=== PATIENT | male | born 1945 | race Caucasian/White ===

== ENCOUNTER 2025-01-13 10:07 | Outpatient (RCR) | payer MEDICARE, OTHER, SELFPAY ==
[2024-11-30 11:53] LABS: INR 1.5; Prothrombin Time 18.6 Seconds (11.1-14.7)
--- OUTSIDE RECORDS SUMMARY | 2024-11-30 12:18 | XMS_ITS | CONTINUITY OF CARE DOCUMENT ---
Author Name evelia altamirano Address Unknown Organization [facility] Address [address] [place] [address] Phone [phone] Care Team Providers Care Barrel Painter Name Role Phone Israel SARGENT, Chris Balbuena Unavailable [phone] STACI SARGENT, SPIKE Unavailable STACI SARGENT, SPIKE Unavailable [phone] PROBLEMS Condition Status Date Provider Notes Syncope active Irene Rodrigez Chronic atrial fibrillation active Sumeet Nascimento Hypertension active Janette Ricks [facility] Dizziness completed - Chris Wood MD Mitral regurgitation active Chris Wood MD Left atrial enlargement active Chris Wood MD Hyperlipidemia active ? Chris Wood MD Tobacco use quit active Chris Wood MD Obstructive sleep apnea - on CPAP active Chris Wood MD Shortness of breath completed - Chris Wood MD Bradycardia sinus active Janette Ricks [facility] CAD - 11/18 50% LCX active Chris Wood MD Carotid artery stenosis, <50% ICA b/l active Chris Wood MD Current use of Coumadin - INR by Dr. 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 Chris Wood MD ENCOUNTERS Date Type Provider Location Encounter Diag nosis 0 - 0 In-person encounter Office Visit Chris Wood MD [place] [facility] 4 - 6 In-person encounter Office Visit Chris Wood MD [place] [facility] Diastolic CHF 6 - 0 In-person encounter Office Visit Chris Wood MD [place] [facility] 3 - 3 In-person encounter Office Visit Amilcar Mendez MD [facility] Cardiology examination 4 - 0 In-person encounter Office Visit Chris Wood MD [place] [facility] CVADyspnea on exertionOther terminal operator (current) drug therapy 8 - 1 In-person encounter Office Visit Chris Wood MD [place] [facility] 8 - 2 In-person encounter Office Visit Chris Wood MD [place] [facility] Chronic atrial fibrillation 8 - 9 In-person encounter Office Visit Chris Wood MD [place] [facility] Chronic atrial fibrillationDizzinessShortness of breath 7 - 7 In-person encounter Office Visit Chris Wood MD [place] [facility] TIA 1 - 6 In-person encounter Office Visit Chris Wood MD [place] [facility] Chronic atrial fibrillationObstructive sleep apnea - on CPAPCAD - 11/18 50% LCXCurrent use of Coumadin - INR by Dr. Seay origin of LCX from RCA 4 - 1 In-person encounter Office Visit Chris Wood MD [place] [facility] CAD - 11/18 50% LCXCarotid artery stenosis, <50% ICA b/lCurrent use of Coumadin - INR by Dr. Mendez 4 - 6 In-person encounter Office Visit Chris Wood MD [place] [facility] Chronic atrial fibrillationHypertensionMitral regurgitationLeft atrial enlargementHyperlipidemiaTobacco use quitObstructive sleep apnea - on CPAPBradycardia sinus VITAL SIGNS Date Observation Value Provider Body Mass Index (Ratio) 22.44 kg/m2 Trevon Lainez blood pressure, diastolic 90 mm[Hg] Pedrito ylsybil [facility] blood pressure, systolic 152 mm[Hg] Mayda lamb [facility] oxygen saturation, oximetry 95 % Maira [facility] pulse rate 87 /min Maira [facility] weight E&M 152 [lb_av] [facility] [in_i] [facility] Body Mass Index (Ratio) 37.98 kg/m2 Chris Wood MD blood pressure, diastolic 99 mm[Hg] [facility] blood pressure, systolic 159 mm[Hg] Nataly nicho [place] oxygen saturation, oximetry 94 % [facility] pulse rate 65 /min [facility] weight E&M 257.2 [lb_av] [facility] blood pressure, cuff size regular [facility] height E&M 69 [in_i] [facility] Body Mass Index (Ratio) 37.36 kg/m2 Chang Gonzales blood pressure, diastolic 86 mm[Hg] Am kaylee Ventimiglia [facility] blood pressure, systolic 141 mm[Hg] [place] nda Ventimiglia [facility] oxygen saturation, oximetry 96 % Katelin Ventimiglia [employer]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 respiratory rate E&M 22 /min Katelin Ventimiglia [employer]ICE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 pulse rate 85 /min Katelin Ventimig jaswinder [facility] weight E&M 253 [lb_av] Katelin Ventimig jaswinder [facility] Body Mass Index (Ratio) 37.65 kg/m2 Livan Mendez MD blood pressure, diastolic 99 mm[Hg] Nata nkLog blood pressure, systolic 148 mm[Hg] Keke kLog oxygen saturation, oximetry 94 % Masha Bradshaw pulse rate 87 /min Masha Bradshaw blood pressure, cuff size regular Paddy tellez Brad[place] blood pressure, diastolic 99 mm[Hg] Paddy tellez [place] blood pressure, systolic 148 mm[Hg] Tab ithsybil Bradshaw weight E&M 255 [lb_av] Masha Bradshaw respiratory rate E&M 12 /min Masha Bradshaw height E&M 69 [in_i] Masha [place] Body Mass Index (Ratio) 37.21 kg/m2 Oanh Monahan blood pressure, cuff size large Ke rri Aldairuenevish blood pressure, diastolic 96 mm[Hg] Ke rri [place] blood pressure, systolic 162 mm[Hg] Riley ri Elia oxygen saturation, oximetry 95 % Irene Reginenetye respiratory rate E&M 12 /min Irene G arthurenenfelder pulse rate 84 /min Irene Gruenenfe ld weight E&M 252 [lb_av] Irene Aldairuenenfe ld height E&M 69 [in_i] Irene Gruenenfe [facility] Body Mass Index (Ratio) 36.77 kg/m2 Oanh Monahan blood pressure, diastolic 105 mm[Hg] Nata [facility]Log[facility] blood pressure, systolic 163 mm[Hg] Keke [facility]Logic blood pressure, diastolic 105 mm[Hg] Nata nkLogic blood pressure, systolic 163 mm[Hg] Keke kLogic blood pressure, diastolic 105 mm[Hg] Ca therine Rob blood pressure, systolic 163 mm[Hg] Cat herine [place] oxygen saturation, oximetry 98 % Beatriz [place] respiratory rate E&M 16 /min Catheri ne [place] pulse rate 86 /min Beatriz [place] weight E&M 249 [lb_av] Beatriz [place] blood pressure, cuff size large Ca therine Rob height E&M 69 [in_i] Beatriz Rob Body Mass Index (Ratio) 36.77 kg/m2 Grupo davis Pily blood pressure, cuff size large Ke rri Gruenenfelder blood pressure, diastolic 72 mm[Hg] Ke rri Gruenenfelder blood pressure, systolic 110 mm[Hg] Riley ri Kareenelder oxygen saturation, oximetry 98 % Irene [place] respiratory rate E&M 16 /min Irene avendano pulse rate 82 /min Irene Reginenenfe lder weight E&M 249 [lb_av] Irene Gruenenfe lder height E&M 69 [in_i] Irene Gruenenfe lder Body Mass Index (Ratio) 36.03 kg/m2 Grupo Nascimento oxygen saturation, oximetry 96 % Staci Lockhart respiratory rate E&M 16 /min Staci Lockhart pulse rate 86 /min Staci mark blood pressure, cuff size regular Cy ruy Lockhart blood pressure, diastolic 76 mm[Hg] Cy nthia Lockhart blood pressure, systolic 130 mm[Hg] Desire Lockhart weight E&M 244 [lb_av] Staci mark height E&M 69 [in_i] Staci Colon l Body Mass Index (Ratio) 36.38 kg/m2 Grupo Nascimento blood pressure, diastolic 93 mm[Hg] Yessi Salgado blood pressure, systolic 144 mm[Hg] Litzy Salgado oxygen saturation, oximetry 96 % Karan Salgado respiratory rate E&M 18 /min Eladio Salgado pulse rate 85 /min Karan Young sammyangela weight E&M 246.4 [lb_av] Karan goodon height E&M 69 [in_i] Karan Young sammy Body Mass Index (Ratio) 36.03 kg/m2 Grupo Nascimento blood pressure, cuff size regular Ke luis Rodrigez blood pressure, diastolic 80 mm[Hg] Ke rri Elia blood pressure, systolic 120 mm[Hg] Riley Rodrigez weight E&M 244 [lb_av] Irene wilhelmer oxygen saturation, oximetry 98 % Irene Rodrigez respiratory rate E&M 16 /min Irene avendano pulse rate 84 /min Irene wilhelmer height E&M 69 [in_i] Irene wilhelmer Body Mass Index (Ratio) 36.50 kg/m2 Grupo Nascimento blood pressure, resting Yes Chris Wood MD blood pressure, diastolic 86 mm[Hg] Yessi Salgado blood pressure, systolic 142 mm[Hg] Litzy Salgado oxygen saturation, oximetry 96 % Karan Salgado respiratory rate E&M 18 /min Eladio Salgado pulse rate 74 /min Karan pereira weight E&M 247.2 [lb_av] Karan traore height E&M 69 [in_i] Karan pereira Body Mass Index (Ratio) 36.32 kg/m2 Grupo davis [facility] blood pressure, cuff size regular Valerio rebolledoi Elia blood pressure, diastolic 94 mm[Hg] Valerio rebolledoi Elia blood pressure, systolic 142 mm[Hg] Riley maciel Rodrigez oxygen saturation, oximetry 98 % Irene Rodrigez respiratory rate E&M 16 /min Irene avendano pulse rate 79 /min Irene Robinson [place] weight E&M 246 [lb_av] Irene Robinson [place] height E&M 69 [in_i] Irene Robinson vizcarra ALLERGIES No Known Drug Allergies RESULTS Date Observation Value Provider Reference Range Interpretation Location thyroid stimulating hormone, serum 1.610 u[IU]/mL [facility] platelet count 180 10*3/mm3 [facility] platelet count 180 10*3/uL [facility] red blood cell distribution width 13.2 % [facility] mean corpuscular hemoglobin concentration, RBC 33.9 g/dL [facility] mean corpuscular hemoglobin, RBC 32.7 pg [facility] mean corpuscular volume, RBC 96.7 fL [facility] hematocrit, blood 38.4 % [facility] hemoglobin, blood 13.0 g/dL [facility] erythrocyte (RBC) count 3.97 10*6/mm3 [facility] leukocyte count, blood 4.9 10*3/mm3 [facility] triglyceride, serum, fasting 80 mg/dL [facility] HDL cholesterol, serum 42 mg/dL [facility] LDL cholesterol, serum 110 mg/dL [facility] cholesterol, serum 168 mg/dL [facility] carbon dioxide, venous blood 29 mmol/L [facility] protein, total, serum 6.1 g/dL [facility] albumin, serum 3.5 g/dL [facility] bilirubin, serum, total 0.60 mg/dL [facility] alkaline phosphatase, serum 67 1/L [facility] alanine aminotransferase (SGPT), serum 17 1/L [facility] aspartate aminotransferase (SGOT), serum 27 1/L [facility] calcium, serum 8.5 mg/dL [facility] blood glucose, random 92 mg/dL [facility] creatinine, serum 1.10 mg/dL [facility] urea nitrogen, blood 19 mg/dL [facility] carbon dioxide, serum, total 29 mmol/L [facility] chloride, serum 105 mmol/L [facility] potassium, serum 4.5 mmol/L [facility] sodium, serum 140 mmol/L [facility] LDL cholesterol, serum 99 mg/dL [facility] LDL cholesterol, serum 102 mg/dL Chris Wood MD very low density lipoproteins 44.8 mg/dL [facility] 5.0 - 40.0 High LDL/HDL (low-density lipoprotein/high-den sity lipoprotein) ratio 2.3 RATIO [facility] - lipoprotein, beta, serum, point, quantitative, calculated 102.2 (?) [facility] 0.0 - 100.0 High HDL cholesterol, serum 44.0 mg/dL [facility] 35.0 - 55.0 cholesterol, serum 191.0 mg/dL [facility] 0.0 - 200.0 triglyceride, serum, fasting 224.0 mg/dL [facility] 0.0 - 150.0 High anion gap, serum 14.9 [facility] - albumin/globulin ratio, serum 2.0 g/dL [facility] 1.1 - 2.5 globulin, serum 2.1 [facility] 2.3 - 3.8 Low urea nitrogen/creatinine ratio, serum 14.0 [facility] - Estimated Glomerular Filtration Rate (calc) 78.1 (?) [facility] 59.0 - chloride, serum 100.1 mmol/L [facility] 98.0 - 107.0 potassium, serum 5.0 mmol/L [facility] 3.5 - 5.1 sodium, serum 140.0 mmol/L [facility] 136.0 - 145.0 creatinine, serum 1.0 mg/dL [facility] 0.7 - 1.2 carbon dioxide, venous blood 25.0 mmol/L [facility] 23.0 - 31.0 albumin, serum 4.3 g/dL [facility] 3.5 - 5.2 calcium, serum 9.0 mg/dL [facility] 8.6 - 10.2 aspartate aminotransferase (SGOT), serum 28.0 1/L [facility] 0.0 - 40.0 alkaline phosphatase, serum 91.0 1/L [facility] 40.0 - 130.0 alanine aminotransferase (SGPT), serum 25.0 1/L [facility] 0.0 - 41.0 protein, total, serum 6.4 g/dL [facility] 6.6 - 8.7 Low bilirubin, serum, total 0.8 mg/dL [facility] 0.0 - 1.2 urea nitrogen, blood 14.0 mg/dL [facility] 8.0 - 23.0 blood glucose, random 92.0 mg/dL [facility] 74.0 - 99.0 prothrombin time (patient) 37.6 s [facility] 9.0 - 11.5 High international normalized ratio (INR) 3.3 [facility] 0.9 - 1.1 High hemoglobin A1C, blood, as % of total hemoglobin 5.5 % [facility] 4.0 - 5.6 HISTORY OF MEDICATION USE Medication Status Instructions Dates Provider Indications Com ments Jardiance 10 mg tablet active Take 1 tablet by mouth once a day Irene Rodrigez furosemide 20 mg tablet active Take 1 tablet by mouth once a day Irene Rodrigez ASPIRIN ADULT LOW DOSE 81 MG ORAL TABLET DELAYED RELEASE completed One Tab By Mouth Daily - Staci Lockhart metoprolol tartrate 25 mg tablet active 1 tablet twice a day Irene Rodrigez per hospital d/c alprazolam 0.5 mg tablet active Take 1 once a day Irene Rodrigez terazosin 5 mg capsule active Take 1 every night Irene Rodrigez atorvastatin 80 mg tablet active 1 tablet once a day Irene Rodrigez Per hospital d/c records COUMADIN TABLET active Per Dr. Jaramillo Irene Rodrigez omeprazole 20 mg tablet,delayed release (/EC) active Take 1 once a day Irene Rodrigez Celexa 40 mg tablet active Take 1 once a day Irene Rodrigez SOCIAL HISTORY Date Observation Value Provider personal history of marijuana use no Chris Wood MD drug use no Chris Wood MD alcohol use no Chris Wood MD smoking, year quit 1967 Chris uriostegui MD number of years as a smoker 2 a Chris Wood MD smoking history, tot al pack/day 1/2 Chris Wood MD cigarette use yes Chris Wood MD smoking status Former smoker Crhis Wood MD personal history of marijuana use no Chris Wodo MD drug use no Chris Wood MD alcohol use no Chris Wood MD smoking, year quit 1967 Chris uriostegui MD number of years as a smoker 2 a Chris Wood MD smoking history, tot al pack/day 1/2 Chris Wood MD cigarette use yes Chris Wood MD smoking status Former smoker Chris Wood MD personal history of marijuana use no Katelin Ventimiglia 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 drug use no Katelin Ventimig jaswinder 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 Hannah Monahan social history reviewed E&M revi ewed - no changes required Hannah Monahan smoking, year quit 1967 Beatriz [place] number of years as a smoker 2 a Beatriz [place] smoking history, tot al pack/day 1/2 Beatriz Rob cigarette use yes Beatriz [place] smoking status Former smoker Beatriz Ot is social history reviewed E&M revi ewed - no changes required Raheel Nascimento smoking, year quit 1967 Irene medrano number of years as a smoker 2 a Irene Rodrigez smoking history, tot al pack/day 1/2 Irene Rodrigez cigarette use yes Irene Mathur elder smoking status Former smoker Irene Ewing nfelder social history reviewed E&M revi ewed - no changes required Raheel Pily smoking, year quit 1967 Satci doe number of years as a smoker 2 a Staci Richy smoking history, tot al pack/day 1/2 Staci Lockhart cigarette use yes Staci Thom melgoza smoking status Former smoker Staci Bryson yo social history reviewed E&M revi ewed - no changes required Chris Wood MD alcohol use no Karan christiansonon smoking, year quit 1967 Karan Salgado number of years as a smoker 2 a KaranMonik Salgado smoking history, tot al pack/day 1/2 Karan Salgado cigarette use yes Karan Hudson eugenie smoking status Former smoker Karan Blackmon social history reviewed E&M revi ewed - no changes required Chris Wood MD alcohol use no Irene Ewingkarl vizcarra smoking, year quit 1967 Irene hammondstevie number of years as a smoker 2 a Irene Mathurmaximjeramie smoking history, tot al pack/day 1/2 Raheel Pily cigarette use yes Irene Mathur elder smoking status Former smoker Irene Ewing angelelder alcohol use no KaranMonik Hudsone nson smoking, year quit 1967 Karan Salgado number of years as a smoker 2 a Karan Salgado smoking history, tot al pack/day 1/2 ppd Karan Salgado cigarette use yes Karan traore smoking status Former smoker Karan Blackmon social history E&M Smoking Histo ry: Edi joyce is a former smoker. Chris Wood MD social history reviewed E&M revi ewed - no changes required Chris Wood MD alcohol use no Irene Robinson wilhelmer number of years as a smoker 2 a Irene Elia smoking history, tot al pack/day 1/2 ppd Irene Elia smoking, year quit 1967 Irene Matthews marcela cigarette use yes Irene Quinterosgabrielangel leela smoking status Former smoker Irene Quinterosgabriel gamble FUNCTIONAL STATUS Date Observation Value Provider HRA, CV Assess/Plan, Angina (inactive) Management Plan continue current therapy Dorian Lainez HRA, CV Assess/Plan, Angina (inactive) Management Plan continue current therapy Chris Wood MD HRA, CV Assess/Plan, Angina (inactive) Management Plan schedule PCI Katelin Rankin VOICE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 HRA, CV Assess/Plan, Angina (inactive) Management Plan continue current therapy Chris Wood MD HRA, CV Assess/Plan, Angina (inactive) Management Plan continue current therapy Hannah Monahan HRA, CV Assess/Plan, Angina (inactive) Management Plan continue current therapy Raheel Nascimento HRA, CV Assess/Plan, Angina (inactive) Management Plan continue current therapy Chris Wood MD HRA, CV Assess/Plan, Angina (inactive) Management Plan continue current therapy Chris Wood MD HRA, CV Assess/Plan, Angina (inactive) Management Plan continue current therapy Chris Wood MD FAMILY HISTORY Family Member Condition Mother Family History of CV A or Stroke: INSURANCE PROVIDERS Payer name Policy type / Coverage type [place] red libertarian ID AARP MEDICARE ADVANTAGE PAT[employer]OT HMO-POS [employer] insurance company [id number] NATHAN SONG [id number] ADVANCE DIRECTIVES Name Date DISCUSSED - NO DECISION MADE TREATMENT PLAN Date Name Performer [id number],C, He would like ot lose weight and we will screen him for the Redefine study. Hannah Monahan [id number],C, H is updated medication list for this problem includes: Atorvastatin 80 Mg Tablet (Atorvastatin) ..... 1 tablet once a day Hannah Monahan [id number],C, B P today: 162/96 P rior BP: 163/105 (12/10/2021) Labs Reviewed: C reat: 1.10 (10/19/2018) C hol: 168 (10/18/2018) HDL: 42 (10/18/2018) LDL: 99 (10/19/2018) T (10/18/2018) His updated medication list for this problem includes: Terazosin 5 Mg Capsule (Terazosin) ..... Take 1 every night Metoprolol Tartrate 25 Mg Tablet (Metoprolol tartrate) ..... 1 tablet twice a day Hannah Monahan [id number],C, H is updated medication list for this problem includes: Metoprolol Tartrate 25 Mg Tablet (Metoprolol tartrate) ..... 1 tablet twice a day Hannah Monahan [id number],C,P t complains of dyspnea with moderate exertion Pt denies chest pain. Will obtain echo. Will check labwork. Will obtain stress test regadenosen to assess for possible ischemia. H is updated medication list for this problem includes: Metoprolol Tartrate 25 Mg Tablet (Metoprolol tartrate) ..... 1 tablet twice a day Hannah Monahan [id number],C,P t complains of dyspnea with moderate exertion Pt denies chest pain. Will obtain echo. Will check labwork. Will obtain stress test regadenosen to assess for possible ischemia. Hannah Monahan [id number],S, T he patient is using CPAP on a regular basis. The patient has been benefiting from therapy and should continue use. Hannah Monahan [id number],C, H is updated medication list for this problem includes: Atorvastatin Calcium 80 Mg Oral Tablet (Atorvastatin calcium) ..... One tablet daily Hannah Monahan [id number],C, B P today: 163/105 P rior BP: 110/72 (11/19/2020) Labs Reviewed: C reat: 1.10 (10/19/2018) C hol: 168 (10/18/2018) HDL: 42 (10/18/2018) LDL: 99 (10/19/2018) T (10/18/2018) His updated medication list for this problem includes: Metoprolol Tartrate 25 Mg Oral Tablet (Metoprolol tartrate) ..... One tab. twice daily Terazosin Hcl 5 Mg Oral Capsule (Terazosin hcl) ..... Take one pill at bedtime Hannah Monahan [id number],C,. No new Sx of SOB or CP. He is cleared for surgery from cardiology perspective. He can proceed to surgery at this time. His updated medication list for this problem includes: Metoprolol Tartrate 25 Mg Oral Tablet (Metoprolol tartrate) ..... One tab. twice daily Coumadin Tablet (Warfarin sodium tabs) ..... Per dr. staci Monahan [id number],C, No new Sx of SOB or CP. He is cleared for surgery from cardiology perspective. He can proceed to surgery at this time. His updated medication list for this problem includes: Metoprolol Tartrate 25 Mg Oral Tablet (Metoprolol tartrate) ..... One tab. twice daily Coumadin Tablet (Warfarin sodium tabs) ..... Per dr. staci Monahan Take your medication s every day as directed. Failing to take your medication properly can have a negative impact on your treatment. Please monitor your blood pressure and heart rate regularly, at least weekly. Sit quietly for 5 minutes before taking your blood pressure and heart rate. Recommend a healthy diet plan which would include lots of vegetables and fruits, poultry and fish, low fat dairy products. It would include lower quantities of carbohydrates, like breads, potatoes, rice and pasta. Only small amounts of sweets should be included. Recommend a low salt, or no added salt diet. Exercise of at least 3 times a week is recommended. Even small amounts of exercise regularly can be less intimidating but still beneficial. Please contact us if you have new Chest Pain, Shortness of Breath, Palpitations, Dizziness, or Edema. Janette Ricks Cardiology: H is updated medication list for this problem includes: Furosemide 20 Mg Tablet (Furosemide) ..... Take 1 tablet by mouth once a day Terazosin 5 Mg Capsule (Terazosin) ..... Take 1 every night Metoprolol Tartrate 25 Mg Tablet (Metoprolol tartrate) ..... 1 tablet twice a day BP today: 152/90 P rior BP: 159/99 (09/05/2024) Labs Reviewed: C reat: 1.10 (10/19/2018) C hol: 168 (10/18/2018) HDL: 42 (10/18/2018) LDL: 99 (10/19/2018) T (10/18/2018) Dorian Lainez Cardiology Dorian Lainez Cardiology: H is updated medication list for this problem includes: Atorvastatin 80 Mg Tablet (Atorvastatin) ..... 1 tablet once a day Dorian Lainez Cardiology:CT denson ry angio results are pending regarding LCX from RCA CAD stable on cath on most recent cath. no CP Dorian Lainez Cardiology:Continues to be CHF class II. He feels a little better with jardiance/lasix, but still SOB. Continue current meds. Dorian Lainez Cardiology:feels better on jardi ance/lasix. Dorian Lainez Cardiology Chris Wood MD Cardiology: H is updated medication list for this problem includes: Atorvastatin 80 Mg Tablet (Atorvastatin) ..... 1 tablet once a day Chris Wood MD Cardiology: o n coumadin Chris Wood MD Cardiology: B P today: 159/99 P rior BP: 141/86 (07/18/2024) Labs Reviewed: C reat: 1.10 (10/19/2018) C hol: 168 (10/18/2018) HDL: 42 (10/18/2018) LDL: 99 (10/19/2018) T (10/18/2018) His updated medication list for this problem includes: Furosemide 20 Mg Tablet (Furosemide) ..... Take 1 tablet by mouth once a day Terazosin 5 Mg Capsule (Terazosin) ..... Take 1 every night Metoprolol Tartrate 25 Mg Tablet (Metoprolol tartrate) ..... 1 tablet twice a day Chris Wood MD Cardiology: L VEDP 35mmHg. SOB with mimim,al exertion. Add jardiance and lasix. Consider clinical trials. Chris Wood MD Cardiology: O btain coronary CTA to evaluate course. Chris Wood MD Cardiology: Aga escobar CP. CAD stable on cath. Chris Wood MD Cardiology:last cath in 2016 W ill need f/u cath to determine if new or worsening stenosis H is updated medication list for this problem includes: Metoprolol Tartrate 25 Mg Tablet (Metoprolol tartrate) ..... 1 tablet twice a day Katelinkaylee Rankin [facility] Cardiology:Continues to have issues with ESCOBAR has progressed H e has had an abnormal stress test W ill plan for [facility] Cardiology:The patie nt is using CPAP on a regular basis. The patient has been benefiting from therapy and should continue use. [place] [facility] Cardiology:rate cont rolled O n warfarin for AC H is updated medication list for this problem includes: Metoprolol Tartrate 25 Mg Tablet (Metoprolol tartrate) ..... 1 tablet twice a day [place] [facility] Cardiology: H is updated medication list for this problem includes: Atorvastatin 80 Mg Tablet (Atorvastatin) ..... 1 tablet once a day Katelinkaylee Rankin [facility] Cardiology:BP 141/86 C ontinue present medication H is updated medication list for this problem includes: Terazosin 5 Mg Capsule (Terazosin) ..... Take 1 every night Metoprolol Tartrate 25 Mg Tablet (Metoprolol tartrate) ..... 1 tablet twice a day [place] [facility] Cardiology:Patient d irected to see regular paint prepper, Dr. Wood on 07/18 Amilcar Mendez MD Cardiology: He would like ot lose weight and we will screen him for the Redefine study. Hannah Monahan Cardiology: H is updated medication list for this problem includes: Atorvastatin 80 Mg Tablet (Atorvastatin) ..... 1 tablet once a day Hannah Monahan Cardiology: B P today: 162/96 P rior BP: 163/105 (12/10/2021) Labs Reviewed: C reat: 1.10 (10/19/2018) C hol: 168 (10/18/2018) HDL: 42 (10/18/2018) LDL: 99 (10/19/2018) T (10/18/2018) His updated medication list for this problem includes: Terazosin 5 Mg Capsule (Terazosin) ..... Take 1 every night Metoprolol Tartrate 25 Mg Tablet (Metoprolol tartrate) ..... 1 tablet twice a day Hannah Monahan Cardiology: H is updated medication list for this problem includes: Metoprolol Tartrate 25 Mg Tablet (Metoprolol tartrate) ..... 1 tablet twice a day Hannah Monahan Cardiology:Pt compla ins of dyspnea with moderate exertion Pt denies chest pain. Will obtain echo. Will check labwork. Will obtain stress test regadenosen to assess for possible ischemia. H is updated medication list for this problem includes: Metoprolol Tartrate 25 Mg Tablet (Metoprolol tartrate) ..... 1 tablet twice a day Hannah Monahan Cardiology:Pt compla ins of dyspnea with moderate exertion Pt denies chest pain. Will obtain echo. Will check labwork. Will obtain stress test regadenosen to assess for possible ischemia. Hannah Monahan Cardiology: T he patient is using CPAP on a regular basis. The patient has been benefiting from therapy and should continue use. Hannah Monahan Cardiology: H is updated medication list for this problem includes: Atorvastatin Calcium 80 Mg Oral Tablet (Atorvastatin calcium) ..... One tablet daily Hannah Monahan Cardiology: B P today: 163/105 P rior BP: 110/72 (11/19/2020) Labs Reviewed: C reat: 1.10 (10/19/2018) C hol: 168 (10/18/2018) HDL: 42 (10/18/2018) LDL: 99 (10/19/2018) T (10/18/2018) His updated medication list for this problem includes: Metoprolol Tartrate 25 Mg Oral Tablet (Metoprolol tartrate) ..... One tab. twice daily Terazosin Hcl 5 Mg Oral Capsule (Terazosin hcl) ..... Take one pill at bedtime Hannah Monahan Cardiology:. No new Sx of SOB or CP. He is cleared for surgery from cardiology perspective. He can proceed to surgery at this time. His updated medication list for this problem includes: Metoprolol Tartrate 25 Mg Oral Tablet (Metoprolol tartrate) ..... One tab. twice daily Coumadin Tablet (Warfarin sodium tabs) ..... Per dr. staci Monahan Cardiology: No new S x of SOB or CP. He is cleared for surgery from cardiology perspective. He can proceed to surgery at this time. His updated medication list for this problem includes: Metoprolol Tartrate 25 Mg Oral Tablet (Metoprolol tartrate) ..... One tab. twice daily Coumadin Tablet (Warfarin sodium tabs) ..... Per dr. staci Monahan [facility] F[facility] ow up :Mild MR noted on echo last year. Raheel Nascimento [facility] F[facility] ow up :His updated medication list for this problem includes: Atorvastatin Calcium 80 Mg Oral Tablet (Atorvastatin calcium) ..... One tablet daily Raheel [facility] Foll ow up :BP today: 110/72 P rior BP: 130/76 (11/09/2019) His updated medication list for this problem includes: Metoprolol Tartrate 25 Mg Oral Tablet (Metoprolol tartrate) ..... One tab. twice daily Terazosin Hcl 5 Mg Oral Capsule (Terazosin hcl) ..... Take one pill at bedtime Raheel [facility] Foll ow up :The patient is using CPAP on a regular basis. The patient has been benefiting from therapy and should continue use. [facility] Follow up Matt purcell [facility] Foll ow up :Doing well. No chest pain, SOB, palpitations. Will continue current medications. Echo last year was normal. His updated medication list for this problem includes: Metoprolol Tartrate 25 Mg Oral Tablet (Metoprolol tartrate) ..... One tab. twice daily Coumadin Tablet (Warfarin sodium tabs) ..... Per dr. jaramillo Raheel [facility] Foll ow up :Doing well. No chest pain, SOB, palpitations. Notes rare dizziness upon standing up at the chiropractor's office. No dizziness at home. Will continue current medications. Echo last year was normal. His updated medication list for this problem includes: Metoprolol Tartrate 25 Mg Oral Tablet (Metoprolol tartrate) ..... One tab. twice daily [facility] Cardiology follow up :Severe LAE on last echo. Will obtain f/u echo. [facility] Cardiology follow up :The patient is using CPAP on a regular basis. The patient has been benefiting from therapy and should continue use. [facility] Cardiology follow up :CHOL: 168 (10/18/2018) LDL: 99 (10/19/2018) HDL: 42 (10/18/2018) T (10/18/2018) His updated medication list for this problem includes: Atorvastatin Calcium 80 Mg Oral Tablet (Atorvastatin calcium) ..... One tablet daily [facility] Cardiology follow up Raheel Mark [facility] Cardiology follow up :BP today: 130/76 P rior BP: 144/93 (11/08/2018) Labs Reviewed: C reat: 1.10 (10/19/2018) His updated medication list for this problem includes: Metoprolol Tartrate 25 Mg Oral Tablet (Metoprolol tartrate) ..... One tab. twice daily Terazosin Hcl 5 Mg Oral Capsule (Terazosin hcl) ..... Take one pill at bedtime [facility] Cardiology follow up :Denies any symptoms. His updated medication list for this problem includes: Metoprolol Tartrate 25 Mg Oral Tablet (Metoprolol tartrate) ..... One tab. twice daily Coumadin Tablet (Warfarin sodium tabs) ..... Per dr. staci Pickering [facility] Cardiology follow up :No recurre nce. [facility] Cardiology follow up :No symptoms. His updated medication list for this problem includes: Metoprolol Tartrate 25 Mg Oral Tablet (Metoprolol tartrate) ..... One tab. twice daily Coumadin Tablet (Warfarin sodium tabs) ..... Per dr. jaramillo Orders: E KG (CPT-98406) C omplete Echo (CPT-16408) Raheel [facility] Cardiology:His updat ed medication list for this problem includes: Metoprolol Tartrate 25 Mg Oral Tablet (Metoprolol tartrate) ..... One tab. twice daily Coumadin Tablet (Warfarin sodium tabs) ..... Per dr. jaramillo Corrected meds. Raheel Nascimento Cardiology:BP today: 144/93 P rior BP: 120/80 (12/03/2016) His updated medication list for this problem includes: Metoprolol Tartrate 25 Mg Oral Tablet (Metoprolol tartrate) ..... One tab. twice daily Terazosin Hcl 5 Mg Oral Capsule (Terazosin hcl) ..... Take one pill at bedtime Corrected meds. [facility] Cardiology:BP today: 144/93 P rior BP: 120/80 (12/03/2016) His updated medication list for this problem includes: Metoprolol Succinate Er 50 Mg Oral Tablet Extended Release 24 Hour (Metoprolol succinate) ..... 1/2 pill in the am and 1/2 pill in the pm Terazosin Hcl 5 Mg Oral Capsule (Terazosin hcl) ..... Take one pill at bedtime Chris Wood MD Cardiology:His [facility] ed medication list for this problem includes: Metoprolol Succinate Er 50 Mg Oral Tablet Extended Release 24 Hour (Metoprolol succinate) ..... 1/2 pill in the am and 1/2 pill in the pm Coumadin 10 Mg Oral Tablet (Warfarin sodium) ..... Take one pill a day Chris Wood MD Cardiology Chris Wood MD Cardiology:Pt had an admission to [facility] with a TIA. His INR was sub-therapeutic (1.7). KAILYN and carotid duplex were negative. Will continue Coumadin. Chris Wood MD Cardiology Hospital Follow up:Cardiac cath in November showed 1+ MR. [facility] Cardiology Hospital Follow up [facility] Cardiology Hospital Follow up [facility] Cardiology Hospital Follow up 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 No other coronary stenosis was seen. [facility] Cardiology Hospital Follow up:Cardiac cath did not reveal significant CAD. He's going to see ENT. If no relief of dizziness, will consider tilt table test. [facility] Cardiology:Myoview s can showed anteroseptal ischemia and we will schedule a cardiac cath. Chris Wood MD Cardiology:On Coumadin for Afib. Chris Wood MD Cardiology:BP today: 142/86 P rior BP: 142/94 (09/15/2016) His updated medication list for this problem includes: Metoprolol Succinate Er 50 Mg Oral [id number] (Metoprolol succinate) ..... 1/2 pill in the am and 1/2 pill in the pm Terazosin Hcl 5 Mg Oral Caps (Terazosin hcl) ..... Take one pill at bedtime Chris Wood MD Cardiology Chris Wood MD Cardiology:Carotid d uplex showed <50% stenosis of ICA bilaterally. Chris Wood MD Cardiology:Telesentry showed no severe bradycardia. Chris Wood MD Cardiology:His updat ed medication list for this problem includes: Metoprolol Succinate Er 50 Mg Oral [id number]-uty (Metoprolol succinate) ..... 1/2 pill in the am and 1/2 pill in the pm Coumadin 10 Mg Oral Tabs (Warfarin sodium) ..... Take one pill a day Chris Wood MD Cardiology:Telesentr y showed Afib and no severe bradycardia noted. Chris Wood MD Cardiology:PFT's wer e essentially normal. Myoview scan showed anteroseptal ischemia and we will schedule a cardiac cath. Chris Wood MD Cardiology New Patient:TTE on showed mild MR. Chris Wood MD Cardiology New Patie nt:TTE on 09/10 showed severe LAE. Chirs Wood MD Cardiology New Patie nt:His updated medication list for this problem includes: Lipitor 40 Mg Oral Tabs (Atorvastatin calcium) ..... Take one and one half a day Chris Wood MD Cardiology New Patient:Compliant with CPAP. Chris Wood MD Cardiology New Patie nt:BP today: 142/94 His updated medication list for this problem includes: Metoprolol Succinate Er 50 Mg Oral [id number] (Metoprolol succinate) ..... 1/2 pill in the am and 1/2 pill in the pm Terazosin Hcl 5 Mg Oral Caps (Terazosin hcl) ..... Take one pill at bedtime Chris Wood MD Cardiology New Patie nt:Holter showed only nocturnal episodes of bradycardia. Chris Wood MD Cardiology [facility] nt:Orders: S TR - Adenosine (CPT-56007) F VC - 54364 (73514) F RC - 38719 (24293) D LCO - 23619 (25143) Chris Wood MD Cardiology [facility] nt:He had a syncopal episode and also complains of dizziness upon standing up. Holter monitor showed some bradycardia episodes, nocturnal only. Orders: S TR - Adenosine (CPT-41699) C arotid Duplex Bilateral (CPT-51029) M obile Cardiac Tele (CPT-13942) Chris Wood MD Cardiology [facility] nt:He had a syncopal episode. Holter monitor showed some bradycardia episodes, nocturnal only. Orders: S NOMED-CT: [id number] Current Medications Documented ([id number]) E KG (CPT-48572) S TR - Adenosine (CPT-39096) C arotid Duplex Bilateral (CPT-67646) M obile Cardiac Tele (CPT-39729) Chris Wood MD Cardiology [facility] nt:The pt has a hx of chronic Afib for many years. On Metoprolol and Coumadin. Orders: S NOMED-CT: [id number] Current Medications Documented ([id number]) EKG (CPT-38747) S TR - Adenosine (CPT-37669) M obile Cardiac Tele (CPT-81675) Chris Wood MD Date Name CT Angio Coronaries PROTHROMBIN TIME WIT H INR LIPID PANEL CBC (INCLUDES DIFF/P LT) BASIC METABOLIC PANE L W/EGFR RPM (remote patient monitoring) BASIC METABOLIC PANE L W/EGFR Microalb/Creatinine Urine, Random CBC (INCLUDES DIFF/P LT) CRP, high sensitivit y PROBNP, N TERMINAL Lipoprotein (a) LIPID PANEL HEMOGLOBIN A1c Stress Regadenoson Complete Echo Complete Echo PROTHROMBIN TIME WIT H INR COMPREHENSIVE METABO LIC PANEL W/EGFR BASIC METABOLIC PANE L W/EGFR Cardiac Cath - Left - GC HEMOGLOBIN A1c LIPID PANEL DLCO - 50916 FRC - 78465 FVC - 15814 Aortic Abdominal Ult rasound Carotid Duplex Bilat eral STR - Adenosine Mobile Cardiac Tele HISTORY OF PROCEDURES Procedure Date Procedure Name Provider Procedure Notes S tatus Complex e/m visit add on Chris Wood MD completed Complex e/m visit add on Chris Wood MD completed EKG Amilcar Mendez MD completed EKG Chris Wood MD completed EKG Chris Wood MD completed EKG Chris Wood MD completed CCM MD Beth Wood MD completed EKG Chris Wood MD completed Protime Chris Wood MD completed EKG Chris Wood MD completed SNOMED-CT: [id number] 936675 Current Medications Documented Chris Wood MD completed SNOMED-CT: [id number] 161708 Current Medications Documented Chris Wood MD completed BLOOD COUNT HEMOGLOBIN Chris Wood MD completed FVC - 06467 Chris Wood MD completed FRC - 48837 Chris Wood MD completed DLCO - 54886 Chris Wood MD complete d Stress EKG Barb Tang MD complet ed Regadenoson, 4 units Chris Wood MD completed Cardiolite, 2 units Chris Wood MD c ompleted SPECT Images Barb Tang MD compl eted Mobile Cardiac Telem etry - Tech Chris Wood MD completed Mobile Cardiac Telem etry - Prof Chris Wood MD completed EKG Chris Wood MD completed SNOMED-CT: [id number] 551993 Current Medications Documented Chris Wood MD completed Holter, 24 or 48 Mahin De La Rosa MD co mpleted
--- OUTSIDE RECORDS SUMMARY | 2024-11-30 12:18 | XMS_ITS | Continuity of Care Document ---
Author Organization [facility] Address [address] [place] [address] [address] [place] [address] Phone Care Team Providers Care Agricultural Chemicals Inspector Name Role Phone Griffin OD, Balbir Unavailable Unavailable Procedures Procedure Date Eye Exam, New Patient Refraction Advance Directives Directive Yes / No Effective Date File Name No Information Encounters Encounter Description Practice Location Reason(s) For Visit Diagnoses Date Provider Providers Copied on Encounter [facility], [address] [place] [address] [address], [place], [place], [id number], [place] tel:[phone] SEC [facility] No Information Sep-0 8-201 0 Griffin OD Balbir. [address] , [address], [place], [address], [place]. tel:[phone] Family History Family Member Type Diagnosis Age At Onset No Information Payers Payer name Insurance type Covered republican ID Authoriza tion(s) Medicare [facility] [id number] For Life Mdcr Supp CI [id number] Social History Type Description Quantity Date Captured [...]
--- OUTSIDE RECORDS SUMMARY | 2024-11-30 12:18 | XMS_ITS | Clinical Summary ---
Author Organization [facility] Address [address] [place] [address]. [place], [place] [id number] [place] [id number] Care Team Providers Care Cardroom Hand Name Role Phone Zach Jaramillo MD Primary Care Provider [phone] Encounters Date Type Department Care Team Description 10/06/2024 12:21 PM CHISEL WORKER - 10/06/2024 11:59 PM CHISEL WORKER Hospital Encounter [place] [address] Sudheer Winston MD Discharge Disposition: Home or Self Care (Routine Discharge) 10/06/2024 Travel 09/20/2024 8:49 AM CHISEL WORKER - 09/20/2024 11:59 PM CHISEL WORKER Hospital Encounter [facility] [address] Chris Wood MD Discharge Disposition: Home or Self Care (Routine Discharge) 09/20/2024 Travel from Last 3 Months Social History Tobacco Use Types Packs/Day Years Used Date Smoking Tobacco: Never Assessed Sex and Gender Information Value Date Recorded Sex Assigned at Not on file Legal Sex Male 8:31 AM CHISEL WORKER Gender Identity Not on file Sexual Orientation Not on file Plan of Treatment Health Maintenance Due Date Last Done Comments ASCVD LDL 1945 ASCVD Statin 1945 Annual Medicare Wellness Visit 2009 RSV Immunization or 60+ Years (1 - 1-dose 75+ series) 2019 COVID-19 Vaccine ( season) 2024 12/15/2023, 07/28/2022, 06/09/2022, Additional history exists DTaP, Tdap and Td Vaccines (3 - Td or Tdap) 09/13/2034 09/13/2024, 08/04/2017, 09/08/2002 Zoster Vaccines Completed 07/28/2022, 04/25/2022 Influenza Adult Completed 08/31/2024, 09/02, 08/02/2018, Additional history exists Pneumococcal Vaccine: 65+ Years Completed 08/31/2024, 08/29/2022, 08/04/2017, Additional history exists Meningococcal B Vaccine Aged Out No l onger eligible based on patient's age to complete this topic Meningococcal Vaccine Aged Out No twyla lidia eligible based on patient's age to complete this topic RSV Immunizations Under 20 Months Aged Out No longer eligible based on patient's age to complete this topic Procedures Procedure Name Priority Date/Time Associated Diagnosis Comments FFR HEARTFLOW CTA CORONARY POST PROCESSING Routine 10/06/2024 12:21 PM CHISEL WORKER Abnormal findings diagnostic imaging of heart and coronary circulation CTA CORONARY W SCORING Routine 09/20/2024 9:47 AM CHISEL WORKER Dyspnea on exertion from Last 3 Months Results * FFR HEARTFLOW CTA CORONARY POST PROCESSING (10/06/2024 12:21 PM CHISEL WORKER) Anatomical Region Laterality Modality NA Computed Tomogra phy Narrative 10/06/2024 2:10 PM CHISEL WORKER Table formatting from the original result was not included. FFRCT Patient Name: ??Wilfredo Espinoza Kofi : ??1945 Date of FFR: ??09-20-2024 Date of CTA: ??10-06-2024 Interpreting Deicer Repairer Pneumatic: ??SUDHEER WINSTON M.D. Indication: ??Abnormal coronary CTA History: ??79-year-old male with atrial fibrillation, coronary artery disease TECHNIQUE Computed tomography was performed along the axial plane with 0.75 mm slice thickness utilizing IV administration of Isovue 370. LEFT CIRCUMFLEX ARTERY The mid left circumflex has an FFRCT value of 0.76 with 0.19 drop from proximal left circumflex. The left circumflex is a small vessel at the location of the stenosis and FFRCT. FFR IMPRESSION Anatomical stenosis in a small vessel with lesion-specific abnormal FFRCT <=0.80. Integrate location, symptoms, and comorbidities to guide cook house laborer referral or medical therapy. Interpreting Deicer Repairer Pneumatic: ??SUDHEER WINSTON M.D. 10/06/24 us Sudheer Winston MD CT Final Resul t * CTA CORONARY W SCORING (09/20/2024 9:47 AM CHISEL WORKER) Anatomical Region Laterality Modality Chest Computed Tomogra phy, Radiographic Imaging 09/21/2024 1:40 PM CHISEL WORKER Addenda Addendum by Sudheer Winston MD on 10/03/2024 11:00 AM CHISEL WORKER Table formatting from the original result was not included. CT ANGIOGRAM (Cardiology Portion) Patient Name: ??Wilfredo Kirby : ??1945 Date of Study: ??09-20-2024 Interpreting Deicer Repairer Pneumatic: ??SUDHEER WINSTON M.D. Indication: ??Dyspnea on exertion History: ??79-year-old male with atrial fibrillation, coronary artery disease, CVA PRE PROCEDURE DATA Baseline heart rate is 71 beats per minute. ??Blood pressure is 147/99 mmHg. A 20 gauge Heplock was inserted in the right antecubital vein and flushed with a 0.9 NACL. PROCEDURE DATA Baseline heart rate is 61-75 beats per minute- atrial fibrillation ?? Medication totals: Metoprolol 0 mg IVP Nitroglycerin sublingual tab times 2 Isovue contrast total is 80 ml followed by a flush of 0.9 normal saline 50 ml POST PROCEDURE DATA Post procedure heart rate is 82 beats per minute. ??Blood pressure is 131/72 mmHg. Patient tolerated procedure well. IV access discontinued and band aide dressing applied to site. TECHNIQUE Computed tomography was performed along the axial plane with 0.75 mm slice thickness utilizing IV administration of Isovue 370. FINDINGS The coronary calcium score is 67.33. CARDIAC STRUCTURES Left Atrium: ??Severely enlarged. Left Atrial Appendage: ??Chicken wing morphology. ?? There is a left atrial appendage filling defect concerning for a thrombus. Left Ventricle: ??Cavity is normal in size. ?? Concentric left ventricular hypertrophy: ??Mild. Left ventricular ejection fraction: ??66%. Pulmonary Vein: ??Three on the right. ??Two on the left. ?? Pericardium: ??Normal thickness without significant effusion or calcium present. Cardiac Valves: ??Thickening and calcifications in the aortic valve. No thickening and calcifications in the mitral valve. There is mitral annular calcification. CORONARY ANATOMY Left Main: ??Normal. Bifurcates to form a left anterior descending and a left circumflex artery. No plaque. Left Anterior Descending Artery: ??25% stenosis at the ostium. Has a large calcified plaque. It gives off 3 diagonal branches. First diagonal: ??Patent with no evidence of plaque. Second diagonal: ?? Has a large calcific plaque at its ostium. 25-50% stenosis at the ??proximal vessel. Third diagonal: ??Small calibur vessel. Circumflex Artery: ??Anomylous off of right coronary artery. Has a retro-aortic approach. 50% stenosis at the ??mid vessel. No visualized after mid-distal section. Right Coronary Artery: ??Dominant. ??<25% stenosis at the ??mid and distal vessels. ??It terminates as a posterior descending and right posterolateral branch. Posterior descending artery: ??Large caliber vessel. ??Patent with no evidence of plaque. Right posterolateral branch: ??Large caliber vessel. ??Patent with no evidence of plaque. ADDITIONAL NON-CARDIAC STRUCTURES AND LUNGS READ BY RADIOLOGY COLLEAGUES. IMPRESSION Stenosis: Moderate stenosis of diagonal, left circumflex. Mild proximal left anterior descending, distal right coronary artery. Ejection Fraction: ??66%. Modifiers: Arrhythmia, obesity artifact. FFR recommended. Interpreting Deicer Repairer Pneumatic: ??SUDHEER WINSTON M.D. 10/02/24 Narrative 09/21/2024 1:46 PM CHISEL WORKER [address] [address] EXAMINATION: CARDIAC COMPUTED TOMOGRAPHY ANGIOGRAM, ROUTINE CORONARY CTA. LUNG OVER READ. DATE: 09/20/2024 HISTORY: ??79-year old male dyspnea on exertion. COMPARISON: None. TECHNIQUE: Multidetector computerized tomography coronary angiogram was obtained using retrospective ECG gating after the administration of 80 mL of Isovue-370 intravenous contrast at 5 mL/sec with 50 mL saline push according to coronary CTA protocol. ECG tube modulation was used to reduce the radiation exposure. A dose lowering technique was used for this procedure, which may include, but is not limited to, dose reduction technique, automated exposure control, the use of iterative reconstruction, and ALARA (As Low As Reasonably Achievable) / Image Gently techniques. Medications: Administered by cardiology service. Vital signs: Recorded by cardiology service. Procedure Complications/Allergic reactions: None. Coronary CT angiogram quality: Determined by cardiology service. FINDINGS: CORONARY ARTERY ANGIOGRAM AND OTHER CARDIAC FINDINGS: Interpreted by insurance healthcare consultant. EXTRACARDIAC FINDINGS: The visible lungs contain no suspicious lung nodule, mass, consolidation. The visualized thoracic aorta is atherosclerotic. Visualized pulmonary artery appears normal. Spondylosis. IMPRESSION: 1. Cardiac findings interpreted by insurance healthcare consultant. 2. No suspicious mass or consolidation in the visualized lungs. Ordered By: CHRIS WOOD Interpreted By: Xavier Larson MD, 09/21/2024 1:40 PM Chris Wood MD CT Edited Result - Final from Last 3 Months Insurance [id number] Advance Directives Healthcare Agents on File Name Relationship Healthcare Agent Relationshi p Communication Emelia Mccann Daughter Health Care Agent Care Teams Cardroom Hand Relationship Specialty Start Date End Date Zach Jaramillo MD [address] [id number] PCP - General INTERNAL MEDICINE 09/20/24
--- OUTSIDE RECORDS SUMMARY | 2024-11-30 12:18 | XMS_ITS | Continuity of Care Document ---
Author Name [facility] Organization [facility] Care Team Providers Care Distance Learning Administrator Name Role Phone [facility] Unavailable Unavailable Problems Combined list of problems from Department of Defense and [facility] Affairs facilities. It does not include entries that were removed or entered in error. Problem Status Onset Date Problem Type Date of Resolution Comments Source Anxiety Active Condition [facility] Anxiety Disorder NOS Active Condition [facility] Arthritis of left knee Active Condition [facility] Atrial fibrillation Active Condition [facility] Atrial Fibrillation Active Condition [facility] Benign prostatic hyperplasia Active Condition [facility] Chronic instability of left knee joint Active Condition [facility] Encounter for Therapeutic Drug Monitoring (ICD-9-CM V58.83) Active Condition [facility] Generalized Anxiety Disorder Active Condition [facility] Hearing loss Active Condition [facility] Hypercholesterolemia Active Condition [facility] Hyperlipidemia Active Condition [facility] Hypertension Active Condition [facility] Hypertension Active Condition [facility] Hypertrophy (Benign) of Prostate without Urinary obstruction Active Condition [facility] Jail (current) use of Anticoagulants (ICD-9-CM V58.61) Active Condition [facility] Medical examinations/reports status Active Condition [facility] Mood disorder Active Condition 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), complicated Active Condition [facility] Urine incontinence Active Condition [facility] Diagnosis: ICD-10-CM M13.862 Other specified arthritis, left knee Active Diagnosis [facility] Diagnosis: ICD-10-CM M25.562 Pain in left knee Active Diagnosis [facility] Diagnosis: ICD-10-CM M25.569 Pain in unspecified knee Active Diagnosis [facility] Diagnosis: ICD-10-CM N32.81 Overactive bladder Active Diagnosis [facility] Diagnosis: ICD-10-CM R32 Unspecified urinary incontinence Active Diagnosis [facility] Diagnosis: ICD-10-CM H90.3 Sensorineural hearing loss, bilateral Active Diagnosis [facility] Diagnosis: ICD-10-CM R29.6 Repeated falls Active Diagnosis [facility] Diagnosis: ICD-10-CM M25.561 Pain in right knee Active Diagnosis [facility] Diagnosis: ICD-10-CM I10 Essential (primary) hypertension Active Diagnosis [facility] Diagnosis: ICD-10-CM M23.52 Chronic instability of knee, left knee Active Diagnosis [facility] Medications Combined list of outpatient medications from Department of Defense and [facility] Affairs facilities.Medications provided include 1) outpatient medications from the last 15 months, and 2) patient-reported medications. Medication Details Route Status Patient Instructions Prescription Expires Prescription Number Last Dispense Date Ordering Provider Order Date Order Qty Source ACETAMINOPH EN (U/D) 325 MG ORAL TAB TAKE TWO TABLETS BY MOUTH EVERY 6 HOURS NEEDED CAUTION: DO NOT EXCEED 4000MG PER DAY ACETAMIN OPHEN (APAP) FROM ALL MEDS. 05/20/2024 [id number] BRIGHT BERRY 2023 30 [facility] ACETAMINOPH EN 325MG TAB TAKE TWO TABLETS BY MOUTH EVERY 6 HOURS NEEDED CAUTION: DO NOT EXCEED 4000MG PER DAY ACETAMIN OPHEN (APAP) FROM ALL MEDS. ORAL 05/20/2024 [id number] BRIGHT BERRY 2023 30 [facility] ALPRAZOLAM (ALPRAZOLAM ), 0.5MG, TABLET, ORAL, SANDOZ, 1000 ea. BOTTLE Active [id number] 2023 30 Pharmac y Data Transac tion Service Facilit y ALPRAZOLAM (ALPRAZOLAM ), 0.5MG, TABLET, ORAL, SANDOZ, 1000 ea. BOTTLE Cancele d [id number] : 2023 0 Pharmac y Data Transac tion Service Facilit y ALPRAZOLAM (ALPRAZOLAM ), 0.5MG, TABLET, ORAL, SANDOZ, 1000 ea. BOTTLE Active [id number] 2023 30 Pharmac y Data Transac tion Service Facilit y ALPRAZOLAM (ALPRAZOLAM ), 0.5MG, TABLET, ORAL, SANDOZ, 1000 ea. BOTTLE Active [id number] 2023 30 Pharmac y Data Transac tion Service Facilit y ALPRAZOLAM (ALPRAZOLAM ), 0.5MG, TABLET, ORAL, SANDOZ, 1000 ea. BOTTLE Active [id number] 2023 30 Pharmac y Data Transac tion Service Facilit y ALPRAZOLAM (ALPRAZOLAM ), 0.5MG, TABLET, ORAL, SANDOZ, 1000 ea. BOTTLE Active [id number] 2023 30 Pharmac y Data Transac tion Service Facilit y ALPRAZOLAM (ALPRAZOLAM ), 0.5MG, TABLET, ORAL, SANDOZ, 1000 ea. BOTTLE Active [id number] 2023 30 Pharmac y Data Transac tion Service Facilit y ALPRAZOLAM (ALPRAZOLAM ), 0.5MG, TABLET, ORAL, SANDOZ, 1000 ea. BOTTLE Active [id number] 2023 30 Pharmac y Data Transac tion Service Facilit y ALPRAZOLAM 0.5MG TAB TAKE ONE TABLET BY MOUTH AT BEDTIME ORAL ACTIVE CAITIE VICENTE 2018 [facility] ATORVASTATI N CA 80MG TAB TAKE ONE TABLET BY MOUTH EVERY EVENING ORAL ACTIVE CAITIE VICENTE 2018 [facility] ATORVASTATI N CALCIUM (ATORVASTAT IN CALCIUM), 80 MG, TABLET, ORAL, MYLAN, 500 ea. BOTTLE Active [id number] 2023 90 Pharmac y Data Transac tion Service Facilit y ATORVASTATI N CALCIUM (ATORVASTAT IN CALCIUM), 80 MG, TABLET, ORAL, MYLAN, 500 ea. BOTTLE Active [id number] 2023 90 Pharmac y Data Transac tion Service Facilit y CHOLECALCIF ENOCH 50MCG (2,000UNIT) TAB TAKE ONE TABLET BY MOUTH ONCE A DAY FOR VITAMIN D DEFICIEN CY ORAL ACTIVE 09/16/2025 [id number] CAITIE VICENTE N 2023 100 [facility] CITALOPRAM HBR (CITALOPRAM HYDROBROMID E), 40MG, TABLET, ORAL, TORRENT PHARMAC, 500 ea. BOTTLE Active [id number] 2023 90 Pharmac y Data Transac tion Service Facilit y CITALOPRAM HBR (CITALOPRAM HYDROBROMID E), 40MG, TABLET, ORAL, TORRENT PHARMAC, 500 ea. BOTTLE Active [id number] 2023 90 Pharmac y Data Transac tion Service Facilit y CITALOPRAM HBR (CITALOPRAM HYDROBROMID E), 40MG, TABLET, ORAL, TORRENT PHARMAC, 500 ea. BOTTLE Active [id number] 2023 90 Pharmac y Data Transac tion Service Facilit y CITALOPRAM HYDROBROMID E 40MG TAB TAKE ONE TABLET BY MOUTH EVERY MORNING ORAL ACTIVE CAITIE VICENTE N 2018 [facility] DICLOFENAC NA 1% GEL,TOP APPLY 4 GM TO AFFECTED AREA(S) FOUR TIMES A DAY FOR KNEE OSTEOART HRITIS DO NOT EXCEED MORE THAN 16 GRAMS DAILY TO ANY LOWER EXTREMIT Y JOINT. NOT MORE THAN 8 GRAMS DAILY TO ANY UPPER EXTREMIT Y JOINT. MAX 32GM/DAY OVER ALL JOINTS. (MEASURE DOSE WITH RULER ATTACHED INSIDE BOX) TOPICA L ACTIVE 12/15/2024 [id number] CAITIE VICENTE N 2023 100 [facility] Diclofenac Sodium 0.01mg/mg, Gel/Jelly, Topical APPLY 4 GM TO AFFECTED AREA(S) FOUR TIMES A DAY FOR KNEE OSTEOART HRITIS DO NOT EXCEED MORE THAN 16 GRAMS DAILY TO ANY LOWER EXTREMIT Y JOINT. NOT MORE THAN 8 GRAMS DAILY TO ANY UPPER EXTREMIT Y JOINT. Active 12/15/2024 [id number] HOMER VICENTE N 2023 100 [facility] EMPAGLIFLOZ IN 25MG TAB TAKE ONE-HALF TABLET BY MOUTH ONCE A DAY ORAL ACTIVE CINTHIACAITIE RIVERA N 2023 [facility] FUROSEMIDE 20MG TAB TAKE ONE TABLET BY MOUTH EVERY MORNING ORAL ACTIVE 09/19/2025 [id number] CINTHIACAITIE RIVERA N 2023 90 [facility] METOPROLOL TARTRATE (METOPROLOL TARTRATE), 25MG, TABLET, ORAL, MYLAN, 500 ea. BOTTLE Active [id number] 2023 180 Pharmac y Data Transac tion Service Facilit y METOPROLOL TARTRATE (METOPROLOL TARTRATE), 50MG, TABLET, ORAL, MYLAN, 1000 ea. BOTTLE Active [id number] 2023 90 Pharmac y Data Transac tion Service Facilit y METOPROLOL TARTRATE (METOPROLOL TARTRATE), 50MG, TABLET, ORAL, MYLAN, 1000 ea. BOTTLE Active [id number] 2023 90 Pharmac y Data Transac tion Service Facilit y METOPROLOL TARTRATE 50MG TAB TAKE ONE-HALF TABLET BY MOUTH TWICE A DAY ORAL ACTIVE CAITIE VICENTE N 2020 [facility] OMEPRAZOLE (omeprazole ), 20 MG, CAPSULE , ORAL, [employer] PHARMA, 1000 ea. BOTTLE Active [id number] 2023 90 Pharmac y Data Transac tion Service Facilit y OMEPRAZOLE (omeprazole ), 20 MG, CAPSULE , ORAL, [employer] PHARMA, 1000 ea. BOTTLE Active [id number] 2023 90 Pharmac y Data Transac tion Service Facilit y OMEPRAZOLE 20MG CAP,EC TAKE 1 CAPSULE BY MOUTH EVERY MORNING BEFORE A MEAL ORAL ACTIVE CAITIE VICENTEA N 2018 [facility] TERAZOSIN HCL (terazosin HCl), 5 MG, CAPSULE, ORAL, [employer], 100 ea. BOTTLE Cancele d [id number] : 2023 0 Pharmac y Data Transac tion Service Facilit y TERAZOSIN HCL (terazosin HCl), 5 MG, CAPSULE, ORAL, [employer]ET [employer], 100 ea. BOTTLE Active [id number] 2023 90 Pharmac y Data Transac tion Service Facilit y TERAZOSIN HCL (terazosin HCl), 5 MG, CAPSULE, ORAL, AVET [employer]ARMACEUT, 100 ea. BOTTLE Cancele d [id number] : 2023 0 Pharmac y Data Transac tion Service Facilit y TERAZOSIN HCL 10MG CAP TAKE 1 CAPSULE BY MOUTH AT BEDTIME ORAL ACTIVE CINTHIACAITIE FIGUEROAA N 2018 [facility] WARFARIN 5MG TAB TAKE BY MOUTH ONCE A DAY ORAL ACTIVE CAITIE VICENTE NICOLE N 2018 [facility] WARFARIN SODIUM (WARFARIN SODIUM), 10MG, TABLET, ORAL, [employer], 100 ea. BOTTLE Cancele d [id number] : 2023 0 Pharmac y Data Transac tion Service Facilit y WARFARIN SODIUM (WARFARIN SODIUM), 10MG, TABLET, ORAL, [facility] [facility] [employer], 100 ea. BOTTLE Active [id number] 2023 30 Pharmac y Data Transac tion Service Facilit y WARFARIN SODIUM (WARFARIN SODIUM), 10MG, TABLET, ORAL, [facility] [place], 100 ea. BOTTLE Active [id number] 2023 30 Pharmac y Data Transac tion Service Facilit y WARFARIN SODIUM (WARFARIN SODIUM), 10MG, TABLET, ORAL, [facility] [employer], 100 ea. BOTTLE Active [id number] 2023 30 Pharmac y Data Transac tion Service Facilit y WARFARIN SODIUM (WARFARIN SODIUM), 10MG, TABLET, ORAL, [employer] [facility] [place], 100 ea. BOTTLE Active [id number] 2023 30 Pharmac y Data Transac tion Service Facilit y Immunizations Combined list of available immunizations from the Department of Defense and Veterans Affairs facilities. Immunization Series Date Given Administered By Site Reaction Lot Number CVX Code Drug Screen Roller Status Comments Source TDAP 2023 NIGEL GARCIA RIGHT DELTO ID [id number] 115 complet ed [facility] COVID-19 (PFIZER), MRNA, LNP-S, PF, IZZY-SUCROSE, 30 MCG/0.3 ML (AGES 12+ YEARS) 1 2023 NIGEL GARCIA RIGHT DELTO ID [id number] 309 complet ed [facility] INFLUENZA, UNSPECIFIED FORMULATION 2022 88 complet ed [facility] INFLUENZA VACCINE, QUADRIVALENT, ADJUVANTED 2021 205 complet ed [facility] PNEUMOCOCCAL CONJUGATE PCV20, POLYSACCHARID E [id number] CONJUGATE, ADJUVANT, PF 2021 216 complet ed [facility] COVID-19, MRNA, LNP-S, BIVALENT BOOSTER, PF, 30 MCG/0.3 ML DOSE 1 2021 300 complet ed PFR; [id number]; 3 [facility] ZOSTER RECOMBINANT 2 2021 187 complet ed [facility] COVID-19 (MODERNA), MRNA, LNP-S, PF, 100 MCG/0.5ML DOSE OR 50 MCG/0.25ML DOSE 3 2021 207 complet ed [facility] ZOSTER RECOMBINANT 1 2021 187 complet ed [facility] COVID-19, mRNA, LNP-S, PF, 100 mcg or 50 mcg dose 2021 [facility], () Not Given COVID-19, mRNA, LNP-S, PF, 100 mcg or 50 mcg dose DoD COVID-19 (MODERNA), MRNA, LNP-S, PF, 100 MCG/0.5 ML DOSE 2 2020 207 complet ed [facility] COVID-19 (MODERNA), MRNA, LNP-S, PF, 100 MCG/0.5 ML DOSE 1 2020 207 complet ed [facility] zoster recombinant 2018 [facility], () Not Given zoster recombina nt DoD Influenza, high dose seasonal 2018 [facility], () Not Given Influenza , high dose seasonal DoD pneumococcal polysaccharid e PPV23 2018 [facility], () Not Given pneumococ sofia polysacch aride PPV23 DoD INFLUENZA, UNSPECIFIED FORMULATION 2017 88 complet ed [facility] Influenza, high dose seasonal 2016 [facility], () Not Given Influenza , high dose seasonal DoD Tdap 2016 [facility], () Not Given Tdap DoD Pneumococcal conjugate PCV 13 2016 [facility], () Not Given Pneumococ sofia conjugate PCV 13 DoD zoster live 2016 [facility], () Not Given zoster live DoD INFLUENZA, UNSPECIFIED FORMULATION 2002 88 complet ed [facility] INFLUENZA, UNSPECIFIED FORMULATION 2001 88 complet ed [facility] TD(ADULT) UNSPECIFIED FORMULATION 2001 139 complet ed [facility] Results Combined list of recent chemistry, hematology and other laboratory results from Department of Defense and Veterans Affairs, ranging from 15 months to all on record, depending upon the facility. Order Name Results Value Reference Range Date Interpretation Specimen Comments Source B12 COBALAMIN (VITAMIN B12) [MASS/VOLUM E] IN SERUM OR PLASMA 611 pg/mL 213 - 816 09/13 Specimen Type: SERUM No comment entered. Ordering Provider: JEFFRY VICENTE Report Released Date/Time: Sep 13, 2024 10:52 AM Reporting Lab: [facility] [address] [facility] [address] Performing Lab: [facility] [address] [place] [address] [facility] COMPREHEN SIVE METABOLIC PANEL CREATININE [MASS/VOLUM E] IN SERUM OR PLASMA 0.95 mg/dL 0.7 - 1.3 09/13 Specimen Type: PLASMA Comment: No hemolysis noted. Ordering Provider: JEFFRY VICENTE Report Released Date/Time: Sep 13, 2024 10:52 AM Reporting Lab: [facility] [address] [facility] [address] Performing Lab: [facility] [address] [facility] [address] [facility] COMPREHEN SIVE METABOLIC PANEL UREA NITROGEN [MASS/VOLUM E] IN SERUM OR PLASMA 20.2 mg/dL 9.0 - 25.0 09/13 Specimen Type: PLASMA Comment: No hemolysis noted. Ordering Provider: JEFFRY VICENTE Report Released Date/Time: Sep 13, 2024 10:52 AM Reporting Lab: [facility] [address] [facility] [address] Performing Lab: [facility] [address] [facility] [address] [facility] COMPREHEN SIVE METABOLIC PANEL GLUCOSE [MASS/VOLUM E] IN SERUM OR PLASMA 91 mg/dL 72 - 99 09/13 Specimen Type: PLASMA Comment: No hemolysis noted. Ordering Provider: JEFFRY VICENTE Report Released Date/Time: Sep 13, 2024 10:52 AM Reporting Lab: [facility] [address] [facility] [address] Performing Lab: [facility] [address] [facility] [address] [facility] COMPREHEN SIVE METABOLIC PANEL SODIUM [MOLES/VOLU ME] IN SERUM OR PLASMA 140 meq/L 136 - 145 09/13 Specimen Type: PLASMA Comment: No hemolysis noted. Ordering Provider: JEFFRY VICENTE Report Released Date/Time: Sep 13, 2024 10:52 AM Reporting Lab: [facility] [address] [facility] [address] Performing Lab: [facility] [address] [facility] [address] [facility] COMPREHEN SIVE METABOLIC PANEL POTASSIUM [MOLES/VOLU ME] IN SERUM OR PLASMA 4.9 meq/L 3.5 - 5 09/13 Specimen Type: PLASMA Comment: No hemolysis noted. Ordering Provider: JEFFRY VICENTE Report Released Date/Time: Sep 13, 2024 10:52 AM Reporting Lab: [facility] [address] [facility] [address] Performing Lab: [facility] [address] [facility] [address] [facility] COMPREHEN SIVE METABOLIC PANEL CHLORIDE [MOLES/VOLU ME] IN SERUM OR PLASMA 107 meq/L 98 - 107 09/13 Specimen Type: PLASMA Comment: No hemolysis noted. Ordering Provider: JEFFRY VICENTE Report Released Date/Time: Sep 13, 2024 10:52 AM Reporting Lab: [facility] [address] [facility] [address] Performing Lab: [facility] [address] [facility] [address] [facility] COMPREHEN SIVE METABOLIC PANEL CARBON DIOXIDE, TOTAL [MOLES/VOLU ME] IN SERUM OR PLASMA 23 meq/L 22 - 31 09/13 Specimen Type: PLASMA Comment: No hemolysis noted. Ordering Provider: JEFFRY VICENTE Report Released Date/Time: Sep 13, 2024 10:52 AM Reporting Lab: [facility] [address] [facility] [address] Performing Lab: [facility] [address] [facility] [address] [facility] COMPREHEN SIVE METABOLIC PANEL CALCIUM [MASS/VOLUM E] IN SERUM OR PLASMA 8.9 mg/dL 8.4 - 10.4 09/13 Specimen Type: PLASMA Comment: No hemolysis noted. Ordering Provider: JEFFRY VICENTE Report Released Date/Time: Sep 13, 2024 10:52 AM Reporting Lab: [facility] [address] [facility] [address] Performing Lab: [facility] [address] [facility] [address] [facility] COMPREHEN SIVE METABOLIC PANEL PROTEIN [MASS/VOLUM E] IN SERUM OR PLASMA 6.7 g/dL 6 - 8.6 09/13 Specimen Type: PLASMA Comment: No hemolysis noted. Ordering Provider: JEFFRY VICENTE Report Released Date/Time: Sep 13, 2024 10:52 AM Reporting Lab: [facility] [address] [facility] [address] Performing Lab: [facility] [address] [facility] [address] [facility] COMPREHEN SIVE METABOLIC PANEL ALBUMIN [MASS/VOLUM E] IN SERUM OR PLASMA 3.8 g/dL 3.4 - 5 09/13 Specimen Type: PLASMA Comment: No hemolysis noted. Ordering Provider: JEFFRY VICENTE Report Released Date/Time: Sep 13, 2024 10:52 AM Reporting Lab: [place] [address] [facility] [address] Performing Lab: [facility] [address] [facility] [phone] [place] [address] COMPREHEN SIVE METABOLIC PANEL BILIRUBIN.T OTAL [MASS/VOLUM E] IN SERUM OR PLASMA 1.0 mg/dL 0.2 - 1.2 09/13 Specimen Type: PLASMA Comment: No hemolysis noted. Ordering Provider: JEFFRY VICENTE Report Released Date/Time: Sep 13, 2024 10:52 AM Reporting Lab: [facility] [address] [facility] [address] Performing Lab: [facility] [address] [facility] [address] [facility] COMPREHEN SIVE METABOLIC PANEL ALKALINE PHOSPHATASE [ENZYMATIC ACTIVITY/VO LUME] IN SERUM OR PLASMA 85 U/L 40 - 150 09/13 Specimen Type: PLASMA Comment: No hemolysis noted. Ordering Provider: JEFFRY VICENTE Report Released Date/Time: Sep 13, 2024 10:52 AM Reporting Lab: [facility] [address] [facility] [address] Performing Lab: [facility] [address] [facility] [address] [facility] COMPREHEN SIVE METABOLIC PANEL ASPARTATE AMINOTRANSF ERASE [ENZYMATIC ACTIVITY/VO LUME] IN SERUM OR PLASMA 19 U/L 5 - 34 09/13 Specimen Type: PLASMA Comment: No hemolysis noted. Ordering Provider: JEFFRY VICENTE Report Released Date/Time: Sep 13, 2024 10:52 AM Reporting Lab: [facility] [address] [place] [address] Performing Lab: [facility] [address] [facility] [address] [facility] COMPREHEN SIVE METABOLIC PANEL ALANINE AMINOTRANSF ERASE [ENZYMATIC ACTIVITY/VO LUME] IN SERUM OR PLASMA 14 U/L 8 - 40 09/13 Specimen Type: PLASMA Comment: No hemolysis noted. Ordering Provider: JEFFRY VICENTE Report Released Date/Time: Sep 13, 2024 10:52 AM Reporting Lab: [facility] [address] [place] [phone] Performing Lab: [address] [phone] [place] [address] COMPREHEN SIVE METABOLIC PANEL GLOMERULAR FILTRATION RATE/1.73 SQ M.PREDICTED [VOLUME RATE/AREA] IN SERUM, PLASMA OR BLOOD BY CREATININE- BASED FORMULA (CKD-EPI 2020) 80.9 60 09/13 Specimen Type: PLASMA Comment: No hemolysis noted. Ordering Provider: JEFFRY VICENTE Report Released Date/Time: Sep 13, 2024 10:52 AM Reporting Lab: [facility] [address] [facility] [place] [address] Performing Lab: [facility] [address] [place] [address] [phone] [place] [address] HGA1C HEMOGLOBIN A1C/HEMOGLO BIN.TOTAL IN BLOOD 5.4 4.0 - 6.0 09/13 Specimen Type: BLOOD No comment entered. Ordering Provider: JEFFRY VICENTE Report Released Date/Time: Sep 13, 2024 10:52 AM Reporting Lab: [facility] [address] [facility] [address] Performing Lab: [facility] [address] [place] [phone] [facility] LIPID PANEL (STL) CHOLESTEROL [MASS/VOLUM E] IN SERUM OR PLASMA 140 mg/dL 0 - 200 09/13 Specimen Type: PLASMA Comment: No hemolysis noted. Ordering Provider: JEFFRY VICENTE Report Released Date/Time: Sep 13, 2024 11:00 AM Reporting Lab: [facility] [address] [facility] [place] [address] Performing Lab: [facility] [address] [place] [phone] [facility] LIPID PANEL (STL) TRIGLYCERID E [MASS/VOLUM E] IN SERUM OR PLASMA 132 mg/dL 0 - 150 09/13 Specimen Type: PLASMA Comment: No hemolysis noted. Ordering Provider: JEFFRY VICENTE Report Released Date/Time: Sep 13, 2024 11:00 AM Reporting Lab: [address] [address] Performing Lab: [address] [phone] [place] [address] LIPID PANEL (STL) CHOLESTEROL IN LDL [MASS/VOLUM E] IN SERUM OR PLASMA BY CALCULATION 79 mg/dL 09/13 Specimen Type: PLASMA Comment: No hemolysis noted. Ordering Provider: JEFFRY VICENTE Report Released Date/Time: Sep 13, 2024 11:00 AM Reporting Lab: [address] [address] Performing Lab: [phone] [place] [address] LIPID PANEL (STL) CHOLESTEROL IN HDL [MASS/VOLUM E] IN SERUM OR PLASMA 35 mg/dL 40 09/13 L Specimen Type: PLASMA Comment: No hemolysis noted. Ordering Provider: JEFFRY VICENTE Report Released Date/Time: Sep 13, 2024 11:00 AM Reporting Lab: [address] [address] Performing Lab: [address] [address] [facility] MICRAL/CR EAT PROFILE (STL) ALBUMIN [MASS/VOLUM E] IN URINE 10.4 mg/L 09/13 Specimen Type: URINE No comment entered. Ordering Provider: JEFFRY VICENTE Report Released Date/Time: Sep 13, 2024 10:52 AM Reporting Lab: [facility] [address] [facility] [place] [address] Performing Lab: [address] [address] [facility] MICRAL/CR EAT PROFILE (STL) ALBUMIN/CRE ATININE [MASS RATIO] IN URINE 11 mg/g 0 - 29 09/13 Specimen Type: URINE No comment entered. Ordering Provider: JEFFRY VICENTE Report Released Date/Time: Sep 13, 2024 10:52 AM Reporting Lab: [facility] [address] [place] [phone] Performing Lab: [address] [phone] [place] [address] MICRAL/CR EAT PROFILE (STL) CREATININE [MASS/VOLUM E] IN URINE 98.6 mg/dL 63 - 166 09/13 Specimen Type: URINE No comment entered. Ordering Provider: JEFFRY VICENTE Report Released Date/Time: Sep 13, 2024 10:52 AM Reporting Lab: [facility] [address] [place] [phone] Performing Lab: [id number] [place] [address] URINALYSI S (STL-PB) COLOR OF URINE Light- Yellow 09/13 Specimen Type: URINE No comment entered. Ordering Provider: JEFFRY VICENTE Report Released Date/Time: Sep 13, 2024 10:52 AM Reporting Lab: [address] [phone] Performing Lab: [address] [phone] [facility] URINALYSI S (STL-PB) BILIRUBIN.T OTAL [PRESENCE] IN URINE BY TEST STRIP Negati vemg/d L 09/13 Specimen Type: URINE No comment entered. Ordering Provider: JEFFRY VICENTE Report Released Date/Time: Sep 13, 2024 10:52 AM Reporting Lab: [facility] [address] [facility] [place] [address] Performing Lab: [facility] [address] [place] [phone] [facility] URINALYSI S (STL-PB) PH OF URINE BY TEST STRIP 6.0 5.0 - 8.0 09/13 Specimen Type: URINE No comment entered. Ordering Provider: JEFFRY VICENTE Report Released Date/Time: Sep 13, 2024 10:52 AM Reporting Lab: [address] [address] Performing Lab: [address] [address] [facility] URINALYSI S (STL-PB) LEUKOCYTES [#/AREA] IN URINE SEDIMENT BY MICROSCOPY HIGH POWER FIELD 1 /[HPF] 0 - 5 09/13 Specimen Type: URINE No comment entered. Ordering Provider: JEFFRY VICENTE Report Released Date/Time: Sep 13, 2024 10:52 AM Reporting Lab: [facility] [address] [facility] [place] [address] Performing Lab: [address] [address] [facility] URINALYSI S (STL-PB) ERYTHROCYTE S [#/VOLUME] IN URINE SEDIMENT BY MICROSCOPY HIGH POWER FIELD 2 /[HPF] 0 - 5 09/13 Specimen Type: URINE No comment entered. Ordering Provider: JEFFRY VICENTE Report Released Date/Time: Sep 13, 2024 10:52 AM Reporting Lab: [facility] [address] [facility] [place] [address] Performing Lab: [address] [address] [facility] URINALYSI S (STL-PB) APPEARANCE OF URINE Clear 09/13 Specimen Type: URINE No comment entered. Ordering Provider: JEFFRY VICENTE Report Released Date/Time: Sep 13, 2024 10:52 AM Reporting Lab: [facility] [address] [facility] [place] [address] Performing Lab: [facility] [address] [place] [phone] [facility] URINALYSI S (STL-PB) NITRITE [PRESENCE] IN URINE BY TEST STRIP Negati vemg/d L 09/13 Specimen Type: URINE No comment entered. Ordering Provider: JEFFRY VICENTE Report Released Date/Time: Sep 13, 2024 10:52 AM Reporting Lab: [address] [address] Performing Lab: [address] [address] [facility] URINALYSI S (STL-PB) EPITHELIAL CELLS [#/AREA] IN URINE SEDIMENT BY MICROSCOPY LOW POWER FIELD <1/[HP F] 0 - 5 09/13 Specimen Type: URINE No comment entered. Ordering Provider: JEFFRY VICENTE Report Released Date/Time: Sep 13, 2024 10:52 AM Reporting Lab: [facility] [address] [facility] [place] [address] Performing Lab: [address] [address] [facility] URINALYSI S (STL-PB) GLUCOSE [MASS/VOLUM E] IN URINE BY TEST STRIP >mg/dL 09/13 H Specimen Type: URINE No comment entered. Ordering Provider: JEFFRY VICENTE Report Released Date/Time: Sep 13, 2024 10:52 AM Reporting Lab: [facility] [address] [facility] [place] [address] Performing Lab: [facility] [address] [place] [phone] [facility] URINALYSI S (STL-PB) PROTEIN [MASS/VOLUM E] IN URINE BY TEST STRIP 20 mg/dL 09/13 H Specimen Type: URINE No comment entered. Ordering Provider: JEFFRY VICENTE Report Released Date/Time: Sep 13, 2024 10:52 AM Reporting Lab: [facility] [address] [place] [phone] Performing Lab: [facility] [address] [place] [phone] [place] [address] URINALYSI S (STL-PB) URN.UROBILI NOGEN Normal mg/dL 09/13 Specimen Type: URINE No comment entered. Ordering Provider: JEFFRY VICENTE Report Released Date/Time: Sep 13, 2024 10:52 AM Reporting Lab: [address] [address] Performing Lab: [phone] [place] [address] URINALYSI S (STL-PB) HEMOGLOBIN [MASS/VOLUM E] IN URINE BY TEST STRIP Negati vemg/d L 09/13 Specimen Type: URINE No comment entered. Ordering Provider: JEFFRY VICENTE Report Released Date/Time: Sep 13, 2024 10:52 AM Reporting Lab: [facility] [address] [place] [phone] Performing Lab: [address] [phone] [place] [address] URINALYSI S (STL-PB) KETONES [MASS/VOLUM E] IN URINE BY TEST STRIP Negati vemg/d L 09/13 Specimen Type: URINE No comment entered. Ordering Provider: JEFFRY VICENTE Report Released Date/Time: Sep 13, 2024 10:52 AM Reporting Lab: [facility] [address] [place] [phone] Performing Lab: [address] [address] [facility] URINALYSI S (STL-PB) URN.LEUK.ES T. Negati vemg/d L 09/13 Specimen Type: URINE No comment entered. Ordering Provider: JEFFRY VICENTE Report Released Date/Time: Sep 13, 2024 10:52 AM Reporting Lab: [facility] [address] [facility] [place] [address] Performing Lab: [facility] [address] [place] [phone] [facility] URINALYSI S (STL-PB) SPECIFIC GRAVITY OF URINE 1.025 09/13 Specimen Type: URINE No comment entered. Ordering Provider: JEFFRY VICENTE Report Released Date/Time: Sep 13, 2024 10:52 AM Reporting Lab: [facility] [address] [place] [phone] Performing Lab: [address] [address] [facility] VITAMIN D, 25-HYDROX Y 25-HYDROXYV ITAMIN D3 [MASS/VOLUM E] IN SERUM OR PLASMA 25.4 ng/mL 30 - 96 09/13 L Specimen Type: SERUM No comment entered. Ordering Provider: JEFFRY VICENTE Report Released Date/Time: Sep 13, 2024 10:52 AM Reporting Lab: [facility] [address] [facility] [place] [address] Performing Lab: [facility] [address] [place] [phone] [facility] COMPREHEN SIVE METABOLIC PANEL CREATININE [MASS/VOLUM E] IN SERUM OR PLASMA 1.03 mg/dL 0.7 - 1.3 12/25 Specimen Type: PLASMA Comment: No hemolysis noted. Ordering Provider: JEFFRY VICENTE Report Released Date/Time: Dec 15, 2023 03:31 PM Reporting Lab: [facility] [address] [facility] [place] [address] Performing Lab: [facility] [address] [place] [phone] [facility] COMPREHEN SIVE METABOLIC PANEL UREA NITROGEN [MASS/VOLUM E] IN SERUM OR PLASMA 12.2 mg/dL 9.0 - 25.0 12/25 Specimen Type: PLASMA Comment: No hemolysis noted. Ordering Provider: JEFFRY VICENTE Report Released Date/Time: Dec 15, 2023 03:31 PM Reporting Lab: [facility] [address] [facility] [address] Performing Lab: [facility] [address] [facility] [address] [facility] COMPREHEN SIVE METABOLIC PANEL GLUCOSE [MASS/VOLUM E] IN SERUM OR PLASMA 117 mg/dL 72 - 99 12/25 H Specimen Type: PLASMA Comment: No hemolysis noted. Ordering Provider: JEFFRY VICENTE Report Released Date/Time: Dec 15, 2023 03:31 PM Reporting Lab: [facility] [address] [facility] [address] Performing Lab: [facility] [address] [facility] [address] [facility] COMPREHEN SIVE METABOLIC PANEL SODIUM [MOLES/VOLU ME] IN SERUM OR PLASMA 139 meq/L 136 - 145 12/25 Specimen Type: PLASMA Comment: No hemolysis noted. Ordering Provider: JEFFRY VICENTE Report Released Date/Time: Dec 15, 2023 03:31 PM Reporting Lab: [facility] [address] [facility] [address] Performing Lab: [facility] [address] [facility] [address] [facility] COMPREHEN SIVE METABOLIC PANEL POTASSIUM [MOLES/VOLU ME] IN SERUM OR PLASMA 4.0 meq/L 3.5 - 5 12/25 Specimen Type: PLASMA Comment: No hemolysis noted. Ordering Provider: JEFFRY VICENTE Report Released Date/Time: Dec 15, 2023 03:31 PM Reporting Lab: [facility] [address] [facility] [address] Performing Lab: [facility] [address] [facility] [address] [facility] COMPREHEN SIVE METABOLIC PANEL CHLORIDE [MOLES/VOLU ME] IN SERUM OR PLASMA 103 meq/L 98 - 107 12/25 Specimen Type: PLASMA Comment: No hemolysis noted. Ordering Provider: JEFFRY VICENTE Report Released Date/Time: Dec 15, 2023 03:31 PM Reporting Lab: [facility] [address] [facility] [place] [address] Performing Lab: [facility] [address] [facility] [place] [address] [facility] COMPREHEN SIVE METABOLIC PANEL CARBON DIOXIDE, TOTAL [MOLES/VOLU ME] IN SERUM OR PLASMA 30 meq/L 22 - 12/25 Specimen Type: PLASMA Comment: No hemolysis noted. Ordering Provider: JEFFRY VICENTE Report Released Date/Time: Dec 15, 2023 03:31 PM Reporting Lab: [facility] [address] [place] [phone] Performing Lab: [facility] [address] [place] [phone] [facility] COMPREHEN SIVE METABOLIC PANEL CALCIUM [MASS/VOLUM E] IN SERUM OR PLASMA 9.0 mg/dL 8.4 - 10.4 12/25 Specimen Type: PLASMA Comment: No hemolysis noted. Ordering Provider: JEFFRY VICENTE Report Released Date/Time: Dec 15, 2023 03:31 PM Reporting Lab: [facility] [address] [facility] [address] Performing Lab: [facility] [address] [facility] [place] [address] [facility] COMPREHEN SIVE METABOLIC PANEL PROTEIN [MASS/VOLUM E] IN SERUM OR PLASMA 6.6 g/dL 6 - 8.6 12/25 Specimen Type: PLASMA Comment: No hemolysis noted. Ordering Provider: JEFFRY VICENTE Report Released Date/Time: Dec 15, 2023 03:31 PM Reporting Lab: [facility] [address] [facility] [address] Performing Lab: [facility] [address] [facility] [place] [address] [facility] COMPREHEN SIVE METABOLIC PANEL ALBUMIN [MASS/VOLUM E] IN SERUM OR PLASMA 3.9 g/dL 3.4 - 5 12/25 Specimen Type: PLASMA Comment: No hemolysis noted. Ordering Provider: JEFFRY VICENTE Report Released Date/Time: Dec 15, 2023 03:31 PM Reporting Lab: [facility] [address] [facility] [address] Performing Lab: [facility] [address] [place] [phone] [place] [address] COMPREHEN SIVE METABOLIC PANEL BILIRUBIN.T OTAL [MASS/VOLUM E] IN SERUM OR PLASMA 1.0 mg/dL 0.2 - 1.2 12/25 Specimen Type: PLASMA Comment: No hemolysis noted. Ordering Provider: JEFFRY VICENTE Report Released Date/Time: Dec 15, 2023 03:31 PM Reporting Lab: [address] [address] Performing Lab: [facility] [address] [facility] [address] [facility] COMPREHEN SIVE METABOLIC PANEL ALKALINE PHOSPHATASE [ENZYMATIC ACTIVITY/VO LUME] IN SERUM OR PLASMA 86 U/L 40 - 150 12/25 Specimen Type: PLASMA Comment: No hemolysis noted. Ordering Provider: JEFFRY VICENTE Report Released Date/Time: Dec 15, 2023 03:31 PM Reporting Lab: [address] [address] Performing Lab: [facility] [address] [facility] [address] [facility] COMPREHEN SIVE METABOLIC PANEL ASPARTATE AMINOTRANSF ERASE [ENZYMATIC ACTIVITY/VO LUME] IN SERUM OR PLASMA 18 U/L 5 - 34 12/25 Specimen Type: PLASMA Comment: No hemolysis noted. Ordering Provider: JEFFRY VICENTE Report Released Date/Time: Dec 15, 2023 03:31 PM Reporting Lab: [facility] [address] [facility] [address] Performing Lab: [facility] [address] [facility] [address] [facility] COMPREHEN SIVE METABOLIC PANEL ALANINE AMINOTRANSF ERASE [ENZYMATIC ACTIVITY/VO LUME] IN SERUM OR PLASMA 12 U/L 8 - 40 12/25 Specimen Type: PLASMA Comment: No hemolysis noted. Ordering Provider: JEFFRY VICENTE Report Released Date/Time: Dec 15, 2023 03:31 PM Reporting Lab: [facility] [address] [facility] [address] Performing Lab: [facility] [address] [facility] [phone] [place] [address] COMPREHEN SIVE METABOLIC PANEL GLOMERULAR FILTRATION RATE/1.73 SQ M.PREDICTED [VOLUME RATE/AREA] IN SERUM, PLASMA OR BLOOD BY CREATININE- BASED FORMULA (CKD-EPI 2020) 73.9 60 12/25 Specimen Type: PLASMA Comment: No hemolysis noted. Ordering Provider: JEFFRY VICENTE Report Released Date/Time: Dec 15, 2023 03:31 PM Reporting Lab: [facility] [address] [facility] [address] Performing Lab: [place] [address] [facility] [phone] [place] [address] HGA1C HEMOGLOBIN A1C/HEMOGLO BIN.TOTAL IN BLOOD 5.6 4.0 - 6.0 12/25 Specimen Type: BLOOD No comment entered. Ordering Provider: JEFFRY VICENTE Report Released Date/Time: Dec 15, 2023 03:31 PM Reporting Lab: [facility] [address] [facility] [address] Performing Lab: [facility] [address] [facility] [phone] [place] [address] LIPID PANEL (STL) CHOLESTEROL [MASS/VOLUM E] IN SERUM OR PLASMA 151 mg/dL 0 - 200 12/25 Specimen Type: PLASMA Comment: No hemolysis noted. Ordering Provider: JEFFRY VICENTE Report Released Date/Time: Dec 15, 2023 03:31 PM Reporting Lab: [facility] [address] [facility] [address] Performing Lab: [facility] [address] [facility] [address] [facility] LIPID PANEL (STL) TRIGLYCERID E [MASS/VOLUM E] IN SERUM OR PLASMA 186 mg/dL 0 - 150 12/25 H Specimen Type: PLASMA Comment: No hemolysis noted. Ordering Provider: JEFFRY VICENTE Report Released Date/Time: Dec 15, 2023 03:31 PM Reporting Lab: [facility] [address] [facility] [address] Performing Lab: [place] [address] [facility] [address] [facility] LIPID PANEL (STL) CHOLESTEROL IN LDL [MASS/VOLUM E] IN SERUM OR PLASMA BY CALCULATION 77 mg/dL 12/25 Specimen Type: PLASMA Comment: No hemolysis noted. Ordering Provider: JEFFRY VICENTE Report Released Date/Time: Dec 15, 2023 03:31 PM Reporting Lab: [facility] [address] [facility] [address] Performing Lab: [place] [address] [facility] [address] [facility] LIPID PANEL (STL) CHOLESTEROL IN HDL [MASS/VOLUM E] IN SERUM OR PLASMA 37 mg/dL 40 12/25 L Specimen Type: PLASMA Comment: No hemolysis noted. Ordering Provider: JEFFRY VICENTE Report Released Date/Time: Dec 15, 2023 03:31 PM Reporting Lab: [place] [address] [facility] [address] Performing Lab: [facility] [address] [facility] [address] [facility] Vital Signs Combined list of inpatient and outpatient Vital Signs from Department of Defense and Veterans Affairs, ranging from 12 months to all on record, depending upon the facility. Vital Sign Value Date Comments Source SYSTOLIC BLOOD PRESSURE 146 10/12/2024 11:18:14 [facility] DIASTOLIC BLOOD PRESSURE 79 10/12/2024 11:18:14 [facility] PULSE OXIMETRY 96 10/12/2024 11:18:14 [place] [facility] WEIGHT 255.8 10/12/2024 11:18:14 [facility] BMI 40kg/m2 10/12/2024 11:18:14 [facility] PAIN 0 10/12/2024 11:18:14 [facility] HEIGHT 67 10/12/2024 11:18:14 [facility] TEMPERATURE 97.6 10/12/2024 11:18:14 [facility] PULSE 92 10/12/2024 11:18:14 [facility] RESPIRATION 18 10/12/2024 11:18:[address] [facility] SYSTOLIC BLOOD PRESSURE 147 09/13/2024 10:02:48 [facility] DIASTOLIC BLOOD PRESSURE 79 09/13/2024 10:02:48 [facility] PULSE OXIMETRY 97 09/13/2024 10:02:48 [facility] WEIGHT 255.4 09/13/2024 10:02:48 [facility] BMI 39kg/m2 09/13/2024 10:02:48 [facility] PAIN 0 09/13/2024 10:02:48 [facility] HEIGHT 68 09/13/2024 10:02:48 [facility] TEMPERATURE 98 09/13/2024 10:02:48 [facility] PULSE 74 09/13/2024 10:02:48 [facility] RESPIRATION 18 09/13/2024 10:02:48 [facility] SYSTOLIC BLOOD PRESSURE 120 04/20/2024 11:13:00 [facility] DIASTOLIC BLOOD PRESSURE 88 04/20/2024 11:13:00 [facility] PAIN 4 04/20/2024 11:13:00 [facility] TEMPERATURE 98 04/20/2024 11:13:00 [facility] PULSE 98 04/20/2024 11:13:00 [facility] RESPIRATION 18 04/20/2024 11:13:00 [facility] SYSTOLIC BLOOD PRESSURE 182 12/15/2023 14:52:54 [facility] DIASTOLIC BLOOD PRESSURE 104 12/15/2023 14:52:54 [facility] PULSE OXIMETRY 94 12/15/2023 14:52:54 [facility] WEIGHT 246.2 12/15/2023 14:52:54 [facility] BMI 38kg/m2 12/15/2023 14:52:54 [facility] PAIN 5 12/15/2023 14:52:54 [facility] TEMPERATURE 98 12/15/2023 14:52:54 [facility] PULSE 94 12/15/2023 14:52:54 [facility] RESPIRATION 20 12/15/2023 14:52:54 [facility] Encounters Combined list of: 1) Encounters from Department of Veterans Affairs facilities going back up to thelas 18 months. 2) Encounters from the Department of Defense facilities going back up to 280 months. Location Location Details Encounter Type Encounter Number Reason For Visit Attending Provider ADM Date DC Date Status Disposition Source [facility] MNGMENT TRAINING [id number] Diagnos is: ICD-10- CM M23.52 Chronic instabi lity of knee, left knee
JEWELMAURI 05/29 [facility] HEARING AID FITTING/CH ECKING [id number] Diagnos is: ICD-10- CM H90.3 Sensori neural hearing loss, bilater al
VESTSU A 06/01 [facility] THERAPEUTI C EXERCISES [id number] Diagnos is: ICD-10- CM M23.52 Chronic instabi lity of knee, left knee
JEWEL,MAURI VAHE 06/04 [facility] AQUATIC THERAPY/EX ERCISES [id number] Diagnos is: ICD-10- CM M23.52 Chronic instabi lity of knee, left knee
JEWEL,MAURI VAHE 07/10 [facility] Outpatient Encounter [id number] 07/24 [facility] Outpatient Encounter [id number] 07/31 [facility] AQUATIC THERAPY/EX ERCISES [id number] Diagnos is: ICD-10- CM M23.52 Chronic instabi lity of knee, left knee
JEWEL,MAURI VAHE 08/07 [facility] AQUATIC THERAPY/EX ERCISES [id number] Diagnos is: ICD-10- CM M23.52 Chronic instabi lity of knee, left knee
JEWEL,MAURI VAHE 08/14 [facility] AQUATIC THERAPY/EX ERCISES [id number] Diagnos is: ICD-10- CM M23.52 Chronic instabi lity of knee, left knee
JEWEL,MAURI VAHE 08/21 [facility] AQUATIC THERAPY/EX ERCISES [id number] Diagnos is: ICD-10- CM M23.52 Chronic instabi lity of knee, left knee
JEWEL,MAURI VAHE 08/28 [facility] Outpatient Encounter [id number] 09/16 [facility] AQUATIC THERAPY/EX ERCISES [id number] Diagnos is: ICD-10- CM M23.52 Chronic instabi lity of knee, left knee
JEWEL,MAURI VAHE 10/09 [facility] AQUATIC THERAPY/EX ERCISES [id number] Diagnos is: ICD-10- CM M23.52 Chronic instabi lity of knee, left knee
JEWEL,MAURI VAHE 11/06 [facility] AQUATIC THERAPY/EX ERCISES [id number] [id number] Diagnos is: ICD-10- CM M23.52 Chronic instabi lity of knee, left knee
JEWEL,[facility] VAHE 11/13 [facility] HEARING AID CHECK ONE EAR [id number] [id number] Diagnos is: ICD-10- CM H90.3 Sensori neural hearing loss, bilater al
VESTSU A 11/19 [facility] AQUATIC THERAPY/EX ERCISES [id number] [id number] Diagnos is: ICD-10- CM M23.52 Chronic instabi lity of knee, left knee
JEWEL,MAURI VAHE 11/20 [facility] AQUATIC THERAPY/EX ERCISES [id number] [id number] Diagnos is: ICD-10- CM M23.52 Chronic instabi lity of knee, left knee
MAURI HOLLOWAY 11/27 [facility] HLTH BHV ASSMT/REAS SESSMENT [id number] [id number] Diagnos is: ICD-10- CM I10 Essenti al (primar y) hyperte nsion<b r/> MANSOOR ARCE 12/01 [facility] Outpatient Encounter [id number] 12/02 [facility] OFFICE O/P EST MOD 30 MIN [id number] [id number] Diagnos is: ICD-10- CM I10 Essenti al (primar y) hyperte nsion<b r/> JEFFRY VICENTE N 12/15 [facility] HEARING AID REPAIR/MOD IFYING [id number] [id number] Diagnos is: ICD-10- CM H90.3 Sensori neural hearing loss, bilater al
GISELLE MORTENSEN E 02/01 [facility] [place] [id number] [id number] Diagnos is: ICD-10- CM H90.3 Sensori neural hearing loss, bilater al
GISELLE MORTENSEN E 02/01 [facility] Outpatient Encounter [id number] 04/06 [facility] Outpatient Encounter [id number] 04/11 [facility] Outpatient Encounter [id number] 04/15 [facility] Outpatient Encounter [id number] [id number] Diagnos is: ICD-10- CM M25.561 Pain in right knee
NOHEMY LOVE S 04/16 [facility] EMERGENCY DEPT VISIT MOD MDM [id number] [id number] Diagnos is: ICD-10- CM R29.6 Repeate d falls<b r/> Radha BERRY NNA M 04/20 [facility] Outpatient Encounter [id number] Radha BERRY NNA M 04/20 [facility] Outpatient Encounter [id number] 04/22 [facility] Outpatient Encounter [id number] 05/30 [facility] HEARING AID FITTING/CH ECKING [id number] [id number] Diagnos is: ICD-10- CM H90.3 Sensori neural hearing loss, bilater al
TIGRE REYEZ 06/15 [facility] Outpatient Encounter [id number] SARAH PATINO L 09/05 [facility] OFFICE O/P EST MOD 30 MIN [id number] [id number] Diagnos is: ICD-10- CM R32 Unspeci fied urinary inconti nence<b r/> JEFFRY VICENTE N 09/13 [facility] Outpatient Encounter [id number] 09/14 [facility] Outpatient Encounter [id number] 09/14 [facility] Outpatient Encounter [id number] [id number] 09/14 [facility] Outpatient Encounter [id number] [id number] 09/15 [facility] OFFICE O/P NEW LOW 30 MIN [id number] [id number] Diagnos is: ICD-10- CM N32.81 Overact jovan bladder
RISSA MORGAN MA E 10/12 [facility] THERAPEUTI C EXERCISES [id number] [id number] Diagnos is: ICD-10- CM M25.569 Pain in unspeci fied knee
AD,BR EANNA 10/14 [facility] Outpatient Encounter [id number] 10/15 [facility] Outpatient Encounter [id number] [id number] 10/18 [facility] THERAPEUTI C EXERCISES 89858-3.65 [id number] Diagnos is: ICD-10- CM M25.562 Pain in left knee
AD,BR EANNA 11/03 [facility] Outpatient Encounter [id number] 11/09 [facility] SYNCH AUDIO-VIDE O EST SF 10 [id number] [id number] Diagnos is: ICD-10- CM M13.862 Other specifi ed arthrit is, left knee
JEFFRY VICENTEA N 11/14 [facility] Outpatient Encounter [id number] [id number] 11/14 [facility] Social History Combined list of available smoking, tobacco, and other social history from [employer] and [facility] Affairs facilities. Social History Type Response Date Comment Sourc e Tobacco smoking status NHIS [employer] FORMER USER 12/15/2023 [facility] [facility] History of tobacco use CO-TOBACCO QUIT 15 YRS OR MORE 12/15/2023 [facility] History of tobacco use CO-TOBACCO FORMER USER 04/25/2022 [facility] History of tobacco use CO-TOBACCO QUIT 15 YRS OR MORE 04/09/2021 [facility] History of tobacco use CO-TOBACCO QUIT 15 YRS OR MORE 03/22/2020 [facility] History of tobacco use CO-TOBACCO FORMER USER 10/12/2018 [facility] History of tobacco use CURRENT NON-TOBACCO USER-HX OF USE 03/17/2005 [facility] History of tobacco use CURRENT NON-TOBACCO USER-HX OF USE 06/24/2004 [facility] History of tobacco use CURRENT NON-TOBACCO USER-HX OF USE 09/18/2003 stopped 1967 [facility] History of tobacco use CURRENT NON-TOBACCO USER-HX OF USE 11/14/2002 [facility] This section is an empty social history section. [facility] Plan of Care List of future care [facility]. Additional future care activities may be listed in the Assessment and Plan section. Date/Time Care Activity Care Activity Detail Facili ty 01/18/2025 AMBULATORY - SURGERY AMBULATORY - SURGERY [facility] 11/14/2024 Laboratory - Auto Headlight Mechanic ry Order VITAMIN D, 25-HYDROXY GOLD/RED SST SERUM SP [facility]
[2025-01-13 11:18] LABS: INR 2.4; Prothrombin Time 26.7 Seconds (11.1-14.7)
== END 2025-02-28 23:59 | disposition home or self-care (01) ==
LOC: ANHLAB 10:07
PROVIDERS: PCP Internal Medicine; Visit Provider Internal Medicine
DX: Z51.81 Encounter for therapeutic drug level monitoring (principal); Z79.01 Long term (current) use of anticoagulants
CPT/HCPCS: 36415; 85610

== ENCOUNTER 2025-04-24 09:27 | Outpatient (RCR) | payer MEDICARE, OTHER, SELFPAY ==
[2025-03-20 11:39] LABS: INR 2.5; Prothrombin Time 27.9 Seconds (11.1-14.7)
[2025-04-24 10:02] LABS: INR 2.4; Prothrombin Time 25.5 Seconds (11.1-14.7)
== END 2025-06-15 10:15 | disposition home or self-care (01) ==
LOC: ANHLAB 09:27
PROVIDERS: PCP Internal Medicine; Visit Provider Internal Medicine
DX: Z51.81 Encounter for therapeutic drug level monitoring (principal); Z79.01 Long term (current) use of anticoagulants
CPT/HCPCS: 36415; 85610

== ENCOUNTER 2025-04-28 09:41 | Outpatient (CLI) | payer MEDICARE, OTHER, SELFPAY ==
[2025-04-28 10:17] LABS: Basophils Absolute Auto 0.1 K/mm3 (0.0-0.1); Basophils Percent Auto 1.3 % (0.2-1.2); Eosinophils Absolute Auto 0.1 K/mm3 (0-0.3); Eosinophils Percent Auto 1.5 % (0-4.4); Hematocrit 38.5 % (42.0-52.0); Hemoglobin 12.9 g/dL (14.0-18.0); Immature Granulocyte Absolute 0.17 K/mm3 (0.00-0.031); Immature Granulocyte Percent A 2.5 % (0-0.5); Lymphocytes Absolute Auto 1.26 K/mm3 (0.9-3.2); Lymphocytes Percent Auto 18.8 % (18.3-44.2); Mean Corpuscular HGB Conc 33.5 g/dl (32-36); Mean Corpuscular Hemoglobin 33.1 pg (26-34); Mean Corpuscular Volume 98.7 fl (80-100); Mean Platelet Volume 9.4 fl (7.4-10.4); Monocytes Absolute Auto 0.6 K/mm3 (0.1-0.6); Monocytes Percent Auto 9.5 % (2.6-8.5); Neutrophils Absolute Auto 4.5 K/mm3 (1.3-6.7); Neutrophils Percent Auto 66.4 % (45.5-73.1); Platelet Count Result 165 k/mm3 (150-375); Red Cell Distribution Width 14.1 % (11.5-14.5); White Blood Count 6.7 K/mm3 (4.5-10.0)
[2025-04-28 10:41] LABS: Alanine Aminotransferase 21 U/L (6-50); Alkaline Phosphatase 77 U/L (38-126); Anion Gap 8 mmol/L (4-12); Aspartate Amino Transferase 28 U/L (17-59); Bilirubin,Total 0.9 mg/dL (0.2-1.3); Blood Urea Nitrogen 21 mg/dL (9-20); Calcium 8.8 mg/dL (8.4-10.2); Carbon Dioxide 27 mmol/L (22-30); Chloride 105 mmol/L (98-107); Cholesterol 150 mg/dL (0-200); Estimated Glomerular Filt Rate > 60; Glucose 98 mg/dL (65-110); HDL Direct 38 mg/dL; Potassium 4.2 mmol/L (3.4-5.0); Sodium 140 mmol/L (137-145); Triglycerides 163 mg/dL (<150)
[2025-04-28 10:52] LABS: LDL Cholesterol Direct 73 mg/dL
[2025-04-28 10:59] LABS: Free T4 Free Thyroxine 0.85 ng/dL (0.78-2.19)
[2025-04-28 11:09] LABS: Prostate Specific Antigen 0.8 ng/mL (< OR = 4.0)
[2025-04-28 11:14] LABS: Thyroid Stimulating Hormone 0.873 uIU/mL (0.465-4.680)
[2025-04-28 12:53] LABS: Hemoglobin A1C 5.6 % (<5.7)
== END 2025-04-28 09:42 | disposition home or self-care (01) ==
LOC: ANHLAB 09:45
PROVIDERS: PCP Internal Medicine; Visit Provider Internal Medicine Pulmonary Disease
DX: D50.9 Iron deficiency anemia, unspecified (principal); E78.00 Pure hypercholesterolemia, unspecified; I10 Essential (primary) hypertension; I48.91 Unspecified atrial fibrillation; K21.9 Gastro-esophageal reflux disease without esophagitis; N42.9 Disorder of prostate, unspecified
CPT/HCPCS: 36415; 80053; 80061; 82607; 82728; 83036; 83735; 84153; 84439; 84443; 85025

== ENCOUNTER 2025-06-15 09:05 | Outpatient (CLI) | payer MEDICARE, OTHER, SELFPAY ==
--- NOTE | ~2025-06-15 | US_ITS ---
US art doppler w press LE BI INDICATION: Peripheral vascular disease TECHNIQUE: Segmental pressures and plethysmographic and Doppler waveforms of the brachial and lower e xtremity arteries were obtained. COMPARISON: None. FINDINGS: Right and left brachial artery pressures of 159 mm Hg and 163 mm Hg, respectively, are concordant (no rmal difference <= 30 mmHg). There is biphasic flow bilaterally in the lower extremity arteries. The right ankle-brachial index (DIANA) is 1.21 (normal >= 0.9-1.0). The right great toe-brachial index (TBI) is 0.33 (normal >= 0.60). The left DIANA is 1.19. The left TBI is 0.56. IMPRESSION: 1. Diminished bilateral toe brachial indices consistent with peripheral arterial disease. 2: Normal bilateral ankle-brachial indices. Reviewed, dictated and finalized at location A. IMPRESSION: 1. Diminished bilateral toe brachial indices consistent with peripheral arteria l disease. 2: Normal bilateral ankle-brachial indices.
--- OUTSIDE RECORDS SUMMARY | 2025-06-15 09:16 | XMS_ITS | Encounter Summary ---
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 This section includes the names of all active insurance providers for the patient. Insurance Provider Type of Coverage Plan Name Start of Policy Coverage End of Policy Coverage Group Number Member ID Insurance Provider's Telephone Number Policy Joyce's Name Patient's Relationship to Policy Joyce MEDICARE (WNR) MEDICARE (M) PART A Aug 02, 2009 PART A [id number] [phone] EMILIA,DA JASON PATIENT MEDICARE (WNR) MEDICARE (M) PART B Aug 02, 2009 PART B [id number] EMILIA,DA JASON PATIENT MEDICARE (WNR) MEDICARE (M) PART A Aug 02, 2009 PART A [id number] EMILIA,DA JASON PATIENT MEDICARE (WNR) MEDICARE (M) PART B Aug 02, 2009 PART B [id number] EMILIA,DA JASON PATIENT Selected Encounter This section includes the information on record at [place] for the Encounter. Date/Time Encounter Type Encounter Description Reason Provider Source Sep 13, 2024 10:30 AM OFFICE O/P EST MOD 30 MIN PRIMARY CARE/MEDICINE ICD-10-CM R32 Unspecified urinary incontinence HOMER VICENTE [facility] Encounter Template Text not used by [place] Assessments - Encounter Diagnoses This section includes the primary and secondary diagnoses documented for the Encounter. Date/Time Primary/Secondary Diagnosis Diagnosis Name Provider Source Sep 13, 2024 11:00 AM PRIMARY Unspecified urinary incontinence HOMER VICENTE [facility] Sep 13, 2024 11:00 AM SECONDARY Chronic instability of knee, left knee HOMER VICENTE [facility] Sep 13, 2024 11:00 AM SECONDARY Encounter for immunization KEITH GARCIA [facility] Sep 13, 2024 11:00 AM SECONDARY Essential (primary) hypertension HOMER VICENTE [facility] Sep 13, 2024 11:00 AM SECONDARY Hyperlipidemia, unspecified HOMER VICENTE [facility] Sep 13, 2024 11:00 AM SECONDARY Nodular prostate with lower urinary tract symptoms CINTHIAHOMER Garcia [facility] Sep 13, 2024 11:00 AM SECONDARY Obesity, unspecified [facility]THIA[facility]OMER [facility] Sep 13, 2024 11:00 AM SECONDARY Unspecified [facility] Plan of Treatment: Future Appointments (+ 6 months) and Future Tests (+/- 45 days) The Plan of Treatment section includes future care activities for the patient [facility] This section includes future appointments and future orders which are active, pending or scheduled. Future Appointments This section includes appointments that were scheduled to occur 6 months from the date of the Encounter, up to a maximum of 20 appointments. The data comes from all [place] treatment facilities. Appointment Date/Time Appointment Type Appointme nt Facility Name Oct 12, 2024 11:30 AM AMBULATORY - SURGERY [facility] Oct 14, 2024 09:00 AM AMBULATORY - REHAB MEDICIN [facility] Nov 03, 2024 10:30 AM AMBULATORY - REHAB MEDICIN [facility] Nov 14, 2024 08:30 AM AMBULATORY - MEDICINE [facility] Jan 18, 2025 09:00 AM AMBULATORY - SURGERY [facility] Lab Results: +/- 30 days of the encounter This section includes the Chemistry and Hematology Lab Results on record with [place] for the patient. Radiology Reports and Pathology Reports are provided separately, in subsequent sections. Lab Results This section contains the Chemistry/Hematology Results that were resulted 30 days before or 30 daysafter the date of the Encounter. Date/Time Source Result Type Result - Unit Interpretation Reference Range Specimen Type Comment Sep 13, 2024 11:[address] [facility] HGA1C BLOOD Specimen Type: BLOOD No comment entered. Ordering Provider: HOMER VICENTE Report Released Date/Time: Sep 13, 2024 10:52 AM Reporting Lab: [facility] [address] [facility] [address] Performing Lab: [address] [address] HGA1C 5.4 4.0-6.0 Sep 13, 2024 11:[address] [facility] MICRAL/CREAT PROFILE (STL) URINE Specimen Typ e: URINE No comment entered. Ordering Provider: HOMER VICENTE Report Released Date/Time: Sep 13, 2024 10:52 AM Reporting Lab: [facility] [address] [facility] [address] Performing Lab: [facility] [address] [facility] [address] URINE ALBUMIN (PB-STL) 10.4 mg/L uACR (STL) 11 mg/g 0-29 CREATININE URINE/OTHERS 98.6 mg/dL 63-16 6 Sep 13, 2024 11:[address] [facility] VITAMIN D, 25-HYDROXY SERUM Specimen Type: SE RUM No comment entered. Ordering Provider: HOMER VICENTE Report Released Date/Time: Sep 13, 2024 10:52 AM Reporting Lab: [facility] [address] [facility] [phone] Performing Lab: [facility] [address] [place] [phone] VITAMIN D, 25-HYDROXY 25.4 ng/mL L 30-96 Sep 13, 2024 11:[address] [facility] URINALYSIS (STL-PB) URINE Specimen Type: URIN E No comment entered. Ordering Provider: HOMER VICENTE Report Released Date/Time: Sep 13, 2024 10:52 AM Reporting Lab: [facility] [address] [facility] [address] Performing Lab: [facility] [address] [facility] [phone] URINE COLOR Light-Yellow Yellow U.BILIRUBIN Negative mg/dL Negative U.PH 6.0 5.0-8.0 URINE WBC/HPF 1 /[HPF] 0-5 URINE RBC/HPF 2 /[HPF] 0-5 APPEARANCE Clear Clear U.NITRITE Negative mg/dL Negative SQUAMOUS EPITH. <1 /[HPF] 0-5 URN.GLUCOSE > mg/dL H Negative URN.PROTEIN 20 mg/dL H URN.UROBILINOGEN Normal mg/dL Normal URN.BLOOD Negative mg/dL Negative-Trace URN.KETONES Negative mg/dL Negative-Trac e URN.LEUK.EST. Negative mg/dL Negative-Tr belkis URN.SPECIFIC GRAVITY 1.025 Sep 13, 2024 11:[address] [facility] B12 SERUM Specimen Type: SERUM No comment entered. Ordering Provider: HOMER VICENTE Report Released Date/Time: Sep 13, 2024 10:52 AM Reporting Lab: [facility] [address] [facility] [address] Performing Lab: [facility] [address] [place] [phone] B12 611 pg/mL 213-816 Sep 13, 2024 11:[address] [facility] LIPID PANEL (STL) PLASMA Specimen Type: PLASM A Comment: No hemolysis noted. Ordering Provider: HOMER VICENTE Report Released Date/Time: Sep 13, 2024 11:00 AM Reporting Lab: [facility] [address] [facility] [address] Performing Lab: [facility] [address] [place] [phone] CHOLESTEROL 140 mg/dL 0-200 TRIGLYCERIDE 132 mg/dL 0-150 CALCULATED LDL 79 mg/dL HDL(New) 35 mg/dL L >40 Sep 13, 2024 11:[address] [facility] COMPREHENSIVE METABOLIC PANEL PLASMA Specimen Type: PLASMA Comment: No hemolysis noted. Ordering Provider: HOMER VICENTE Report Released Date/Time: Sep 13, 2024 10:52 AM Reporting Lab: [facility] [address] [facility] [phone] Performing Lab: [facility] [address] [facility] [phone] CREATININE 0.95 mg/dL 0.7-1.3 UREA NITROGEN 20.2 mg/dL 9.0-25.0 GLUCOSE 91 mg/dL 72-99 SODIUM 140 meq/L 136-145 POTASSIUM 4.9 meq/L 3.5-5 CHLORIDE 107 meq/L 98-107 CARBON DIOXIDE 23 meq/L 22-31 CALCIUM 8.9 mg/dL 8.4-10.4 PROTEIN 6.7 g/dL 6-8.6 ALBUMIN 3.8 g/dL 3.4-5 TOTAL BILIRUBIN 1.0 mg/dL 0.2-1.2 ALKALINE PHOSPHATASE 85 U/L 40-150 AST/SGOT 19 U/L 5-34 ALT/SGPT 14 U/L 8-40 EGFR (CKD-EPI 2020) 80.9 >60 Vital Signs: All taken on the encounter date This section contains inpatient and outpatient Vital Signs collected on the date of the Encounter. Date/Time Temperature Pulse Blood Pressure Respiratory Rate SP02 Pain Height Weight Body Mass Index Source Sep 13, 2024 10:15 AM 127/75 [facility] Sep 13, 2024 10:02 AM 98 74 147/79 18 97 0 68 255.4 39 [facility] Immunizations: All administered on the encounter date This section contains immunizations associated to the Encounter. Immunization Series Date Issued Administered By Site Reaction Lot Number CVX Code Drug Office 365 Consultant Comment(s) Source TDAP Sep 13, 2024 KEITH GARCIA RIGHT DELTO ID [id number] [facility] Social History: Smoking Status (Most current) and Tobacco Use (All prior to encounter date) This section includes the most current, and the historical, smoking and tobacco- related health factors from the [place] facility where the Encounter took place. Current Smoking Status This section includes the most current smoking, or tobacco-related health factor, from the [place] facility where the Encounter took place. Date/Time Current Smoking Status Comment Facil july Dec 15, 2023 03:00 PM VA-TOBACCO FORMER USER [facility] Tobacco Use History This section includes a history of the smoking, or tobacco-related health factors, that were collected on or before the date of the Encounter. The data comes from the [place] facility where the Encounter took place. Date/Time Smoking Status/Tobacco Use Comment F acjavon Dec 15, 2023 03:00 PM VA-TOBACCO QUIT [address] [facility] Apr 25, 2022 03:00 PM VA-TOBACCO FORMER USER [facility] Apr 25, 2022 03:00 PM VA-TOBACCO QUIT [address] [facility] Apr 09, 2021 11:00 AM VA-TOBACCO FORMER USER [facility] Apr 09, 2021 11:00 AM VA-TOBACCO QUIT [address] [facility] Oct 12, 2018 02:10 PM VA-TOBACCO FORMER USER [facility] Oct 12, 2018 02:10 PM VA-TOBACCO QUIT 15 YRS OR MORE [facility] Radiology Reports: +/- 30 days of the encounter Radiology Reports For cases when an order for radiology services may have been completed prior to the date of the Encounter, the report list includes the Radiology Reports that were completed up to 30 days before dateof the Encounter. For cases when an order for radiology services may have been completed after the date of the Encounter, the report list also includes the Radiology Reports that were completed up to30 days after date of the Encounter. The data comes from all [place] treatment facilities. Date/Time Radiology Report Provider Source Oct 12, 2024 11:57 AM KNEE,LEFT, 3 VIEWS : WILFREDO KIRBY [id number] -[phone] M Ex Date: OCT 12, 2024@11:57 Req Phys: HOMER VICENTE Pat Loc: -[facility] PACT B4 PCP (Req'g Loc) Img Loc: -MAIN RADIOLOGY SUITE Service: [address] [address] (Case [id number] COMPLETE) KNEE,LEFT, 3 VIEWS (RAD Detailed) CPT:30878 Proc Modifiers : LEFT, LATERAL, Stand AP, Ina Reason for Study: left knee instability Clinical History: left knee instability Report Status: Verified Date Reported: OCT 13, 2024 Date Verified: OCT 13, 2024 Benefit Specialist E-Sig:/ES/Alis Greer MD Report: FINDINGS: Minimal degenerative changes are present in left knee. No other significant bone or joint abnormality is demonstrated. No significant acute finding is seen. Impression: Early degenerative changes are present in left knee without significant acute findings. Primary Interpreting Staff: Alis Greer MD, Radiologist (Benefit Specialist) /QMB ALIS GREER [facility] Encounter Notes: All associated encounter notes This section contains the clinical notes associated to the Encounter. Date/Time Encounter Note(s) Provider Source Oct 14, 2024 09:12 AM PHYSICIAN LETTERS: LOCAL TITLE: TEST RESULT GENERAL LETTER STL STANDARD TITLE: PHYSICIAN LETTERS DATE OF NOTE: OCT 14, 2024@09:12 ENTRY DATE: OCT 14, 2024@09:12:38 AUTHOR: HOMER VICENTE EXP COSIGNER: URGENCY: STATUS: COMPLETED [facility] [address] [place] [address] OCT 14, 2024 WILFREDO KIRBY [address] [facility] [place], [place] [address] Dear Wilfredo Kirby, I would like to update you on your recent test results. I have reviewed your x ray L knee 10/12/24 and it shows Early arthritis changes are present in left knee. Please keep PT appointment as below. [facility]-PT 2 Consult Appt. on 10/14/24 @ 09:00 will Follow up on 11/14/24. PLAN Please continue your treatment as above and as we discussed during your visit. If you have any questions please call your returned case inspector. I look forward to seeing you at your next clinic appointment. Thank you for choosing the [facility] for your healthcare. FUTURE APPOINTMENTS: 11/14/2024 08:30 -[facility] PACT PHONE B4 PCP Sincerely, Homer Vicente MD. Staff Physcian. WILFREDO KIRBY SR, SUNITA N [facility] Sep 15, 2024 04:56 PM PHYSICIAN LETTERS: LOCAL TITLE: TEST RESULT GENERAL LETTER STL STANDARD TITLE: PHYSICIAN LETTERS DATE OF NOTE: SEP 15, 2024@16:56 ENTRY DATE: SEP 15, 2024@16:56:37 AUTHOR: HOMER VICENTE EXP COSIGNER: URGENCY: STATUS: COMPLETED [facility] [address] [place] [address] SEP 15, 2024 WILFREDO KIRBY [address] [place], [place] [address] Dear Wilfredo Kirby, I would like to update you on your recent test results. LIPID PROFILE - High cholesterol and triglycerides (lipids) are risk factors for heart disease. Your cholesterol should fall between 140 and 200, and your triglycerides levels should be less than or equal to 150. HDL is the good cholesterol and should ideally be greater than 40. LDL is the bad cholesterol and optimal levels should be less than 100 (near optimal is between 100 and 129). TRIGLYCERIDE 132 mg/dL 09/13/2024 11:05 CHOLESTEROL 140 mg/dL 09/13/2024 11:05 HDL(New) 35 L mg/dL 09/13/2024 11:05 CALCULATED LDL 79 mg/dL 09/13/2024 11:05 No DIRECT LDL EO data found These readings are within normal limits. continue atorvastatin 80 mg daily. HEMOGLOBIN A1C - Gives us information about your diabetes (sugar or glucose) control over the past 3 months. Your target is to keep your A1C below 7 %. HGA1C 5.4 % 09/13/2024 11:05 These readings are within normal limits. CHEM 7 - This is important information about the current status of your kidneys, liver, and electrolyte and acid/base balance as well as of your blood sugar and blood proteins. SODIUM 140 mEq/L 09/13/2024 11:05 POTASSIUM 4.9 mEq/L 09/13/2024 11:05 CHLORIDE 107 mEq/L 09/13/2024 11:05 UREA NITROGEN 20.2 mg/dL 09/13/2024 11:05 CREATININE 0.95 mg/dL 09/13/2024 11:05 CALCIUM 8.9 mg/dL 09/13/2024 11:05 CARBON DIOXIDE 23 mEq/L 09/13/2024 11:05 GLUCOSE 91 mg/dL 09/13/2024 11:05 EGFR (CKD-EPI 2020) 80.9 09/13/2024 11:05 These readings are within normal limits. LIVER FUNCTION PANEL - These are tests for liver function: PROTEIN 6.7 g/dL 09/13/2024 11:05 ALBUMIN 3.8 g/dL 09/13/2024 11:05 TOTAL BILIRUBIN 1.0 mg/dL 09/13/2024 11:05 ALKALINE PHOSPHATASE 85 U/L 09/13/2024 11:05 AST/SGOT 19 U/L 09/13/2024 11:05 ALT/SGPT 14 U/L 09/13/2024 11:05 These readings are within normal limits. VITAMIN D - Helps promote the proper utilization of calcium and phosphorus, thereby producing proper bone maintenance. VITAMIN D, 25-HYDROXY 25.4 L ng/mL 09/13/2024 11:05 These results are abnormal. start vitamin d 50 mcg 1 tab daily.medication with refills for 1 year mailed.It is needed for bone and muscle health and for general immunity. URINALYSIS - A urinalysis (or UA) is an array of tests performed on urine and one of the most common methods of medical diagnosis. URINALYSIS URINE COLOR Light-Yellow 09/13/2024 11:05 APPEARANCE Clear 09/13/2024 11:05 U.PH 6.0 09/13/2024 11:05 U.BILIRUBIN Negative mg/dL 09/13/2024 11:05 U.NITRITE Negative mg/dL 09/13/2024 11:05 URINE RBC/HPF 2 /HPF 09/13/2024 11:05 URINE WBC/HPF 1 /HPF 09/13/2024 11:05 SQUAMOUS EPITH. <1 /HPF 09/13/2024 11:05 These readings are within normal limits. PLAN Please continue your treatment as we discussed during your visit. If you have any questions please call your returned case inspector. I look forward to seeing you at your next clinic appointment. Thank you for choosing the [facility] for your healthcare. FUTURE APPOINTMENTS: 11/14/2024 08:30 -[facility] PACT PHONE B4 PCP Sincerely, Homer Vicente MD. Staff Andressa. WILFREDO KIRBY SR, SUNITA N [facility] Sep 13, 2024 10:16 AM PRIMARY CARE NOTE: LOCAL TITLE: PRIMARY CARE PROVIDER ESTABLISHED VISIT [facility] STANDARD TITLE: PRIMARY CARE NOTE DATE OF NOTE: SEP 13, 2024@10:16 ENTRY DATE: SEP 13, 2024@10:16:04 AUTHOR: HOMER VICENTE EXP COSIGNER: URGENCY: STATUS: COMPLETED PRIMARY CARE PROVIDER ESTABLISHED VISIT STL Has ADDENDA ESTABLISHED PATIENT RMSM-PN-UEND: REASON FOR VISIT/CHIEF COMPLAINT: vekristin is here for reg scheduled follow up of chronic medical conditions HPI: Vet c/o left knee giving out on him. States he has not fallen this year. He is using a quad cane. Vet is using a wrap around Knee brace. vet also has ORIF of Left ankle.will get x ray L knee and schedule PT consult vet is going for cardiac CT on Thursday09/20/24 he had cardiac cath 2 weeks ago.by [facility] heart and vascular decal maker, Dr. Peacock, phone [phone] will get records. 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), complicated 5) Anxiety Disorder NOS 6) Hypertrophy (Benign) of Prostate without Urinary obstruction 7) Skilled Nursing (current) use of Anticoagulants (ICD-9-CM V58.61) 8) Atrial Fibrillation 9) Encounter for Therapeutic Drug Monitoring (ICD-9-CM V58.83) 10) Atrial fibrillation 11) Hypertension 12) Hyperlipidemia 13) Benign prostatic hyperplasia 14) Mood disorder 15) Hearing loss 16) Medical examinations/reports status 17) TIA 18) Atrial fibrillation 19) Chronic instability of left knee joint 20) Obesity 21) Anxiety ALLERGIES: Patient has answered NKA ALLERGY REVIEW: Allergy list reviewed and remains current. MEDICATION RECONCILIATION: I have reviewed the patient's medication list with the patient and/or his/her care-bank boss. Handwritten corrections, additions and/or deletions were made to the list. Corrected Outpatient Medication List was provided to the patient/caregiver. Active Outpatient Medications (including Supplies): Active Outpatient Medications Status 1) DICLOFENAC NA 1% TOP GEL APPLY 4 GM TO AFFECTED ACTIVE AREA(S) FOUR TIMES A DAY FOR KNEE OSTEOARTHRITIS DO NOT EXCEED MORE THAN 16 GRAMS DAILY TO ANY LOWER EXTREMITY JOINT. NOT MORE THAN 8 GRAMS DAILY TO ANY UPPER EXTREMITY JOINT. MAX 32GM/DAY OVER ALL JOINTS. (MEASURE DOSE WITH RULER ATTACHED INSIDE BOX) Active Non-VA Medications Status 1) Non-VA ALPRAZOLAM 0.5MG TAB 0.5MG BY MOUTH AT BEDTIME ACTIVE 2) Non-VA ATORVASTATIN CALCIUM 80MG TAB 80MG BY MOUTH ACTIVE EVERY EVENING 3) Non-VA CITALOPRAM HYDROBROMIDE 40MG TAB 40MG BY MOUTH ACTIVE EVERY MORNING 4) Non-VA METOPROLOL TARTRATE 100MG TAB 50MG BY MOUTH ACTIVE TWICE A DAY 5) Non-VA OMEPRAZOLE 20MG EC CAP 20MG BY MOUTH EVERY ACTIVE MORNING BEFORE A MEAL 6) Non-VA TERAZOSIN HCL 10MG CAP 10MG BY MOUTH AT ACTIVE BEDTIME 7) Non-VA WARFARIN 5MG TAB BY MOUTH ONCE A DAY ACTIVE 8 Total Medications REVIEW OF SYSTEMS: except as in HPI above GENERAL: no fever, no weight loss HEENT: denies vertigo, no visual problems PULMONARY: denies SOB CARDIAC: denies chest pain, denies palpitations GI: no change in appetite, no nausea, no vomiting, no abd pain, no diarrhea : no nocturia, no polyuria, no dysuria, no hematuria EXT: denies pedal edema, no arthritis PHYSICAL EXAMINATION: Male General appearance: VITALS (most recent, as listed in the electronic record): B/P: 127/75 (09/13/2024 10:15) Pulse: 74 (09/13/2024 10:02) Temperature: 98 F [36.7 C] (09/13/2024 10:02) Weight: 255.4 lb [115.85 kg] (09/13/2024 10:02) Height: 68 in [172.7 cm] (09/13/2024 10:02) BMI: 38.9 Pain: 0 (09/13/2024 10:02) (0-10 scale) Please also see Exam in Assessment/ Plan note. GENERAL:cooperative,nad. HEENT:PERRL, EOMI,oropharynx moist. NECK:supple, no JVD, no lymphadenopathy, thyromegaly, no carotid bruit. CVS:RRR, no murmurs. LUNGS:CTA. ABD:soft, NT, BS + BACK:no CVA tenderness. EXT:no edema PPP. NEURO:A+O X 3 DATA REVIEW: HbA1C: HGA1C 5.6 % 12/25/2023 10:49 Lipid Panel: TRIGLYCERIDE 186 H mg/dL 12/25/2023 10:49 CHOLESTEROL 151 mg/dL 12/25/2023 10:49 HDL(New) 37 L mg/dL 12/25/2023 10:49 CALCULATED LDL 77 mg/dL 12/25/2023 10:49 CMP: SODIUM 139 mEq/L 12/25/2023 10:49 POTASSIUM 4.0 mEq/L 12/25/2023 10:49 CHLORIDE 103 mEq/L 12/25/2023 10:49 UREA NITROGEN 12.2 mg/dL 12/25/2023 10:49 CREATININE 1.03 mg/dL 12/25/2023 10:49 CALCIUM 9.0 mg/dL 12/25/2023 10:49 PROTEIN 6.6 g/dL 12/25/2023 10:49 ALBUMIN 3.9 g/dL 12/25/2023 10:49 ALKALINE PHOSPHATASE 86 U/L 12/25/2023 10:49 ALT/SGPT 12 U/L 12/25/2023 10:49 AST/SGOT 18 U/L 12/25/2023 10:49 TOTAL BILIRUBIN 1.0 mg/dL 12/25/2023 10:49 CARBON DIOXIDE 30 mEq/L 12/25/2023 10:49 GLUCOSE 117 H mg/dL 12/25/2023 10:49 EGFR (CKD-EPI 2020) 73.9 12/25/2023 10:49 CBC: No CBC EO data found PSA: No PSA EO data found TSH: No TSH (1YR) EO data found INR: No INR EO data found UA: No URINALYSIS EO data found Dilantin: ____ Digoxin: No data available for: DIGOXIN Chest x-ray: Impression for CHEST 2 VIEWS PA&LAT, 12/26/04, case [id number] NORMAL CHEST EXAMINATION. [id number] EKG: No data available for: EKG CONSULT STL EKG CONSULTS PB EKG RESULTS MA Result: Above target Follow-up Action: Data results reviewed with patient and/or caregiver. ASSESSMENT/PLAN: - Atrial Fibrillation: stable. continue metoprolol and warfarin. - L knee instability: Vet c/o left knee giving out on him. States he has not fallen this year. He is using a quad cane. Vet is using a wrap around Knee brace. vet also has ORIF of Left ankle.will get x ray L knee and schedule PT consult. will FU via phone in 2 months - SOB: Vet is seeing private decal maker Dr Peacock. shashi is going for cardiac CT on Thursday09/20/24. he had cardiac cath 2 weeks ago.by [facility] heart and vascular decal maker, Dr. Peacock, phone [phone] will get records. - Greiving; Shashi lost his of 55 years, 1 year ago and is grieving. Declines to see psychologist at this time. States he is talking to his Account Service Associate. - urine incontinence: shashi is using terazosin 10 mg at bedtime. he would like to see a urologist. ordered UA, PSa and consult. - HLD/ Hypertriglyceridemia: stable lipids. Rec to avoid etoh and carbohydrates. continue atorvastatin 80 mg daily. - Anxiety: c/o anxiety, maria luisa when he has something important going on.shashi is seeing private PCP and is on celexa and Alprazolam. these help. - left Ankle fracture: shashi broke his ankle in dec and he had surgery on 12-24-21 at [facility], and had to miss his appointment. - Obesity:recommended to work on weight loss. - TIA: was adm at [facility].Now on warfarin. monitored by private pcp. #- HTN:controlled.continue metoprolol 50 mg BID, continue terazosin 10 mg daily. - CHANTEL: uses CPAP - Anemia;stable hemoglobin since 2001 - HME quit etoh and smoking 1967 HCV is non rective 04-30-22 HIV is Non reactive 11-09-18 colonoscopy Weight: 246.6 lb [112.1 kg] (11/03/2018 Weight: 240.2 lb [109.2 kg] (06/28/2019 , BMI: 36.6 Weight: 251.2 lb [114.2 kg] (04/09/2021, BMI: 38.3 Weight: 249 lb [112.94 kg] (04/25/2022, BMI: 37.9 Weight: 249.4 lb [113.13 kg] (08/29/2022, BMI: 38.0 Weight: 249 lb [112.94 kg] (03/09/2023, BMI: 37.9 Weight: 255.4 lb [115.85 kg] (09/13/2024, BMI: 38.9 RETURN TO CLINIC: SUMMARY STATEMENT: Plan of care has been discussed with including expected therapeutic benefits and potential side effects of prescribed medication and treatments. [place] verbalizes understanding and is in agreement with the plan of care. Patient was instructed to keep all scheduled appointments and contact green house manager for any additional problems. PREVENTION & SCREENING: ALCOHOL: Clinical Reminder not due now or within a month BLOOD PRESSURE: Clinical Reminder not due now or within a month HEMOGLOBIN A1C: Clinical Reminder not due now or within a month Tdap Immunization - L,N,P,PH,U: See orders /alyssa/ Homer Vicente MD. Staff Physcian. Signed: 09/13/2024 11:00 09/15/2024 ADDENDUM STATUS: COMPLETED lipid, cmp, hgaic, micral, B12 is normal on 09/13/24 mailed results - HLD/ Hypertriglyceridemia: stable lipids. Rec to avoid etoh and carbohydrates. continue atorvastatin 80 mg daily. - Vit D deficiency: start vitamin d 50 mcg 1 tab daily.medication with refills for 1 year mailed.It is needed for bone and muscle health and for general immunity. /alyssa/ Homer Vicente MD. Staff Physcian. 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 saw [facility] on 09/15/24 - Ordered coronary CTA to evaluate course. LVEDP 35 mm Hg - Diastolic CHF: worsened. LVEDP 35 mmHg. Added jardiance and lasix will discuss regarding seeing [facility] next appointment. /alyssa/ Homer Vicente MD. Staff Physcian. Signed: 09/18/2024 20:24 10/12/2024 ADDENDUM STATUS: COMPLETED - LUTS: vet saw 10/12/24 declines meds at this time, pt instructed to f/u in approx 3 months to reassess LUTS, /alyssa/ Homer Vicente MD. Staff Physcian. Signed: 10/12/2024 14:29 10/14/2024 ADDENDUM STATUS: COMPLETED - L knee instability: Vet c/o left knee giving out on him. States he has not fallen this year. He is using a quad cane. Vet is using a wrap around Knee brace. vet also has ORIF of Left ankle. x ray L knee 10/12/24 shows Early degenerative changes are present in left knee without significant acute findings. Please keep PT appointment as below. [facility] 2 Consult Appt. on 10/14/24 @ 09:00 will Follow up on 11/14/24. mailed results. /alyssa/ Homer Vicente MD. Staff Physcian. Signed: 10/14/2024 09:12 10/15/2024 ADDENDUM STATUS: COMPLETED PEDDLER,DIGITAL mailed 10/14/24 /alyssa/ Homer Vicente MD. Staff Physcian. Signed: 10/15/2024 11:[address] [facility] Sep 13, 2024 10:10 AM NURSING NOTE: LOCAL TITLE: V15 PACT FACE TO FACE NOTE STL STANDARD TITLE: NURSING NOTE DATE OF NOTE: SEP 13, 2024@10:10 ENTRY DATE: SEP 13, 2024@10:10:21 AUTHOR: FANNY PATINO EXP COSIGNER: URGENCY: STATUS: COMPLETED V15 PACT FACE TO FACE NOTE STL Has ADDENDA Provider Visit: Patient Identifiers : Full Name Date of Reason for visit: Established Follow-Up Mode of Arrival: Assistive Device: cane Allergy Review: Patient has answered NKA Allergy list reviewed and remains current. Recent Vital Signs: Temperature: 98 F [36.7 C] (09/13/2024 10:02) Pulse: 74 (09/13/2024 10:02) Respiration: 18 (09/13/2024 10:02) B/P: 147/79 (09/13/2024 10:02) Pain: 0 (09/13/2024 10:02) Wt: 255.4 lb [115.85 kg] (09/13/2024 10:02) Ht: 68 in [172.7 cm] (09/13/2024 10:02) BMI: 38.9 POX: 97% (09/13/2024 10:02) PERSONAL HEALTH INVENTORY Notes: No data available for PHI note titles PERSONAL HEALTH INVENTORY - MAP: 03/09/2023 Personal Health Plan [place], [place], Purpose (MAP) Family 08/29/2022 Personal Health Plan [place], [place], Purpose (MAP) Family 04/09/2021 Personal Health Plan [place], [place], Purpose (MAP) family makes vet happy What matters most to you in your life right now? [place] Response: Family WHOLE HEALTH SHARED GOALS: PERSONAL HEALTH PLAN - SHARED GOALS: No data available for: Php Shared Goals SHARED GOALS maintain health Would you like to discuss any personal problem, family problem, alcohol use, drug use, or a mental or emotional illness? No [facility] ([facility]), please select appointment type: Face to face: No- Are you interested in getting this done? No Contact provided Primary Care phone number and encouraged to call if any questions or concerns. Review that after hours nurse line [phone] and emergency room are available 25/05 for patient use. Contact verbalized good understanding. Depression Screening - V: Perform PHQ-2 A PHQ-2 screen was performed. The score was 0 which is a negative screen for depression. Over the past two weeks, how often have you been bothered by the following problems? 1. Little interest or pleasure in doing things Not at all 2. Feeling down, depressed, or hopeless Not at all Frail/Elderly Screen: ADL Screen - Mosher Index of Liberty in Activities of Daily Living Bathing: (3 Points) Receives no assistance (gets in and out of tub by self, if tub is usual means of bathing) Dressing: (3 Points) Gets clothes and gets completely dressed without assistance. Toileting: (3 Points) Goes to toilet room, cleans self, and arranges clothes without assistance (may use object for support such as cane, walker, or wheelchair, and may manage own night bedpan or commode, emptying same next morning) Transferring: (3 Points) Moves in and out of bed and in and out of chair without assistance (may be using object for support, such as cane or walker) Continence: (3 Points) Controls urination and bowel movement completely by self Feeding: (3 Points) Feeds self without assistance Total Score: 18 Points 18 = High (patient independent) 6 = Low (patient very dependent) IADL Screen - Cristal Instrumental Activities of Daily Living Scale Ability to use telephone: (1 point) Operates Telephone on own initiative; looks up and dials numbers. Shopping: (1 point) Takes care of all shopping needs independently. Food preparation: (1 point) Plans, prepares, and serves adequate meals independently. Housekeeping: (1 point) Performs light daily tasks, but cannot maintain acceptable level of cleanliness. Laundry: (1 point) Launders small items, rinses socks, stockings, etc. Mode of transportation: (1 point) Travels independently on public transportation or drives own car. Responsibility for own medications: (1 point) Is responsible for taking medications in correct dosages at correct times. Ability to handle finances: (1 point) Manages financial matters independently (budgets, writes checks, pays rent and bills, goes to bank); collects and keeps track of income. Total score: 8 points 8 = High function, independent 0 = Low function, dependent Falls Screen: No falls within the past 12 months. Incontinence Screen: YES - Incontinence is a problem for this patient. Is urinary incontinence NEW for this patient? NO - Incontinence is NOT a new problem. What is the current treatment? briefs HTN Assess for Elevated BP>=140/90 - N,P,PH: Repeat blood pressure: 127/75 /es/ FANNY PATINO LPN LICENSED PRACTICAL NURSE Signed: 09/13/2024 10:15 09/13/2024 ADDENDUM STATUS: COMPLETED Td / Tdap Immunization - L,N,P,PH,U: Administered: TDAP Date Administered: Sep 13, 2024 10:30 [employer] Consultant: SANOFI PASTEUR Lot: [id number] Exp Date: Nov 01, 2025 [facility]: [phone] Admin Route/Site: INTRAMUSCULAR/RIGHT DELTOID Dosage: 0.5mL Vaccine Information Statement(s): TDAP (TETANUS, DIPHTHERIA, PERTUSSIS) VACCINE VIS Jun 07, 2021 ([facility]) Order By: Homer Vicente Administered By: Keith Garcia Vaccine Information Sheet (VIS) was given to the patient/caregiver, education regarding adverse reactions was discussed, as well as barriers to learning, if any, were acknowledged. /alyssa/ KEITH GARCIA RN,BSN NURSE MILLINERY COPYIST Signed: 09/13/2024 11:[address] [facility]
--- OUTSIDE RECORDS SUMMARY | 2025-06-15 09:16 | XMS_ITS ---
Author Name [facility] Organization [facility] Address [address] [place] [address] Care Team Providers Care Supervisor Carding Name Role Phone HOMER VICENTE Primary Care Provider Unavailabl e Insurance Providers: All historical and current Section [...] PART A Aug 02, 2009 PART A [id number] [phone] EMILIA,HERNESTO JASON PATIENT MEDICARE (WNR) MEDICARE (M) PART B Aug 02, 2009 PART B [id number] EMILIA,DA JASON PATIENT MEDICARE (WNR) MEDICARE (M) PART A Aug 02, 2009 PART A [id number] EMILIA,DA JASON PATIENT MEDICARE (WNR) MEDICARE (M) PART B Aug 02, 2009 PART B [id number] EMILIA,HERNESTO GOMEZ PATIENT Selected Encounter This section includes the information on record at MD for the Encounter. Date/Time Encounter Type Encounter Description Reason Provider Source Jun 15, 2024 10:30 AM HEARING AID FITTING/CHECKIN G AUDIOLOGY ICD-10-CM H90.3 Sensorineural hearing loss, bilateral WILLEM REYEZ Encounter Template Text not used by MD Assessments - Encounter Diagnoses This section includes the primary and secondary diagnoses documented for the Encounter. Date/Time Primary/Secondary Diagnosis Diagnosis Name Provider Source Jun 15, 2024 10:44 AM PRIMARY Sensorineural hearing loss, bilateral CHARIS SILVA [facility] Plan of Treatment: Future Appointments (+ 6 months) and Future Tests (+/- 45 days) The Plan of Treatment section includes future care activities for the patient from all [facility]. This section includes future appointments and future orders which are active, pending or scheduled. Future Appointments This section includes appointments that were scheduled to occur 6 months from the date of the Encounter, up to a maximum of 20 appointments. The data comes from all MD treatment facilities. Appointment Date/Time Appointment Type Appointme nt Facility Name Sep 13, 2024 10:30 AM AMBULATORY - MEDICINE [facility] Oct 12, 2024 11:30 AM AMBULATORY - SURGERY [facility] Oct 14, 2024 09:00 AM AMBULATORY - REHAB MEDICIN [facility] Nov 03, 2024 10:30 AM AM[facility]UL[facility]ORY - [facility] Nov 14, 2024 08:30 AM AMBULATORY - MEDICINE [facility] Social History: Smoking Status (Most current) and Tobacco Use (All prior to encounter date) This section includes the most current, and the historical, smoking and tobacco- related health factors from the MD facility where the Encounter took place. Current Smoking Status This section includes the most current smoking, or tobacco-related health factor, from the MD facility where the Encounter took place. Date/Time Current Smoking Status Comment Teresita ity March 17, 2005 09:41 AM TOBACCO TERMINATION STAGE [facility] Tobacco Use History This section includes a history of the smoking, or tobacco-related health factors, that were collected on or before the date of the Encounter. The data comes from the MD facility where the Encounter took place. Date/Time Smoking Status/Tobacco Use Comment Hung acjavon March 17, 2005 09:[address] [facility] Encounter Notes: All associated encounter notes This section contains the clinical notes associated to the Encounter. Date/Time Encounter Note(s) Provider Source Jun 15, 2024 07:30 AM AUDIOLOGY ROOF TRUSS MACHINE TENDER NOTE: LOCAL TITLE: HEARING AIDS ST STANDARD TITLE: AUDIOLOGY ROOF TRUSS MACHINE TENDER NOTE DATE OF NOTE: JUN 15, 2024@07:30 ENTRY DATE: JUN 15, 2024@07:30:38 AUTHOR: WILLEM REYEZ EXP COSIGNER: URGENCY: STATUS: COMPLETED SUBJECT: audio HEARING AID CHECK: has 05/27/19 SONOVA PHONAK SYLVIA B90-SP BTE R [id number] 05/27/19 SONOVA PHONAK SYLVIA B90-SP BTE L [id number]* Exeter came to today's appointment to receive new ear molds for hearing aids. According to previous note on 02/02/24, The current ones don't stay in place, maria luisa the Left. New ear molds were fitted and previous pair were placed in a container and given to Exeter as backups. Feedback test completed and no feedback present. Exeter reported that their left ear souinded loiuder than the right. Exeter's hearing aids were updated to match audio on 02/02/24, and then the right ear was increased globally 3 dB. Exeter reported increased sound quality and comfort. Data logging showed that from 12/01/23 hearing aids averaged 6 hours of daily use. Completed by Evgeny Little, doctoral audiology resident. The information above has been reviewed by this provider. I am in agreement with the treatment plan as outlined. /alyssa/ Dean RAMIREZ Staff Brine Purifier, Surgery Service Signed: 06/15/2024 10:48 WILLEM REYEZ [facility]
--- OUTSIDE RECORDS SUMMARY | 2025-06-15 09:16 | XMS_ITS | Continuity of Care Document ---
Author Organization [facility] Address [address] [place] [address] [address] [place] [address] Phone Care Team Providers Care Hand Trimmer Name Role Phone Griffin OD, Balbir Unavailable Unavailable Procedures Procedure Date Eye Exam, New Patient Refraction Advance Directives Directive Yes / No Effective Date File Name No Information Encounters Encounter Description Practice Location Reason(s) For Visit Diagnoses Date Provider Providers Copied on Encounter [facility], [address] [place] [address] [address], [place], [place], [id number], [place] tel:[phone] [facility] No Information Sep-0 8-201 0 Griffin OD Balbir. [address] , [address], [place], [address], [place]. tel:[phone] Family History Family Member Type Diagnosis Age At Onset No Information Payers Payer name Insurance type Covered green party ID Authoriza tion(s) Medicare [facility] [id number] For Life Mdcr Supp CI [id number] Social History Type Description Quantity Date Captured [...]
--- OUTSIDE RECORDS SUMMARY | 2025-06-15 09:16 | XMS_ITS ---
Author Name [facility] [place] [facility] [place] [facility] [place] [facility] [place] Address [address] [place] [address] Care Team Providers Care Color Print Inspector Name Role Phone HOMER VICENTE Primary Care [...] PART A Aug 02, 2009 PART A [id number] EMILIAHERNESTO JASON PATIENT MEDICARE (WNR) MEDICARE (M) PART B Aug 02, 2009 PART B [id number] EMILIA,DA JASON PATIENT MEDICARE (WNR) MEDICARE (M) PART A Aug 02, 2009 PART A [id number] EMILIA,DA JASON PATIENT MEDICARE (WNR) MEDICARE (M) PART B Aug 02, 2009 PART B [id number] [phone] EMILIAHERNESTO PATIENT Selected Encounter This section includes the information on record at [place] for the Encounter. Date/Time Encounter Type Encounter Description Reason Provider Source Oct 12, 2024 11:30 AM OFFICE O/P NEW LOW 30 MIN UROLOGY CLINIC ICD-10-CM N32.81 Overactive bladder SHELBY MORGAN [facility] Encounter Template Text not used by [place] Assessments - Encounter Diagnoses This section includes the primary and secondary diagnoses documented for the Encounter. Date/Time Primary/Secondary Diagnosis Diagnosis Name Provider Source Oct 12, 2024 02:24 PM PRIMARY Overactive bladder SHELBY MORGAN [facility] Plan of Treatment: Future Appointments (+ 6 months) and Future Tests (+/- 45 days) The Plan of Treatment section includes future care activities for the patient [facility] [place] [facility] This section includes future appointments and future orders which are active, pending or scheduled. Future Appointments This section includes appointments that were scheduled to occur 6 months from the date of the Encounter, up to a maximum of 20 appointments. The data comes from all [facility]. Appointment Date/Time Appointment Type Appointme nt Facility Name Oct 14, 2024 09:00 AM [facility] Nov 03, 2024 10:30 AM [facility]AT[facility] - [facility] Nov 14, 2024 08:30 AM AMBULATORY - MEDICINE [facility] Jan 18, 2025 09:00 AM AMBULATORY - SURG[facility] Active, Pending, and Scheduled Orders This section includes a listing of several types of active, pending, and scheduled orders, including clinic medications orders, diagnostic test orders, procedure orders and consult orders; where the start date of the order is 45 days before the date of the Encounter or 45 days after the date of theEncounter. The data comes from all [facility]. Test Date/Time Test Type Test Details Facility Name Nov 14, 2024 12:00 AM Laboratory - Chemi stry Order VITAMIN D, 25-HYDROXY GOLD/RED SST SERUM SP [facility] Lab Results: +/- 30 days of the encounter This section includes the Chemistry and Hematology Lab Results on record with [place] for the patient. Radiology Reports and Pathology Reports are provided separately, in subsequent sections. Lab Results This section contains the Chemistry/Hematology Results that were resulted 30 days before or 30 daysafter the date of the Encounter. Date/Time Source Result Type Result - Unit Interpretation Reference Range Specimen Type Comment Sep 13, 2024 11:05 AM [facility] HGA1C BLOOD Specimen Type: BLOOD No comment entered. Ordering Provider: HOMER VICENTE Report Released Date/Time: Sep 13, 2024 10:52 AM Reporting Lab: [facility] [address] [facility] [facility] [phone] Performing Lab: [facility] [address] [facility] [phone] HGA1C 5.4 4.0-6.0 Sep 13, 2024 11:05 AM [facility] MICRAL/CREAT PROFILE (STL) URINE Specimen Typ e: URINE No comment entered. Ordering Provider: HOMER VICENTE Report Released Date/Time: Sep 13, 2024 10:52 AM Reporting Lab: [facility] [address] [facility] [phone] Performing Lab: [facility] [address] [facility] [phone] URINE ALBUMIN (PB-STL) 10.4 mg/L uACR (STL) 11 mg/g 0-29 CREATININE URINE/OTHERS 98.6 mg/dL 63-16 6 Sep 13, 2024 11:05 AM [facility] VITAMIN D, 25-HYDROXY SERUM Specimen Type: SE RUM No comment entered. Ordering Provider: HOMER VICENTE Report Released Date/Time: Sep 13, 2024 10:52 AM Reporting Lab: [facility] [address] [place] [phone] Performing Lab: [facility] [address] [facility] [phone] VITAMIN D, 25-HYDROXY 25.4 ng/mL L 30-96 Sep 13, 2024 11:05 AM [facility] URINALYSIS (STL-PB) URINE Specimen Type: URIN E No comment entered. Ordering Provider: HOMER VICENTE Report Released Date/Time: Sep 13, 2024 10:52 AM Reporting Lab: [facility] [address] [phone] Performing Lab: [facility] [address] [facility] [phone] URINE COLOR Light-Yellow Yellow U.BILIRUBIN Negative mg/dL [...] GRAVITY 1.025 Sep 13, 2024 11:05 AM [facility] B12 SERUM Specimen Type: SERUM No comment entered. Ordering Provider: HOMER VICENTE Report Released Date/Time: Sep 13, 2024 10:52 AM Reporting Lab: [facility] [address] [place] [phone] Performing Lab: [address] [address] B12 611 pg/mL 213-816 Sep 13, 2024 11:05 AM [facility] LIPID PANEL (STL) PLASMA Specimen Type: PLASM A Comment: No hemolysis noted. Ordering Provider: HOMER VICENTE Report Released Date/Time: Sep 13, 2024 11:00 AM Reporting Lab: [address] [address] Performing Lab: [address] [phone] CHOLESTEROL 140 mg/dL 0-200 TRIGLYCERIDE 132 mg/dL 0-150 CALCULATED LDL 79 mg/dL HDL(New) 35 mg/dL L >40 Sep 13, 2024 11:05 AM [facility] COMPREHENSIVE METABOLIC PANEL PLASMA Specimen Type: PLASMA Comment: No hemolysis noted. Ordering Provider: HOMER VICENTE Report Released Date/Time: Sep 13, 2024 10:52 AM Reporting Lab: [facility] [address] [place] [phone] Performing Lab: [address] [facility] [address] CREATININE 0.95 mg/dL 0.7-1.3 UREA NITROGEN 20.2 [...] Pain Height Weight Body Mass Index Source Oct 12, 2024 11:18 AM 97.6 92 146/79 18 96 0 67 255.8 40 [facility] Social History: Smoking Status (Most current) and Tobacco Use (All prior to encounter date) This section includes the most current, and the historical, smoking and tobacco- related health factors from the [place] facility where the Encounter took place. Current Smoking Status This section includes the most current smoking, or tobacco-related health factor, from the [place] facility where the Encounter took place. Date/Time Current Smoking Status Comment Facil ity March 22, 2020 08:58 AM [place]-TOBACCO QUIT 15 YRS OR MORE [facility] Tobacco Use History This section includes a history of the smoking, or tobacco-related health factors, that were collected on or before the date of the Encounter. The data comes from the [place] facility where the Encounter took place. Date/Time Smoking Status/Tobacco Use Comment F acjavon March 22, 2020 08:58 AM [place]-TOBACCO QUIT 15 YRS OR MORE [facility] Radiology Reports: +/- 30 days of the [...] the Encounter. The data comes from all [place] treatment facilities. Date/Time Radiology Report Provider Source Oct 12, 2024 11:57 AM KNEE,LEFT, 3 VIEWS : LALITO NIETO [id number] -[id number] M Exm Date: OCT 12, 2024@11:57 Req Phys: HOMER VICENTE N Pat Loc: -[facility] PACT B4 PCP (Req'g Loc) Img Loc: -MAIN RADIOLOGY SUITE Service: [address] [address] (Case [id number] COMPLETE) KNEE,LEFT, 3 VIEWS (RAD Detailed) CPT:17244 Proc Modifiers : LEFT, LATERAL, Stand AP, Mogul Reason for Study: left knee instability Clinical History: left knee instability Report Status: Verified Date Reported: OCT 13, 2024 Date Verified: OCT 13, 2024 Jogger Operator E-Sig:/ES/Alis Greer MD Report: FINDINGS: Minimal degenerative changes are present in left knee. No other significant bone or joint abnormality is demonstrated. No significant acute finding is seen. Impression: Early degenerative changes are present in left knee without significant acute findings. Primary Interpreting Staff: Alis Greer MD, Radiologist (Jogger Operator) /QMB ALIS GREER [facility] Encounter Notes: All associated encounter notes This section contains the clinical notes associated to the Encounter. Date/Time Encounter Note(s) Provider Source Oct 12, 2024 11:38 AM UROLOGY CONSULT: LOCAL TITLE: UROLOGY CONSULT [facility] STANDARD TITLE: UROLOGY CONSULT DATE OF NOTE: OCT 12, 2024@11:38 ENTRY DATE: OCT 12, 2024@11:38:17 AUTHOR: SHELBY MORGAN COSIGNER: URGENCY: STATUS: COMPLETED CHIEF COMPLAINT, HPI, EXAM & DATA CC: LUTS COMPLAINTS: 79 y/o M referred per PCP for LUTS, pt states he feels pretty good, pt states he does urinate about every 30 minutes, states he doesn't wear underwear but depends now, pt states he's notice this problem for approx 1 yr, pt states it bothers him while he's watching TV, pt denies any c/o hematuria, dysuria or UTI since last visit Pt c/o: FREQUENCY URGENCY WEAK STREAM xxxx Duration: 1 yr Bother Level: mixed Previous treatments: none HISTORY/TREATMENTS. none PMH listed below and reviewed? Yes; DM, anti-coagulants (warfarin) APPEARANCE / PERFORMANCE STATUS: Pt a/o x 3, slow steady gait w/ cane noted, robust, comfortable PVR (by scan): 43 cc CREATININE 0.95 mg/dL 09/13/2024 11:05 No PSA (LAST 10 5Y) EO data found UA ABNORMALITIES: URINE COLOR Light-Yellow 09/13/2024 11:05 APPEARANCE Clear 09/13/2024 11:05 U.PH 6.0 09/13/2024 11:05 U.BILIRUBIN Negative mg/dL 09/13/2024 11:05 U.NITRITE Negative mg/dL 09/13/2024 11:05 URINE RBC/HPF 2 /HPF 09/13/2024 11:05 URINE WBC/HPF 1 /HPF 09/13/2024 11:05 SQUAMOUS EPITH. <1 /HPF 09/13/2024 11:05 ASSESSMENT (DXS AND PROBLEMS) ---- 1-LUTS - 79 y/o M referred per PCP for LUTS, pt mostly c/o urinary frequency, urgency and nocturia, discuss in detail with pt how diuretics, diabetes, diabetes meds, BPH and bladder irritants affect urination, discussed anticholinergics and poss side effects, pt states he already has dry month related to CPAP, pt does not want to make it worse, declines meds at this time, pt instructed to f/u in approx 3 months to reassess LUTS, will continue meds if still bothersome, pt verbalized understanding and agreeable w/ plan. PLAN S FOLLOW-UP (when/why): in 3 months to reassess LUTS (MORE INFORMATION) * LABS------- CREATININE 0.95 mg/dL 09/13/2024 11:05 UA URINE COLOR Light-Yellow 09/13/2024 11:05 APPEARANCE Clear 09/13/2024 11:05 U.PH 6.0 09/13/2024 11:05 U.BILIRUBIN Negative mg/dL 09/13/2024 11:05 U.NITRITE Negative mg/dL 09/13/2024 11:05 URINE RBC/HPF 2 /HPF 09/13/2024 11:05 URINE WBC/HPF 1 /HPF 09/13/2024 11:05 SQUAMOUS EPITH. 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 (ICD-9-CM V58.61) 8) Atrial Fibrillation 9) Encounter for Therapeutic Drug Monitoring (ICD-9-CM V58.83) 10) Atrial fibrillation 11) Hypertension 12) Hyperlipidemia 13) Benign prostatic hyperplasia 14) Mood disorder 15) Hearing loss 16) Medical examinations/reports status 17) TIA 18) Atrial fibrillation 19) Chronic instability of left knee joint 20) Obesity 21) Anxiety 22) Urine incontinence MEDICATIONS: Active Outpatient Medications (including Supplies): Active Outpatient Medications Status 1) CHOLECALCIF 50MCG (D3-2,000UNIT) TAB TAKE ONE TABLET ACTIVE BY MOUTH ONCE A DAY FOR VITAMIN D DEFICIENCY 2) DICLOFENAC NA 1% TOP GEL APPLY 4 GM TO AFFECTED ACTIVE AREA(S) FOUR TIMES A DAY FOR KNEE OSTEOARTHRITIS DO NOT EXCEED MORE THAN 16 GRAMS DAILY TO ANY LOWER EXTREMITY JOINT. NOT MORE THAN 8 GRAMS DAILY TO ANY UPPER EXTREMITY JOINT. MAX 32GM/DAY OVER ALL JOINTS. (MEASURE DOSE WITH RULER ATTACHED INSIDE BOX) 3) FUROSEMIDE 20MG TAB TAKE ONE TABLET BY MOUTH EVERY ACTIVE MORNING Active Non-VA Medications Status 1) Non-VA ALPRAZOLAM 0.5MG TAB 0.5MG BY MOUTH AT BEDTIME ACTIVE 2) Non-VA ATORVASTATIN CALCIUM 80MG TAB 80MG BY MOUTH ACTIVE EVERY EVENING 3) Non-VA CITALOPRAM HYDROBROMIDE 40MG TAB 40MG BY MOUTH ACTIVE EVERY MORNING 4) Non-VA EMPAGLIFLOZIN 25MG TAB 12.5MG BY MOUTH ONCE A ACTIVE DAY 5) Non-VA METOPROLOL TARTRATE 50MG TAB 25MG BY MOUTH ACTIVE TWICE A DAY 6) Non-VA OMEPRAZOLE 20MG EC CAP 20MG BY MOUTH EVERY ACTIVE MORNING BEFORE A MEAL 7) Non-VA TERAZOSIN HCL 10MG CAP 10MG BY MOUTH AT ACTIVE BEDTIME 8) Non-VA WARFARIN 5MG TAB BY MOUTH ONCE A DAY ACTIVE 11 Total Medications /alyssa/ SHELBY MORGAN, VALERIA-JACQUELINE, MSN, RN Nurse Practitioner, Urology Signed: 10/12/2024 14:24 Receipt Acknowledged By: 10/12/2024 14:33 /es/ CLEMENT KENNEY MD Staff Physician, Urology SHELBY MORGAN [facility]
--- OUTSIDE RECORDS SUMMARY | 2025-06-15 09:16 | XMS_ITS | Encounter Summary ---
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 Date/Time Encounter Type Encounter Description Reason Provider Source Jun 13, 2025 10:30 AM OFFICE O/P EST MOD 30 MIN PRIMARY CARE/MEDICINE ICD-10-CM I10 Essential (primary) hypertension HOMER VICENTE Rubens Encounter Template Text not used by [place] Assessments - Encounter Diagnoses This section includes the primary and secondary diagnoses documented for the Encounter. Date/Time Primary/Secondary Diagnosis Diagnosis Name Provider Source Jun 13, 2025 11:12 AM PRIMARY Essential (primary) hypertension CINTHIA,HOMER [facility] Jun 13, 2025 11:12 AM SECONDARY Chronic combined systolic and diastolic hrt fail CINTHIA,HOMER [facility] Jun 13, 2025 11:12 AM SECONDARY Coronary atherosclerosis due to lipid rich plaque CINTHIA,[facility] Jun 13, 2025 11:12 AM SECONDARY Hyperlipidemia, unspecified CINTHIA,[facility] Jun 13, 2025 11:12 AM SECONDARY Obesity, unspecified CINTHIA,[facility] Jun 13, 2025 11:12 AM SECONDARY Other specified arthritis, left knee CINTHIA,[facility] Jun 13, 2025 11:12 AM SECONDARY Transient cerebral ischemic attack, unspecified CINTHIA,[facility] Jun 13, 2025 11:12 AM SECONDARY Unspecified atrial [facility] Plan of Treatment: Future Appointments (+ 6 months) and Future Tests (+/- 45 days) The Plan of Treatment section includes future care activities for the patient from all [place] treatmentfacilities. This section includes future appointments and future orders which are active, pending or scheduled. Future Appointments This section includes appointments that were scheduled to occur 6 months from the date of the Encounter, up to a maximum of 20 appointments. The data comes from all [place] treatment facilities. Appointment Date/Time Appointment Type Appointme nt Facility Name Jul 20, 2025 10:30 AM AMBULATORY - SURGERY [facility] Dec 12, 2025 02:00 PM AMBULATORY - MEDICINE [facility] Lab Results: +/- 30 days of the encounter This section includes the Chemistry and Hematology Lab Results on record with [place] for the patient. Radiology Reports and Pathology Reports are provided separately, in subsequent sections. Lab Results This section contains the Chemistry/Hematology Results that were resulted 30 days before or 30 daysafter the date of the Encounter. Date/Time Source Result Type Result - Unit Interpretation Reference Range Specimen Type Comment Jun 05, 2025 10:00 AM [facility] VITAMIN D, 25-HYDROXY SERUM Specimen Type: SERUM No comment entered. Ordering Provider: HOMER VICENTE Report Released Date/Time: Jun 05, 2025 09:49 AM Reporting Lab: [facility] [address] [facility] [address] Performing Lab: [place] [address] [facility] [address] VITAMIN D, 25-HYDROXY 38.0 ng/mL 30-96 Jun 05, 2025 10:00 AM [facility] MICRAL/CREAT PROFILE (STL) URINE Specimen Typ e: URINE Comment: uALB/CREAT Ratio Unable to be calculated Unable to calculate due to Microalbumin < 5.0 mg/L Ordering Provider: HOMER VICENTE Report Released Date/Time: Jun 05, 2025 09:49 AM Reporting Lab: [place] [address] [facility] [address] Performing Lab: [place] [address] [facility] [address] URINE ALBUMIN (PB-STL) <5.0 mg/L uACR (STL) comment mg/g 0-29 CREATININE URINE/OTHERS 61.8 mg/dL L 63-16 6 Jun 05, 2025 10:00 AM [facility] HGA1C BLOOD Specimen Type: BLOOD No comment entered. Ordering Provider: HOMER VICENTE Report Released Date/Time: Jun 05, 2025 09:49 AM Reporting Lab: [facility] [address] Performing Lab: [place] [address] [facility] [address] HGA1C 5.6 4.0-6.0 Jun 05, 2025 10:00 AM [facility] LIPID PANEL (STL) PLASMA Specimen Type: PLASM A Comment: No hemolysis noted. Ordering Provider: HOMER VICENTE Report Released Date/Time: Jun 05, 2025 09:49 AM Reporting Lab: [facility] [address] [facility] [address] Performing Lab: [facility] [address] [facility] [address] CHOLESTEROL 157 mg/dL 0-200 TRIGLYCERIDE 166 mg/dL H 0-150 CALCULATED LDL 84 mg/dL HDL(New) 40 mg/dL >40 Jun 05, 2025 10:00 AM [facility] TSH (MA-PB) SERUM Specimen Type: SERUM No comment entered. Ordering Provider: HOMER VICENTE Report Released Date/Time: Jun 05, 2025 09:49 AM Reporting Lab: [facility] [address] [facility] [address] Performing Lab: [address] [address] TSH 0.892 u[IU]/mL 0.47-5 Jun 05, 2025 10:00 AM [facility] COMPREHENSIVE METABOLIC PANEL PLASMA Specimen Type: PLASMA Comment: No hemolysis noted. Ordering Provider: HOMER VICENTE Report Released Date/Time: Jun 05, 2025 09:49 AM Reporting Lab: [facility] [address] [facility] [address] Performing Lab: [address] [address] CREATININE 1.04 mg/dL 0.7-1.3 UREA NITROGEN 17.9 mg/dL 9.0-25.0 GLUCOSE 105 mg/dL H 72-99 SODIUM 143 meq/L 136-145 POTASSIUM 4.7 meq/L 3.5-5 CHLORIDE 106 meq/L 98-107 CARBON DIOXIDE 29 meq/L 22-31 CALCIUM 9.3 mg/dL 8.4-10.4 PROTEIN 7.3 g/dL 6-8.6 ALBUMIN 4.1 g/dL 3.4-5 TOTAL BILIRUBIN 0.8 mg/dL 0.2-1.2 ALKALINE PHOSPHATASE 103 U/L 40-150 AST/SGOT 30 U/L 5-34 ALT/SGPT 24 U/L 8-40 EGFR (CKD-EPI 2020) 72.6 >60 Jun 05, 2025 10:00 AM [facility] CBC BLOOD Specimen Type: BLOOD No comment entered. Ordering Provider: HOMER VICENTE Report Released Date/Time: Jun 05, 2025 09:49 AM Reporting Lab: [facility] [address] [facility] [address] Performing Lab: [facility] [address] [facility] [address] WBC 5.8 10*3/uL 3.6-11.2 RBC 4.22 10*6/uL 4.10-5.70 HGB 14.2 g/dL 13.1-16.8 HCT 41.7 38.2-48.4 MCV 98.8 fL 80.0-100.0 MCH 33.6 pg 27.0-34.0 MCHC 34.1 g/dL 33.0-36.0 PLT 195 10*3/uL 150-400 MPV 10.6 fL 7.5-11.2 RDW 13.4 11.8-15.1 LYMPHOCYTES, AUTO % 21 MONOCYTES, AUTO % 11 NEUTROPHILS, AUTO % 63 EOSINOPHILS, AUTO % 2 BASOPHILS, AUTO % 1 LYMPHOCYTES, ABSOLUTE 1.24 10*3/uL 0.77- 4.50 MONOCYTES, ABSOLUTE 0.65 10*3/uL 0.19-0. 80 NEUTROPHILS, ABSOLUTE 3.67 10*3/uL 2.10- 8.00 EOSINOPHILS, ABSOLUTE 0.09 10*3/uL 0.00- 0.60 BASOPHILS, ABSOLUTE 0.07 10*3/uL 0.00-0. 20 Vital Signs: All taken on the encounter date This section contains inpatient and outpatient Vital Signs collected on the date of the Encounter. Date/Time Temperature Pulse Blood Pressure Respiratory Rate SP02 Pain Height Weight Body Mass Index Source Jun 13, 2025 10:49 AM 138/84 mm[Hg] [facility] Jun 13, 2025 10:24 AM 142/70 mm[Hg] [facility] Jun 13, 2025 10:13 AM 97.4 F 76 /min 152/85 mm[Hg] 18 /min 94 % 0 68 in 259 lb 39 [facility] Social History: Smoking Status (Most current) and Tobacco Use (All prior to encounter date) This section includes the most current, and the historical, smoking and tobacco- related health factors from the [facility] where the Encounter took place. Current Smoking Status This section includes the most current smoking, or tobacco-related health factor, from the [place] facility where the Encounter took place. Date/Time Current Smoking Status Comment Terestia mcdowell Dec 15, 2023 03:00 PM VA-TOBACCO FORMER USER [facility] Tobacco Use History This section includes a history of the smoking, or tobacco-related health factors, that were collected on or before the date of the Encounter. The data comes from the [place] facility where the Encounter took place. Date/Time Smoking Status/Tobacco Use Comment F acjavon Dec 15, 2023 03:00 PM VA-TOBACCO QUIT 15 YRS OR MORE [facility] Apr 25, 2022 03:00 PM VA-TOBACCO FORMER USER [facility] Apr 25, 2022 03:00 PM VA-TOBACCO QUIT 15 YRS OR MORE [facility] Apr 09, 2021 11:00 AM VA-TOBACCO FORMER USER [facility] Apr 09, 2021 11:00 AM VA-TOBACCO QUIT 15 YRS OR MORE [facility] Oct 12, 2018 02:10 PM VA-TOBACCO FORMER USER [facility] Oct 12, 2018 02:10 PM VA-TOBACCO QUIT 15 YRS OR MORE [facility] Encounter Notes: All associated encounter notes This section contains the clinical notes associated to the Encounter. Date/Time Encounter Note(s) Provider Source Jun 13, 2025 10:39 AM PRIMARY CARE NOTE: LOCAL TITLE: PRIMARY CARE PROVIDER ESTABLISHED VISIT [facility] STANDARD TITLE: PRIMARY CARE NOTE DATE OF NOTE: JUN 13, 2025@10:39 ENTRY DATE: JUN 13, 2025@10:40:01 AUTHOR: HOMER VICENTE EXP COSIGNER: URGENCY: STATUS: COMPLETED Patient is 79 and WHITE Self Identified Gender - NONE FOUND Reason for visit:Scheduled follow-up Chief Complaint: vet is here for reg scheduled follow up of chronic medical conditions History of Present Illness: Shashi feels well. Has some L knee discomfort. Using a quad cane and knee braces. requesting refills on empagliflozin and furosemide. 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), complicated 5) Anxiety Disorder NOS 6) Hypertrophy (Benign) of Prostate without Urinary obstruction 7) Fpc (current) use of Anticoagulants (ICD-9-CM V58.61) 8) Atrial Fibrillation 9) Encounter for Therapeutic Drug Monitoring (ICD-9-CM V58.83) 10) Atrial fibrillation 11) Hypertension 12) Hyperlipidemia 13) Benign prostatic hyperplasia 14) Mood disorder 15) Hearing loss 16) Medical examinations/reports status 17) TIA 18) Atrial fibrillation 19) Chronic instability of left knee joint 20) Obesity 21) Anxiety 22) Urine incontinence 23) Arthritis of left knee Medication Review: The essential med list for review which includes the patient's active VA prescriptions and if applicable, remote VA prescriptions, non-VA prescriptions, and discontinued VA prescriptions within the last 90 days and known allergies including local and remote allergies have been reviewed. Allergies:Patient has answered NKA Active and Recently Outpatient Medications (excluding Supplies): Active Outpatient Medications Status 1) CHOLECALCIF 50MCG (D3-2,000UNIT) TAB TAKE ONE TABLET BY ACTIVE MOUTH ONCE A DAY Indication: FOR VITAMIN D DEFICIENCY 2) EMPAGLIFLOZIN 25MG TAB TAKE ONE-HALF TABLET BY MOUTH ONCE A ACTIVE DAY Indication: FOR DIABETES 3) FUROSEMIDE 20MG TAB TAKE ONE TABLET BY MOUTH EVERY MORNING ACTIVE Indication: CHF Active Non-VA Medications Status 1) Non-VA ALPRAZOLAM 0.5MG TAB 0.5MG BY MOUTH AT BEDTIME ACTIVE 2) Non-VA ATORVASTATIN CALCIUM 80MG TAB 80MG BY MOUTH EVERY ACTIVE EVENING 3) Non-VA CITALOPRAM HYDROBROMIDE 40MG TAB 40MG BY MOUTH EVERY ACTIVE MORNING 4) Non-VA METOPROLOL TARTRATE 50MG TAB 25MG BY MOUTH TWICE A ACTIVE DAY Indication: FOR HIGH BLOOD PRESSURE 5) Non-VA OMEPRAZOLE 20MG EC CAP 20MG BY MOUTH EVERY MORNING ACTIVE BEFORE A MEAL 6) Non-VA TERAZOSIN HCL 10MG CAP 10MG BY MOUTH AT BEDTIME ACTIVE 7) Non-VA WARFARIN 5MG TAB BY MOUTH ONCE A DAY ACTIVE 10 Total Medications Review of Systems: except as in HPI above GENERAL: no fever, no weight loss HEENT: denies vertigo, no visual problems PULMONARY: denies SOB CARDIAC: denies chest pain, denies palpitations GI: no change in appetite, no nausea, no vomiting, no abd pain, no diarrhea : no nocturia, no polyuria, no dysuria, no hematuria EXT: denies pedal edema, no arthritis Physical Exam VITALS (most recent, as listed in the electronic record): B/P: 142/70 (06/13/2025 10:24) Pulse: 76 (06/13/2025 10:13) Temperature: 97.4 F [36.3 C] (06/13/2025 10:13) Weight: 259 lb [117.48 kg] (06/13/2025 10:13) Height: 68 in [172.7 cm] (06/13/2025 10:13) BMI: 39.5 Pain: 0 (06/13/2025 10:13) (0-10 scale) Please also see Exam in Assessment/ Plan note. GENERAL:cooperative,nad. HEENT:PERRL, EOMI,oropharynx moist. NECK:supple, no JVD, no lymphadenopathy, thyromegaly, no carotid bruit. CVS:RRR, no murmurs. LUNGS:CTA. ABD:soft, NT, BS + BACK:no CVA tenderness. EXT:no edema PPP. NEURO:A+O X 3 Data Review: HGA1C 5.6 % 06/05/2025 10:00 Lipid Panel: TRIGLYCERIDE 166 H mg/dL 06/05/2025 10:00 CHOLESTEROL 157 mg/dL 06/05/2025 10:00 HDL(New) 40 mg/dL 06/05/2025 10:00 CALCULATED LDL 84 mg/dL 06/05/2025 10:00 CMP: SODIUM 143 mEq/L 06/05/2025 10:00 POTASSIUM 4.7 mEq/L 06/05/2025 10:00 CHLORIDE 106 mEq/L 06/05/2025 10:00 UREA NITROGEN 17.9 mg/dL 06/05/2025 10:00 CREATININE 1.04 mg/dL 06/05/2025 10:00 CALCIUM 9.3 mg/dL 06/05/2025 10:00 PROTEIN 7.3 g/dL 06/05/2025 10:00 ALBUMIN 4.1 g/dL 06/05/2025 10:00 ALKALINE PHOSPHATASE 103 U/L 06/05/2025 10:00 ALT/SGPT 24 U/L 06/05/2025 10:00 AST/SGOT 30 U/L 06/05/2025 10:00 TOTAL BILIRUBIN 0.8 mg/dL 06/05/2025 10:00 CARBON DIOXIDE 29 mEq/L 06/05/2025 10:00 GLUCOSE 105 H mg/dL 06/05/2025 10:00 EGFR (CKD-EPI 2020) 72.6 06/05/2025 10:00 CBC: WBC 5.8 10*3/uL 06/05/2025 10:00 RBC 4.22 10*6/uL 06/05/2025 10:00 HGB 14.2 g/dL 06/05/2025 10:00 HCT 41.7 % 06/05/2025 10:00 MCV 98.8 fL 06/05/2025 10:00 MCH 33.6 pg 06/05/2025 10:00 MCHC 34.1 g/dL 06/05/2025 10:00 RDW 13.4 % 06/05/2025 10:00 PLT 195 10*3/uL 06/05/2025 10:00 MPV 10.6 fL 06/05/2025 10:00 NEUTROPHILS, AUTO % 63 % 06/05/2025 10:00 LYMPHOCYTES, AUTO % 21 % 06/05/2025 10:00 MONOCYTES, AUTO % 11 % 06/05/2025 10:00 EOSINOPHILS, AUTO % 2 % 06/05/2025 10:00 BASOPHILS, AUTO % 1 % 06/05/2025 10:00 NEUTROPHILS, ABSOLUTE 3.67 10*3/uL 06/05/2025 10:00 LYMPHOCYTES, ABSOLUTE 1.24 10*3/uL 06/05/2025 10:00 MONOCYTES, ABSOLUTE 0.65 10*3/uL 06/05/2025 10:00 EOSINOPHILS, ABSOLUTE 0.09 10*3/uL 06/05/2025 10:00 BASOPHILS, ABSOLUTE 0.07 10*3/uL 06/05/2025 10:00 PSA: No PSA EO data found TSH: TSH 0.892 uIU/mL 06/05/2025 10:00 UA: URINE COLOR Light-Yellow 09/13/2024 11:05 APPEARANCE Clear 09/13/2024 11:05 U.PH 6.0 09/13/2024 11:05 U.BILIRUBIN Negative mg/dL 09/13/2024 11:05 U.NITRITE Negative mg/dL 09/13/2024 11:05 URINE RBC/HPF 2 /HPF 09/13/2024 11:05 URINE WBC/HPF 1 /HPF 09/13/2024 11:05 SQUAMOUS EPITH. <1 /HPF 09/13/2024 11:05 Vitamin D: VITAMIN D, 25-HYDROXY 38.0 ng/mL 06/05/2025 10:00 Micral/Creat Profile: CREATuF: 61.8 (06/05/25 10:00) M/CREAT: comment (06/05/25 10:00) MICRAL: <5.0 (06/05/25 10:00) Result: Follow-up Action: Assessment/Plan: Shashi lost his of 55 years,in 2022. - L knee instability: Violat states left knee is doing well. Shashi feels well. Has some L knee discomfort. Using a quad cane and knee braces. He is doing home exercises and digital peddler. shashi has been doing well with these. h/o left knee giving out on him. States he has not fallen this year. He is using a quad cane. Violat is using a wrap around Knee brace. shashi also has ORIF of Left ankle. - Obesity: recommended vet to work on weight loss. Gave him program counselor's number to call. - Vit D deficiency: continue vitamin d 50 mcg 1 tab daily.will check levels next appointment. 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 saw [facility]. They Ordered coronary CTA to evaluate course. LVEDP 35 mm Hg - Diastolic CHF: worsened. LVEDP 35 mmHg. Added jarkatlyn and bola will discuss regarding seeing [place] Cardiology next appointment. - HLD/ Hypertriglyceridemia: stable lipids. Rec to avoid etoh and carbohydrates. continue atorvastatin 80 mg daily. - LUTS: violat saw 10/12/24 declines meds at this time, pt instructed to f/u in approx 3 months to reassess LUTS, - Atrial Fibrillation: stable. continue metoprolol and warfarin. - Anxiety: c/o anxiety, maria luisa when he has something important going on.shashi is seeing private PCP and is on celexa and Alprazolam. these help. - left Ankle fracture: shashi broke his ankle in dec and he had surgery on 12-24-21 at [facility], and had to miss his appointment. - TIA: was adm at [facility].Now on warfarin. monitored by private pcp. #- HTN:controlled.continue metoprolol 50 mg BID, continue terazosin 10 mg daily. - CHANTEL: uses CPAP - Anemia;stable hemoglobin since 2001 - HME - quit etoh and smoking 1966 - HCV is non rective 04-30-22 - HIV is Non reactive 11-09-18 Weight: 246.6 lb [112.1 kg] (11/03/2018 Weight: 240.2 lb [109.2 kg] (06/28/2019 , BMI: 36.6 Weight: 251.2 lb [114.2 kg] (04/09/2021, BMI: 38.3 Weight: 249 lb [112.94 kg] (04/25/2022, BMI: 37.9 Weight: 249.4 lb [113.13 kg] (08/29/2022, BMI: 38.0 Weight: 249 lb [112.94 kg] (03/09/2023, BMI: 37.9 Weight: 255.4 lb [115.85 kg] (09/13/2024, BMI: 38.9 Weight: 259 lb [117.48 kg] (06/13/2025, BMI: 39.5 RTC: I spent -45- minutes in reviewing progress notes, specialty notes, review of records, assessing and examining patient,labs evaluation, outline of treatment plan, money order clerk, patient education, collaboration with team members, and documentation of encounter. Total time spent was: __45__ minutes which includes ___20__ minutes of medical discussion with the patient CLINICAL REMINDERS COMPLETED HTN Assess for Elevated BP>=140/90 - N,P,PH: Repeat blood pressure: 138/84 The patient's blood pressure is usually adequately controlled. No medication changes are indicated at this time. /alyssa/ Homer Vicente MD. Staff Physcian. Signed: 06/13/2025 16:19 HOMER VICENTE [facility] Jun 13, 2025 10:18 AM NURSING NOTE: LOCAL TITLE: V15 PACT FACE TO FACE NOTE ST STANDARD TITLE: NURSING NOTE DATE OF NOTE: JUN 13, 2025@10:18 ENTRY DATE: JUN 13, 2025@10:18:44 AUTHOR: ANDRES COHEN COSIGNER: URGENCY: STATUS: COMPLETED Provider Visit: Patient Identifiers : Full Name Date of Reason for visit: Established Follow-Up Mode of Arrival: Assistive Device: cane Allergy Review: ALLERGIES/ADVERSE REACTIONS - NONE FOUND Allergy list reviewed and remains current. Recent Vital Signs: Temperature: 97.4 F [36.3 C] (06/13/2025 10:13) Pulse: 76 (06/13/2025 10:13) Respiration: 18 (06/13/2025 10:13) B/P: 152/85 (06/13/2025 10:13) Pain: 0 (06/13/2025 10:13) Wt: 259 lb [117.48 kg] (06/13/2025 10:13) Ht: 68 in [172.7 cm] (06/13/2025 10:13) BMI: 39.5 POX: 94% (06/13/2025 10:13) Manual BP: 142/70 PERSONAL HEALTH INVENTORY Notes: No data available for PHI note titles PERSONAL HEALTH INVENTORY - MAP: 09/13/2024 Personal Health Plan [place], Aspiration, Purpose (MAP) Family 03/09/2023 Personal Health Plan [place], Aspiration, Purpose (MAP) Family 08/29/2022 Personal Health Plan [place], Aspiration, Purpose (MAP) Family 04/09/2021 Personal Health Plan [place], Aspiration, Purpose (MAP) family makes vet happy What matters most to you in your life right now? [place] Response: Not much since my passed WHOLE HEALTH SHARED GOALS: PERSONAL HEALTH PLAN - SHARED GOALS: 09/13/2024 Php Shared Goals maintain health SHARED GOALS I can get back to working out Would you like to discuss any personal problem, family problem, alcohol use, drug use, or a mental or emotional illness? No Contact provided Primary Care phone number and encouraged to call if any questions or concerns. Review that after hours nurse line [phone] and emergency room are available 25/05 for patient use. Contact verbalized good understanding. No notification required for this note. Suicide Screen - V: C-SSRS Screening [place] Suicide Severity Rating Scale (C-SSRS) screener 1. Over the past month, have you wished you were or wished you could go to sleep and not wake up? No 2. Over the past month, have you had any actual thoughts of killing yourself? No 3. Over the past month, have you been thinking about how you might do this? Response not required due to responses to other questions. 4. Over the past month, have you had these thoughts and had some intention of acting on them? Response not required due to responses to other questions. 5. Over the past month, have you started to work out or worked out the details of how to kill yourself? Response not required due to responses to other questions. 6. If yes, at any time in the past month did you intend to carry out this plan? Response not required due to responses to other questions. 7. In your lifetime, have you ever done anything, started to do anything, or prepared to do anything to end your life (for example, collected pills, obtained a gun, gave away valuables, went to the roof but didn't jump)? No 8. If YES, was this within the past 3 months? Response not required due to responses to other questions. /alyssa/ AMINA STILESN, RN REGISTERED NURSE Signed: 06/13/2025 10:30 ANDRES COHEN [facility]
--- OUTSIDE RECORDS SUMMARY | 2025-06-15 09:17 | XMS_ITS | Continuity of Care Document ---
Author Name [facility] Organization [facility] Care Team Providers Care Senior Technologist Name Role Phone [facility] Unavailable Unavailable Problems Combined list of problems from Department of Defense and [facility] Affairs facilities. It does not include entries that were removed or entered in error. Problem Status Onset Date Problem Type Date of Resolution Comments Source Anxiety Active Condition [facility] Anxiety Disorder NOS Active Condition [facility] Arthritis of left knee Active Condition [facility] Atrial fibrillation Active Condition [facility] Atrial Fibrillation Active Condition [facility] Benign prostatic hyperplasia Active Condition [facility] Chronic congestive heart failure Active Condition [facility] Chronic instability of left knee joint Active Condition [facility] Coronary atherosclerosis Active Condition [facility] Encounter for Therapeutic Drug Monitoring (ICD-9-CM V58.83) Active Condition [facility] Generalized Anxiety Disorder Active Condition [facility] Hearing loss Active Condition [facility] Hypercholesterolemia Active Condition [facility] Hyperlipidemia Active Condition [facility] Hypertension Active Condition [facility]pertension Active Condition [facility] Hypertrophy (Benign) of Prostate without Urinary obstruction Active Condition [facility] Halfway (current) use of Anticoagulants (ICD-9-CM V58.61) Active Condition 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 Urine incontinence Active Condition [facility] Diagnosis: ICD-10-CM Z13.9 Encounter for screening, unspecified Active Diagnosis [facility] Diagnosis: ICD-10-CM I10 Essential (primary) hypertension Active Diagnosis [facility] Diagnosis: ICD-10-CM Z13.5 Encounter for screening for eye and ear disorders Active Diagnosis [facility] Diagnosis: ICD-10-CM R32 Unspecified urinary incontinence Active Diagnosis [facility] Diagnosis: ICD-10-CM M13.862 Other specified arthritis, left knee Active Diagnosis [facility] Diagnosis: ICD-10-CM M25.562 Pain in left knee Active Diagnosis [facility] Diagnosis: ICD-10-CM M25.569 Pain in unspecified knee Active Diagnosis [facility] Diagnosis: ICD-10-CM N32.81 Overactive bladder Active Diagnosis [facility] Diagnosis: ICD-10-CM H90.3 Sensorineural hearing loss, bilateral Active Diagnosis [facility] Diagnosis: ICD-10-CM R29.6 Repeated falls Active Diagnosis [facility] Diagnosis: ICD-10-CM M25.561 Pain in right knee Active Diagnosis [facility] Medications Combined list of outpatient medications from Department of Defense and [facility] Affairs facilities.Medications provided include [...] ACETAMIN OPHEN (APAP) FROM ALL MEDS. 05/20/2024 [id number] BRIGHT BERRY 2023 30 [facility] Divанна n ACETAMINOPH EN 325MG TAB TAKE TWO TABLETS BY MOUTH EVERY 6 HOURS NEEDED CAUTION: DO NOT EXCEED 4000MG PER DAY ACETAMIN OPHEN (APAP) FROM ALL MEDS. ORAL 05/20/2024 [id number] BRIGHT BERRY 2023 30 [facility] ALPRAZOLAM (ALPRAZOLAM ), 0.5MG, TABLET, ORAL, SANDOZ, 1000 ea. BOTTLE Active [id number] 2023 30 Pharmac y Data Transac tion Service Facilit y ALPRAZOLAM 0.5MG TAB TAKE ONE TABLET BY MOUTH AT BEDTIME ORAL ACTIVE CAITIE VICENTE NICOLE N 2018 [facility] ATORVASTATI N CA 80MG TAB TAKE ONE TABLET BY MOUTH EVERY EVENING ORAL ACTIVE CAITIE VICENTE NICOLE N 2018 [facility] ATORVASTATI N CALCIUM (ATORVASTAT IN CALCIUM), 80 MG, TABLET, ORAL, MYLAN, 500 ea. BOTTLE Active [id number] 2023 90 Pharmac y Data Transac tion Service Facilit y CARBOXYMETH YLCELLULOSE NA 0.5% SOLN,OPH INSTILL 1 DROP IN BOTH EYES FOUR TIMES A DAY NEEDED FOR DRY EYE(S) OPHTHA LMIC ACTIVE 06/14/2026 [id number] BEBETO SEE R 2024 30 [facility] CHOLECALCIF ENOCH 50MCG (2,000UNIT) TAB TAKE ONE TABLET BY MOUTH ONCE A DAY FOR VITAMIN D DEFICIEN CY ORAL ACTIVE 09/16/2025 [id number] CAITIE VICENTE N 2023 100 [facility] CITALOPRAM HYDROBROMID E 40MG TAB TAKE ONE TABLET BY MOUTH EVERY MORNING ORAL ACTIVE CAITIE VICENTE N 2018 [facility] EMPAGLIFLOZ IN 25MG TAB TAKE ONE-HALF TABLET BY MOUTH ONCE A DAY FOR DIABETES ORAL SUSPEND ED 06/14/2026 [id number] CAITIE VICENTE NICOLE N 2024 45 [facility] EMPAGLIFLOZ IN 25MG TAB TAKE ONE-HALF TABLET BY MOUTH ONCE A DAY FOR DIABETES ORAL DISCONT INUED 01/07/2026 [id number] CAITIE VICENTE N 2024 45 [facility] FUROSEMIDE 20MG TAB TAKE ONE TABLET BY MOUTH EVERY MORNING ORAL ACTIVE 06/14/2026 [id number] CAITIE VICENTE N 2024 90 [facility] FUROSEMIDE 20MG TAB TAKE ONE TABLET BY MOUTH EVERY MORNING ORAL DISCONT INUED 09/19/2025 [id number] CAITIE VICENTE N 2023 90 [facility] METOPROLOL TARTRATE (METOPROLOL TARTRATE), 25MG, TABLET, ORAL, MYLAN, 500 ea. BOTTLE Active [id number] 2023 180 Pharmac y Data Transac tion Service Facilit y METOPROLOL TARTRATE (METOPROLOL TARTRATE), 50MG, TABLET, ORAL, MYLAN, 1000 ea. BOTTLE Active [id number] 2023 90 Pharmac y Data Transac tion Service Facilit y METOPROLOL TARTRATE 50MG TAB TAKE ONE-HALF TABLET BY MOUTH TWICE A DAY ORAL ACTIVE CAITIE VICENTE N 2020 [facility] OMEPRAZOLE (omeprazole ), 20 MG, CAPSULE DR, ORAL, Bugcrowd, 1000 ea. BOTTLE Active [id number] 2023 90 Pharmac y Data Transac tion Service Facilit y OMEPRAZOLE 20MG CAP,EC TAKE 1 CAPSULE BY MOUTH EVERY MORNING BEFORE A MEAL ORAL ACTIVE CAITIE VICENTE N 2018 [facility] TERAZOSIN HCL (terazosin HCl), 5 MG, CAPSULE, ORAL, [facility], 100 ea. BOTTLE Cancele d [id number] : 2023 0 Pharmac y Data Transac tion Service Facilit y TERAZOSIN HCL 10MG CAP TAKE 1 CAPSULE BY MOUTH AT BEDTIME ORAL ACTIVE CAITIE VICENTEA N 2018 [facility] WARFARIN 5MG TAB TAKE BY MOUTH ONCE A DAY ORAL ACTIVE CAITIE VICENTEA N 2018 [facility] WARFARIN SODIUM (WARFARIN SODIUM), 10MG, TABLET, ORAL, Glo Bags [facility], 100 ea. BOTTLE Cancele d [id number] : 2023 0 Pharmac y Data Transac tion Service Facilit y Immunizations Combined list of available immunizations from the Department of Defense and Veterans Affairs facilities. Immunization Series Date Given Administered By Site Reaction Lot Number CVX Code Drug Communications Operator Status Comments Source TDAP 2023 RADHANIGEL Dionna RIGHT DELTO ID [id number] 115 complet ed [facility] COVID-19 (PFIZER), MRNA, LNP-S, PF, IZZY-SUCROSE, 30 MCG/0.3 ML (AGES 12+ YEARS) 1 2023 NIGEL GARCIA RIGHT DELTO ID [id number] 309 complet ed [facility] INFLUENZA, UNSPECIFIED FORMULATION 2022 88 complet ed HISTORICA L INFORMATI ON - FROM PATIENT'S RECALL, [facility] INFLUENZA VACCINE, QUADRIVALENT, ADJUVANTED 2021 205 complet ed [facility] PNEUMOCOCCAL CONJUGATE PCV20, POLYSACCHARID E [id number] CONJUGATE, ADJUVANT, PF 2021 216 complet ed [facility] COVID-19, MRNA, LNP-S, BIVALENT BOOSTER, PF, 30 MCG/0.3 ML DOSE 1 2021 300 complet ed PFR; [id number]; 3 [facility] ZOSTER RECOMBINANT 2 2021 187 complet ed [facility] COVID-19 (MODERNA), MRNA, LNP-S, PF, 100 MCG/0.5ML DOSE OR 50 MCG/0.25ML DOSE [address] [facility] N ZOSTER RECOMBINANT 1 2021 187 complet ed [facility] COVID-19, mRNA, LNP-S, PF, 100 mcg or 50 mcg dose 2021 [facility], () Not Given COVID-19, mRNA, LNP-S, PF, 100 mcg or 50 mcg dose [facility] COVID-19 (MODERNA), MRNA, LNP-S, PF, 100 MCG/0.5 ML DOSE 2 2020 207 complet ed [facility] COVID-19 (MODERNA), MRNA, LNP-S, PF, 100 MCG/0.5 ML DOSE 1 2020 207 complet ed [facility] zoster recombinant 2018 [facility], () Not Given zoster recombina nt DoD Influenza, high dose seasonal 2018 [facility], () Not Given Influenza , high dose seasonal DoD pneumococcal polysaccharid e PPV23 2018 [facility], () Not Given pneumococ sofia polysacch aride PPV23 DoD INFLUENZA, UNSPECIFIED FORMULATION 2017 88 complet ed [facility] Influenza, high dose seasonal 2016 [facility], () Not Given Influenza , high dose seasonal DoD Tdap 2016 [facility], () Not Given Tdap DoD Pneumococcal conjugate PCV 13 2016 [facility], () Not Given Pneumococ sofia conjugate PCV 13 DoD zoster live 2016 [facility], () Not Given zoster live DoD INFLUENZA, UNSPECIFIED FORMULATION [address] [facility] INFLUENZA, UNSPECIFIED FORMULATION 2001 88 complet ed [facility] TD(ADULT) UNSPECIFIED FORMULATION 2001 139 complet ed [facility] Results Combined list of recent chemistry, hematology and other laboratory results from Department of Defense and Veterans Affairs, ranging from 15 months to all on record, depending upon the facility. Order Name Results Value Reference Range Date Interpretation Specimen Comments Source VITAMIN D, 25-HYDROX Y 25-HYDROXYV ITAMIN D3 [MASS/VOLUM E] IN SERUM OR PLASMA 38.0 ng/mL 30 - 96 06/05 Specimen Type: SERUM No comment entered. Ordering Provider: JAYCOB VICENTE Report Released Date/Time: Jun 05, 2025 09:49 AM Reporting Lab: [facility] [address] [facility] [address] Performing Lab: [facility] [address] [facility] [address] [facility] MICRAL/CR EAT PROFILE (STL) ALBUMIN [MASS/VOLUM E] IN URINE <5.0mg /L 06/05 Specimen Type: URINE Comment: uALB/CREAT Ratio Unable to be calculated Unable to calculate due to Microalbumi n < 5.0 mg/L Ordering Provider: JAYCOB VICENTE Report Released Date/Time: Jun 05, 2025 09:49 AM Reporting Lab: [place] [address] [address] [facility] [address] Performing Lab: [place] [address] [facility] [phone] [place] [address] MICRAL/CR EAT PROFILE (STL) ALBUMIN/CRE ATININE [MASS RATIO] IN URINE commen tmg/g 0 - 29 06/05 Specimen Type: URINE Comment: uALB/CREAT Ratio Unable to be calculated Unable to calculate due to Microalbumi n < 5.0 mg/L Ordering Provider: JAYCOB VICENTE Report Released Date/Time: Jun 05, 2025 09:49 AM Reporting Lab: [place] [address] [facility] [phone] Performing Lab: [address] [phone] [place] [address] MICRAL/CR EAT PROFILE (STL) CREATININE [MASS/VOLUM E] IN URINE 61.8 mg/dL 63 - 166 06/05 L Specimen Type: URINE Comment: uALB/CREAT Ratio Unable to be calculated Unable to calculate due to Microalbumi n < 5.0 mg/L Ordering Provider: JAYCOB VICENTE Report Released Date/Time: Jun 05, 2025 09:49 AM Reporting Lab: [place] [address] [facility] [phone] Performing Lab: [phone] [place] [address] LIPID PANEL (STL) CHOLESTEROL [MASS/VOLUM E] IN SERUM OR PLASMA 157 mg/dL 0 - 200 06/05 Specimen Type: PLASMA Comment: No hemolysis noted. Ordering Provider: JAYCOB VICENTE Report Released Date/Time: Jun 05, 2025 09:49 AM Reporting Lab: [place] [address] [facility] [address] Performing Lab: [facility] [address] [facility] [phone] [facility] LIPID PANEL (STL) TRIGLYCERID E [MASS/VOLUM E] IN SERUM OR PLASMA 166 mg/dL 0 - 150 06/05 H Specimen Type: PLASMA Comment: No hemolysis noted. Ordering Provider: JAYCOB VICENTE Report Released Date/Time: Jun 05, 2025 09:49 AM Reporting Lab: [facility] [address] [facility] [address] Performing Lab: [address] [address] [facility] LIPID PANEL (STL) CHOLESTEROL IN LDL [MASS/VOLUM E] IN SERUM OR PLASMA BY CALCULATION 84 mg/dL 06/05 Specimen Type: PLASMA Comment: No hemolysis noted. Ordering Provider: JAYCOB VICENTE Report Released Date/Time: Jun 05, 2025 09:49 AM Reporting Lab: [facility] [address] [facility] [address] Performing Lab: [address] [phone] [facility] LIPID PANEL (STL) CHOLESTEROL IN HDL [MASS/VOLUM E] IN SERUM OR PLASMA 40 mg/dL 40 06/05 Specimen Type: PLASMA Comment: No hemolysis noted. Ordering Provider: JAYCOB VICENTE Report Released Date/Time: Jun 05, 2025 09:49 AM Reporting Lab: [facility] [address] [facility] [address] Performing Lab: [facility] [address] [place] [phone] [facility] HGA1C HEMOGLOBIN A1C/HEMOGLO BIN.TOTAL IN BLOOD 5.6 4.0 - 6.0 06/05 Specimen Type: BLOOD No comment entered. Ordering Provider: JAYCOB VICENTE Report Released Date/Time: Jun 05, 2025 09:49 AM Reporting Lab: [facility] [address] [place] [phone] Performing Lab: [facility] [address] [facility] [address] [facility] TSH (MA-PB) THYROTROPIN [UNITS/VOLU ME] IN SERUM OR PLASMA 0.892 u[IU]/ mL 0.47 - 5 06/05 Specimen Type: SERUM No comment entered. Ordering Provider: JAYCOB VICENTE Report Released Date/Time: Jun 05, 2025 09:49 AM Reporting Lab: [facility] [address] [place] [phone] Performing Lab: [place] [phone] COMPREHEN SIVE METABOLIC PANEL CREATININE [MASS/VOLUM E] IN SERUM OR PLASMA 1.04 mg/dL 0.7 - 1.3 06/05 Specimen Type: PLASMA Comment: No hemolysis noted. Ordering Provider: JAYCOB VICENTE Report Released Date/Time: Jun 05, 2025 09:49 AM Reporting Lab: [facility] [address] [place] [phone] Performing Lab: [address] [phone] [place] [address] COMPREHEN SIVE METABOLIC PANEL UREA NITROGEN [MASS/VOLUM E] IN SERUM OR PLASMA 17.9 mg/dL 9.0 - 25.0 06/05 Specimen Type: PLASMA Comment: No hemolysis noted. Ordering Provider: JAYCOB VICENTE Report Released Date/Time: Jun 05, 2025 09:49 AM Reporting Lab: [facility] [address] [place] [phone] Performing Lab: [place] [phone] [place] [address] COMPREHEN SIVE METABOLIC PANEL GLUCOSE [MASS/VOLUM E] IN SERUM OR PLASMA 105 mg/dL 72 - 99 06/05 H Specimen Type: PLASMA Comment: No hemolysis noted. Ordering Provider: JAYCOB VICENTE Report Released Date/Time: Jun 05, 2025 09:49 AM Reporting Lab: [facility] [address] [facility] [address] Performing Lab: [facility] [address] [facility] [address] [facility] COMPREHEN SIVE METABOLIC PANEL SODIUM [MOLES/VOLU ME] IN SERUM OR PLASMA 143 meq/L 136 - 145 06/05 Specimen Type: PLASMA Comment: No hemolysis noted. Ordering Provider: JAYCOB VICENTE Report Released Date/Time: Jun 05, 2025 09:49 AM Reporting Lab: [facility] [address] [facility] [address] Performing Lab: [facility] [address] [facility] [phone] [facility] COMPREHEN SIVE METABOLIC PANEL POTASSIUM [MOLES/VOLU ME] IN SERUM OR PLASMA 4.7 meq/L 3.5 - 5 06/05 Specimen Type: PLASMA Comment: No hemolysis noted. Ordering Provider: JAYCOB VICENTE Report Released Date/Time: Jun 05, 2025 09:49 AM Reporting Lab: [facility] [address] [facility] [phone] Performing Lab: [facility] [address] [facility] [phone] [facility] COMPREHEN SIVE METABOLIC PANEL CHLORIDE [MOLES/VOLU ME] IN SERUM OR PLASMA 106 meq/L 98 - 107 06/05 Specimen Type: PLASMA Comment: No hemolysis noted. Ordering Provider: JAYCOB VICENTE Report Released Date/Time: Jun 05, 2025 09:49 AM Reporting Lab: [facility] [address] [facility] [phone] Performing Lab: [facility] [address] [facility] [address] [facility] COMPREHEN SIVE METABOLIC PANEL CARBON DIOXIDE, TOTAL [MOLES/VOLU ME] IN SERUM OR PLASMA 29 meq/L 22 - 31 06/05 Specimen Type: PLASMA Comment: No hemolysis noted. Ordering Provider: JAYCOB VICENTE Report Released Date/Time: Jun 05, 2025 09:49 AM Reporting Lab: [facility] [address] [place], [place] [phone] Performing Lab: [facility] [address] [place] [phone] COMPREHEN SIVE METABOLIC PANEL CALCIUM [MASS/VOLUM E] IN SERUM OR PLASMA 9.3 mg/dL 8.4 - 10.4 06/05 Specimen Type: PLASMA Comment: No hemolysis noted. Ordering Provider: JAYCOB VICENTE Report Released Date/Time: Jun 05, 2025 09:49 AM Reporting Lab: [place] [address] Performing Lab: [place] [phone] COMPREHEN SIVE METABOLIC PANEL PROTEIN [MASS/VOLUM E] IN SERUM OR PLASMA 7.3 g/dL 6 - 8.6 06/05 Specimen Type: PLASMA Comment: No hemolysis noted. Ordering Provider: JAYCOB VICENTE Report Released Date/Time: Jun 05, 2025 09:49 AM Reporting Lab: [facility] [address] [place] [phone] Performing Lab: [address] [phone] [place] [address] COMPREHEN SIVE METABOLIC PANEL ALBUMIN [MASS/VOLUM E] IN SERUM OR PLASMA 4.1 g/dL 3.4 - 5 06/05 Specimen Type: PLASMA Comment: No hemolysis noted. Ordering Provider: JAYCOB VICENTE Report Released Date/Time: Jun 05, 2025 09:49 AM Reporting Lab: [place] [address] Performing Lab: [facility] [address] [place] [phone] [facility] COMPREHEN SIVE METABOLIC PANEL BILIRUBIN.T OTAL [MASS/VOLUM E] IN SERUM OR PLASMA 0.8 mg/dL 0.2 - 1.2 06/05 Specimen Type: PLASMA Comment: No hemolysis noted. Ordering Provider: JAYCOB VICENTE Report Released Date/Time: Jun 05, 2025 09:49 AM Reporting Lab: [facility] [address] [facility] [phone] Performing Lab: [facility] [address] [facility] [address] [facility] COMPREHEN SIVE METABOLIC PANEL ALKALINE PHOSPHATASE [ENZYMATIC ACTIVITY/VO LUME] IN SERUM OR PLASMA 103 U/L 40 - 150 06/05 Specimen Type: PLASMA Comment: No hemolysis noted. Ordering Provider: JAYCOB VICENTE Report Released Date/Time: Jun 05, 2025 09:49 AM Reporting Lab: [facility] [address] [facility] [address] Performing Lab: [address] [phone] [place] [address] COMPREHEN SIVE METABOLIC PANEL ASPARTATE AMINOTRANSF ERASE [ENZYMATIC ACTIVITY/VO LUME] IN SERUM OR PLASMA 30 U/L 5 - 34 06/05 Specimen Type: PLASMA Comment: No hemolysis noted. Ordering Provider: JAYCOB VICENTE Report Released Date/Time: Jun 05, 2025 09:49 AM Reporting Lab: [facility] [address] [place] [phone] Performing Lab: [facility] [address] [place] [phone] [facility] COMPREHEN SIVE METABOLIC PANEL ALANINE AMINOTRANSF ERASE [ENZYMATIC ACTIVITY/VO LUME] IN SERUM OR PLASMA 24 U/L 8 - 40 06/05 Specimen Type: PLASMA Comment: No hemolysis noted. Ordering Provider: JAYCOB VICENTE Report Released Date/Time: Jun 05, 2025 09:49 AM Reporting Lab: [facility] [address] [place] [phone] Performing Lab: [facility] [address] [place] [phone] [facility] COMPREHEN SIVE METABOLIC PANEL GLOMERULAR FILTRATION RATE/1.73 SQ M.PREDICTED [VOLUME RATE/AREA] IN SERUM, PLASMA OR BLOOD BY CREATININE- BASED FORMULA (CKD-EPI 2020) 72.6 60 06/05 Specimen Type: PLASMA Comment: No hemolysis noted. Ordering Provider: JAYCOB VICENTE Report Released Date/Time: Jun 05, 2025 09:49 AM Reporting Lab: [place] [address] Performing Lab: [address] CBC LEUKOCYTES [#/VOLUME] IN BLOOD BY AUTOMATED COUNT 5.8 10*3/u L 3.6 - 11.2 06/05 Specimen Type: BLOOD No comment entered. Ordering Provider: JAYCOB VICENTE Report Released Date/Time: Jun 05, 2025 09:49 AM Reporting Lab: [place] [address] Performing Lab: [address] CBC ERYTHROCYTE S [#/VOLUME] IN BLOOD BY AUTOMATED COUNT 4.22 10*6/u L 4.10 - 5.70 06/05 Specimen Type: BLOOD No comment entered. Ordering Provider: JAYCOB VICENTE Report Released Date/Time: Jun 05, 2025 09:49 AM Reporting Lab: [place] [address] Performing Lab: [address] [facility] HEMOGLOBIN [MASS/VOLUM E] IN BLOOD 14.2 g/dL 13.1 - 16.8 06/05 Specimen Type: BLOOD No comment entered. Ordering Provider: JAYCOB VICENTE Report Released Date/Time: Jun 05, 2025 09:49 AM Reporting Lab: [place] [address] Performing Lab: [address] [place] [address] [facility] CBC HEMATOCRIT [VOLUME FRACTION] OF BLOOD 41.7 38.2 - 48.4 06/05 Specimen Type: BLOOD No comment entered. Ordering Provider: JAYCOB VICENTE Report Released Date/Time: Jun 05, 2025 09:49 AM Reporting Lab: [address] [address] Performing Lab: [address] [address] [facility] CBC MCV [ENTITIC VOLUME] BY AUTOMATED COUNT 98.8 fL 80.0 - 100.0 06/05 Specimen Type: BLOOD No comment entered. Ordering Provider: JAYCOB VICENTE Report Released Date/Time: Jun 05, 2025 09:49 AM Reporting Lab: [address] [phone] Performing Lab: [address] [address] [facility] CBC MCH [ENTITIC MASS] BY AUTOMATED COUNT 33.6 pg 27.0 - 34.0 06/05 Specimen Type: BLOOD No comment entered. Ordering Provider: JAYCOB VICENTE Report Released Date/Time: Jun 05, 2025 09:49 AM Reporting Lab: [address] [address] Performing Lab: [address] [phone] [facility] CBC MCHC [MASS/VOLUM E] BY AUTOMATED COUNT 34.1 g/dL 33.0 - 36.0 06/05 Specimen Type: BLOOD No comment entered. Ordering Provider: JAYCOB VICENTE Report Released Date/Time: Jun 05, 2025 09:49 AM Reporting Lab: [address] [phone] Performing Lab: [address] [phone] [facility] CBC PLATELETS [#/VOLUME] IN BLOOD BY AUTOMATED COUNT 195 10*3/u L 150 - 400 06/05 Specimen Type: BLOOD No comment entered. Ordering Provider: JAYCOB VICENTE Report Released Date/Time: Jun 05, 2025 09:49 AM Reporting Lab: [address] [address] Performing Lab: [address] [phone] [place] [address] CBC PLATELET MEAN VOLUME [ENTITIC VOLUME] IN BLOOD BY AUTOMATED COUNT 10.6 fL 7.5 - 11.2 06/05 Specimen Type: BLOOD No comment entered. Ordering Provider: JAYCOB VICENTE Report Released Date/Time: Jun 05, 2025 09:49 AM Reporting Lab: [address] [phone] Performing Lab: [phone] [place] [address] CBC ERYTHROCYTE DISTRIBUTIO N WIDTH [RATIO] BY AUTOMATED COUNT 13.4 11.8 - 15.1 06/05 Specimen Type: BLOOD No comment entered. Ordering Provider: JAYCOB VICENTE Report Released Date/Time: Jun 05, 2025 09:49 AM Reporting Lab: [address] [phone] Performing Lab: [phone] [place] [address] CBC LYMPHOCYTES /100 LEUKOCYTES IN BLOOD BY AUTOMATED COUNT 21 06/05 Specimen Type: BLOOD No comment entered. Ordering Provider: JAYCOB VICENTE Report Released Date/Time: Jun 05, 2025 09:49 AM Reporting Lab: [address] [address] Performing Lab: [address] [address] [facility] CBC MONOCYTES/1 00 LEUKOCYTES IN BLOOD BY AUTOMATED COUNT 11 06/05 Specimen Type: BLOOD No comment entered. Ordering Provider: JAYCOB VICENTE Report Released Date/Time: Jun 05, 2025 09:49 AM Reporting Lab: [facility] [address] [facility] [address] Performing Lab: [facility] [address] [facility] [address] [facility] CBC NEUTROPHILS /100 LEUKOCYTES IN BLOOD BY AUTOMATED COUNT 63 06/05 Specimen Type: BLOOD No comment entered. Ordering Provider: JAYCOB VICENTE Report Released Date/Time: Jun 05, 2025 09:49 AM Reporting Lab: [facility] [address] [facility] [address] Performing Lab: [facility] [address] [facility] [phone] [place] [address] CBC EOSINOPHILS /100 LEUKOCYTES IN BLOOD BY AUTOMATED COUNT 2 06/05 Specimen Type: BLOOD No comment entered. Ordering Provider: JAYCOB VICENTE Report Released Date/Time: Jun 05, 2025 09:49 AM Reporting Lab: [facility] [address] [facility] [address] Performing Lab: [phone] [place] [address] CBC BASOPHILS/1 00 LEUKOCYTES IN BLOOD BY AUTOMATED COUNT 1 06/05 Specimen Type: BLOOD No comment entered. Ordering Provider: JAYCOB VICENTE Report Released Date/Time: Jun 05, 2025 09:49 AM Reporting Lab: [facility] [address] [facility] [address] Performing Lab: [facility] [address] [facility] [phone] [place] [address] CBC LYMPHOCYTES [#/VOLUME] IN BLOOD BY AUTOMATED COUNT 1.24 10*3/u L 0.77 - 4.50 06/05 Specimen Type: BLOOD No comment entered. Ordering Provider: JAYCOB VICENTE Report Released Date/Time: Jun 05, 2025 09:49 AM Reporting Lab: [facility] [address] [place] [phone] Performing Lab: [facility] [address] [place] [phone] [facility] CBC MONOCYTES [#/VOLUME] IN BLOOD BY AUTOMATED COUNT 0.65 10*3/u L 0.19 - 0.80 06/05 Specimen Type: BLOOD No comment entered. Ordering Provider: JAYCOB VICENTE Report Released Date/Time: Jun 05, 2025 09:49 AM Reporting Lab: [facility] [address] [place] [phone] Performing Lab: [place] [id number] CBC NEUTROPHILS [#/VOLUME] IN BLOOD BY AUTOMATED COUNT 3.67 10*3/u L 2.10 - 8.00 06/05 Specimen Type: BLOOD No comment entered. Ordering Provider: JAYCOB VICENTE Report Released Date/Time: Jun 05, 2025 09:49 AM Reporting Lab: [address] [address] Performing Lab: [place] [id number] CBC EOSINOPHILS [#/VOLUME] IN BLOOD BY AUTOMATED COUNT 0.09 10*3/u L 0.00 - 0.60 06/05 Specimen Type: BLOOD No comment entered. Ordering Provider: JAYCOB VICENTE Report Released Date/Time: Jun 05, 2025 09:49 AM Reporting Lab: [address] [address] Performing Lab: [address] [address] [facility] CBC BASOPHILS [#/VOLUME] IN BLOOD BY AUTOMATED COUNT 0.07 10*3/u L 0.00 - 0.20 06/05 Specimen Type: BLOOD No comment entered. Ordering Provider: JAYCOB VICENTE Report Released Date/Time: Jun 05, 2025 09:49 AM Reporting Lab: [facility] [address] [facility] [address] Performing Lab: [facility] [address] [place] [phone] [facility] HGA1C HEMOGLOBIN A1C/HEMOGLO BIN.TOTAL IN BLOOD 5.4 4.0 - 6.0 09/13 Specimen Type: BLOOD No comment entered. Ordering Provider: JAYCOB VICENTE Report Released Date/Time: Sep 13, 2024 10:52 AM Reporting Lab: [facility] [address] [facility] [address] Performing Lab: [address] [address] [facility] MICRAL/CR EAT PROFILE (STL) ALBUMIN [MASS/VOLUM E] IN URINE 10.4 mg/L 09/13 Specimen Type: URINE No comment entered. Ordering Provider: JAYCOB VICENTE Report Released Date/Time: Sep 13, 2024 10:52 AM Reporting Lab: [facility] [address] [facility] [address] Performing Lab: [address] [address] [facility] MICRAL/CR EAT PROFILE (STL) ALBUMIN/CRE ATININE [MASS RATIO] IN URINE 11 mg/g 0 - 29 09/13 Specimen Type: URINE No comment entered. Ordering Provider: JAYCOB VICENTE Report Released Date/Time: Sep 13, 2024 10:52 AM Reporting Lab: [facility] [address] [place] [phone] Performing Lab: [facility] [address] [place] [phone] [facility] MICRAL/CR EAT PROFILE (STL) CREATININE [MASS/VOLUM E] IN URINE 98.6 mg/dL 63 - 166 09/13 Specimen Type: URINE No comment entered. Ordering Provider: JAYCOB VICENTE Report Released Date/Time: Sep 13, 2024 10:52 AM Reporting Lab: [place] [id number] [facility] [address] Performing Lab: [address] [address] [facility] URINALYSI S (STL-PB) COLOR OF URINE Light- Yellow 09/13 Specimen Type: URINE No comment entered. Ordering Provider: JAYCOB VICENTE Report Released Date/Time: Sep 13, 2024 10:52 AM Reporting Lab: [address] [address] Performing Lab: [address] [address] [facility] URINALYSI S (STL-PB) BILIRUBIN.T OTAL [PRESENCE] IN URINE BY TEST STRIP Negati vemg/d L 09/13 Specimen Type: URINE No comment entered. Ordering Provider: JAYCOB VICENTE Report Released Date/Time: Sep 13, 2024 10:52 AM Reporting Lab: [address] [address] Performing Lab: [address] [address] [facility] URINALYSI S (STL-PB) PH OF URINE BY TEST STRIP 6.0 5.0 - 8.0 09/13 Specimen Type: URINE No comment entered. Ordering Provider: JAYCOB VICENTE Report Released Date/Time: Sep 13, 2024 10:52 AM Reporting Lab: [address] [address] Performing Lab: [address] [address] [facility] URINALYSI S (STL-PB) LEUKOCYTES [#/AREA] IN URINE SEDIMENT BY MICROSCOPY HIGH POWER FIELD 1 /[HPF] 0 - 5 09/13 Specimen Type: URINE No comment entered. Ordering Provider: JAYCOB VICENTE Report Released Date/Time: Sep 13, 2024 10:52 AM Reporting Lab: [facility] [address] [facility] [address] Performing Lab: [facility] [address] [place] [phone] [facility] URINALYSI S (STL-PB) ERYTHROCYTE S [#/VOLUME] IN URINE SEDIMENT BY MICROSCOPY HIGH POWER FIELD 2 /[HPF] 0 - 5 09/13 Specimen Type: URINE No comment entered. Ordering Provider: JAYCOB VICENTE Report Released Date/Time: Sep 13, 2024 10:52 AM Reporting Lab: [facility] [address] [place] [phone] Performing Lab: [address] [address] [facility] URINALYSI S (STL-PB) APPEARANCE OF URINE Clear 09/13 Specimen Type: URINE No comment entered. Ordering Provider: JAYCOB VICENTE Report Released Date/Time: Sep 13, 2024 10:52 AM Reporting Lab: [address] [address] Performing Lab: [address] [address] [facility] URINALYSI S (STL-PB) NITRITE [PRESENCE] IN URINE BY TEST STRIP Negati vemg/d L 09/13 Specimen Type: URINE No comment entered. Ordering Provider: JAYCOB VICENTE Report Released Date/Time: Sep 13, 2024 10:52 AM Reporting Lab: [address] [address] Performing Lab: [address] [address] [facility] URINALYSI S (STL-PB) EPITHELIAL CELLS [#/AREA] IN URINE SEDIMENT BY MICROSCOPY LOW POWER FIELD <1/[HP F] 0 - 5 09/13 Specimen Type: URINE No comment entered. Ordering Provider: JAYCOB VICENTE Report Released Date/Time: Sep 13, 2024 10:52 AM Reporting Lab: [facility] [address] [facility] [address] Performing Lab: [facility] [address] [place] [phone] [facility] URINALYSI S (STL-PB) GLUCOSE [MASS/VOLUM E] IN URINE BY TEST STRIP >mg/dL 09/13 H Specimen Type: URINE No comment entered. Ordering Provider: JAYCOB VICENTE Report Released Date/Time: Sep 13, 2024 10:52 AM Reporting Lab: [facility] [address] [place] [phone] Performing Lab: [facility] [address] [place] [phone] [place] [address] URINALYSI S (STL-PB) PROTEIN [MASS/VOLUM E] IN URINE BY TEST STRIP 20 mg/dL 09/13 H Specimen Type: URINE No comment entered. Ordering Provider: JAYCOB VICENTE Report Released Date/Time: Sep 13, 2024 10:52 AM Reporting Lab: [facility] [address] [place] [phone] Performing Lab: [facility] [address] [place] [phone] [place] [address] URINALYSI S (STL-PB) URN.UROBILI NOGEN Normal mg/dL 09/13 Specimen Type: URINE No comment entered. Ordering Provider: JAYCOB VICENTE Report Released Date/Time: Sep 13, 2024 10:52 AM Reporting Lab: [facility] [address] [place] [phone] Performing Lab: [facility] [address] [place] [phone] [place] [address] URINALYSI S (STL-PB) HEMOGLOBIN [MASS/VOLUM E] IN URINE BY TEST STRIP Negati vemg/d L 09/13 Specimen Type: URINE No comment entered. Ordering Provider: JAYCOB VICENTE Report Released Date/Time: Sep 13, 2024 10:52 AM Reporting Lab: [address] [address] Performing Lab: [address] [address] [facility] URINALYSI S (STL-PB) KETONES [MASS/VOLUM E] IN URINE BY TEST STRIP Negati vemg/d L 09/13 Specimen Type: URINE No comment entered. Ordering Provider: JAYCOB VICENTE Report Released Date/Time: Sep 13, 2024 10:52 AM Reporting Lab: [address] [address] Performing Lab: [phone] [place] [address] URINALYSI S (STL-PB) URN.LEUK.ES T. Negati vemg/d L 09/13 Specimen Type: URINE No comment entered. Ordering Provider: JAYCOB VICENTE Report Released Date/Time: Sep 13, 2024 10:52 AM Reporting Lab: [address] [address] Performing Lab: [phone] [place] [address] URINALYSI S (STL-PB) SPECIFIC GRAVITY OF URINE 1.025 09/13 Specimen Type: URINE No comment entered. Ordering Provider: JAYCOB VICENTE Report Released Date/Time: Sep 13, 2024 10:52 AM Reporting Lab: [address] [address] Performing Lab: [phone] [place] [address] Vital Signs Combined list of inpatient and outpatient Vital Signs from Department of Defense and Veterans Affairs, ranging from 12 months to all on record, depending upon the facility. Vital Sign Value Date Comments Source SYSTOLIC BLOOD PRESSURE 152 06/13/20 25 10:13:14 [facility] DIASTOLIC BLOOD PRESSURE 85 08/12/2 025 10:13:14 [facility] PULSE OXIMETRY 94 % 06/13/2025 10:13:14 [facility] WEIGHT 259 06/13/2025 10:13:14 [facility] BMI 39 kg/m2 06/13/2025 10:13:14 [facility] PAIN 0 06/13/2025 10:13:14 [facility] HEIGHT 68 06/13/2025 10:13:14 [facility] TEMPERATURE 97.4 06/13/2025 10:13:14 [facility] PULSE 76 06/13/2025 10:13:14 [facility] RESPIRATION 18 06/13/2025 10:13:14 [facility] SYSTOLIC BLOOD PRESSURE 152 01/19/20 25 08:32:25 [facility] DIASTOLIC BLOOD PRESSURE 84 025 08:32:25 [facility] PULSE OXIMETRY 94 01/18/2025 08:32:25 [facility] PAIN 0 01/18/2025 08:32:25 [facility] HEIGHT 67 01/18/2025 08:32:25 [facility] TEMPERATURE 97.3 01/18/2025 08:32:25 [facility] PULSE 84 01/18/2025 08:32:25 [facility] RESPIRATION 20 01/18/2025 08:32:25 [facility] SYSTOLIC BLOOD PRESSURE 146 10/12/20 24 11:18:14 [facility] DIASTOLIC BLOOD PRESSURE 79 024 11:18:14 [facility] PULSE OXIMETRY 96 10/12/2024 11:18:14 [facility] WEIGHT 255.8 10/12/2024 11:18:14 [facility] BMI 40 kg/m2 10/12/2024 11:18:14 [facility] PAIN 0 10/12/2024 11:18:14 [facility] HEIGHT 67 10/12/2024 11:18:14 [facility] TEMPERATURE 97.6 10/12/2024 11:18:14 [facility] PULSE 92 10/12/2024 11:18:14 [facility] RESPIRATION 18 10/12/2024 11:18:14 [facility] SYSTOLIC BLOOD PRESSURE 147 09/13/20 10:02:48 [facility] DIASTOLIC BLOOD PRESSURE 79 024 10:02:48 [facility] PULSE OXIMETRY 97 09/13/2024 10:02:48 [facility] WEIGHT 255.4 09/13/2024 10:02:48 [facility] BMI 39 kg/m2 09/13/2024 10:02:48 [facility] PAIN 0 09/13/2024 10:02:48 [facility] HEIGHT 68 09/13/2024 10:02:48 [facility] TEMPERATURE 98 09/13/2024 10:02:48 [facility] PULSE 74 09/13/2024 10:02:48 [facility] RESPIRATION 18 09/13/2024 10:02:48 [facility] Encounters Combined list of: 1) Encounters from Department of Veterans Affairs facilities going backup to the last 18 months, not all VA inpatient encounters are included; 2) Encounters from the Department of Defense facilities going backup to 280 months. Location Location Details Encounter Type Encounter Number Reason For Visit Attending Provider ADM Date DC Date Status Disposition Source [facility] REPAIR/MOD IFYING [id number] Diagnos is: ICD-10- CM H90.3 Sensori neural hearing loss, GISELLE Oneal S E 02/01 [facility] [place] [id number] Diagnos is: ICD-10- CM H90.3 Sensori neural hearing loss, GISELLE Oneal S E 02/01 [facility] Outpatient Encounter [id number] 04/06 [facility] Outpatient Encounter [id number] 04/11 [facility] Outpatient Encounter [id number] 04/15 [facility] Outpatient Encounter [id number] Diagnos is: ICD-10- CM M25.561 Pain in right knee KATENOHEMY CARLOS S 04/16 [facility] EMERGENCY DEPT VISIT MOD MDM [id number] Diagnos is: ICD-10- CM R29.6 Radha Jacobs M 04/20 [facility] Outpatient Encounter [id number] Radha BERRY M 04/20 [facility] Outpatient Encounter [id number] 04/22 [facility] Outpatient Encounter [id number] 05/30 [facility] HEARING AID FITTING/CH ECKING [id number] Diagnos is: ICD-10- CM H90.3 Sensori neural hearing loss, mariamater TIGRE Butts 06/15 [facility] Outpatient Encounter [id number] SARAH PAITNO 09/05 [facility] OFFICE O/P EST MOD 30 MIN [id number] Diagnos is: ICD-10- CM R32 Unspeci fied urinary inconti JEFFRY Chandler N 09/13 [facility] Outpatient Encounter [id number] 09/14 [facility] Outpatient Encounter [id number] 09/14 [facility] Outpatient Encounter [id number] 09/14 [facility] Outpatient Encounter [id number] 09/15 [facility] OFFICE O/P NEW LOW 30 MIN [id number] Diagnos is: ICD-10- CM N32.81 Overact jovan bladder RISSA MORGAN MA 10/12 [facility] THERAPEUTI C EXERCISES [id number] Diagnos is: ICD-10- CM M25.569 Pain in unspeci fied knee AD,BR EANNA 10/14 [facility] Outpatient Encounter [id number] 10/15 [facility] Outpatient Encounter [id number] 10/18 [facility] THERAPEUTI C EXERCISES [id number] Diagnos is: ICD-10- CM M25.562 Pain in left knee AD,BR EANNA 11/03 [facility] Outpatient Encounter [id number] 11/09 [facility] N [facility] SYNCH AUDIO-VIDE O EST SF 10 [id number] Diagnos is: ICD-10- CM M13.862 Other specifi ed arthrit is, left knee JEFFRY VICENTE N 11/14 [facility] Outpatient Encounter [id number] 11/14 [facility] Outpatient Encounter [id number] 12/20 [facility] Outpatient Encounter [id number] 12/28 [facility] Outpatient Encounter [id number] 01/03 [facility] Outpatient Encounter [id number] 01/09 [facility] OFFICE O/P EST LOW 20 MIN [id number] Diagnos is: ICD-10- CM R32 Unspeci fied urinary inconti RISSA Hwang MA 01/18 [facility] Outpatient Encounter [id number] 02/01 [facility] Outpatient Encounter [id number] 06/01 [facility] Outpatient Encounter [id number] KENNETH BLACKMON 06/02 [facility] Outpatient Encounter [id number] SARAH PATINO 06/08 [facility] Outpatient Encounter [id number] 06/13 [facility] IMG RTA DETCJ/MNTR DS STAFF [id number] Diagnos is: ICD-10- CM Z13.5 Encount er for screeni ng for eye and ear disorde rs KENNETH BLACKMON 06/13 [facility] OFFICE O/P EST MOD 30 MIN [id number] Diagnos is: ICD-10- CM I10 Essenti al (primar y) hyperte nsion JEFFRY VICENTE N 06/13 [facility] Outpatient Encounter [id number] Diagnos is: ICD-10- CM Z13.9 Encount er for screeni ng, unspeci GEOVANNY Elaine 06/13 [facility] Outpatient Encounter [id number] JEFFRY VICENTE ANTONIO N 06/14 [facility] Social History Combined list of available smoking, tobacco, and other social history from Department of Defense and [facility] Affairs facilities. Social History Type Response Date Comment Sourc e Tobacco smoking status NHIS VA-TOBACCO USE FORMER CIGARETTES 06/08/2025 [facility] History of tobacco use UT-TOBACCO NEVER USED OTHER TYPE 06/08/2025 [facility] History of tobacco use VA-TOBACCO FORMER USER 12/15/2023 [facility] History of tobacco use VA-TOBACCO FORMER USER 04/25/2022 [facility] History of tobacco use VA-TOBACCO FORMER USER 04/09/2021 [facility] History of tobacco use VA-TOBACCO QUIT 15 YRS OR MORE 03/22/2020 [facility] History of tobacco use VA-TOBACCO FORMER USER 10/12/2018 [facility] History of tobacco use CURRENT NON-TOBACCO USER-HX OF USE 03/17/2005 [facility] History of tobacco use CURRENT NON-TOBACCO USER-HX OF USE 06/24/2004 [facility] History of tobacco use CURRENT NON-TOBACCO USER-HX OF USE 09/18/[address] [facility] History of tobacco use CURRENT NON-TOBACCO USER-HX OF USE 11/14/2002 [facility] This section is an empty social history section. DoD Plan of Care List of future care activities from Department of Veterans Affairs facilities. Additional future care activities may be listed in the Assessment and Plan section. Date/Time Care Activity Care Activity Detail Facili ty 07/20/2025 AMBULATORY - SURGERY AMBULATORY - SURGERY [facility]
--- OUTSIDE RECORDS SUMMARY | 2025-06-15 09:17 | XMS_ITS ---
Author Name [facility] [place] [facility] [place] Address [address] [place] [address] Care Team Providers Care Cyber Operator Name Role Phone HOMER VICENTE Primary Care [...] PART A Aug 02, 2009 PART A [id number] [phone] EMILIA,HERNESTO JASON PATIENT MEDICARE (WNR) MEDICARE (M) PART B Aug 02, 2009 PART B [id number] EMILIA,DA JASON PATIENT MEDICARE (WNR) MEDICARE (M) PART A Aug 02, 2009 PART A [id number] EMILIA,DA JASON PATIENT MEDICARE (WNR) MEDICARE (M) PART B Aug 02, 2009 PART B [id number] EMILIAHERNESTO PATIENT Selected Encounter This section includes the information on record at [place] for the Encounter. Date/Time Encounter Type Encounter Description Reason Provider Source Jan 18, 2025 09:00 AM OFFICE O/P EST LOW 20 MIN UROLOGY CLINIC ICD-10-CM R32 Unspecified urinary incontinence SHELBY MORGAN [facility] Encounter Template Text not used by [place] Assessments - Encounter Diagnoses This section includes the primary and secondary diagnoses documented for the Encounter. Date/Time Primary/Secondary Diagnosis Diagnosis Name Provider Source Jan 18, 2025 12:54 PM PRIMARY Unspecified urinary incontinence SHELBY MORGAN [facility] Jan 18, 2025 12:54 PM SECONDARY Overactive bladder SHELBY MORGAN [facility] Plan of Treatment: Future Appointments (+ 6 months) and Future Tests (+/- 45 days) The Plan of Treatment section includes future care activities for the patient from [facility] [place] [facility] This section includes future appointments and future orders which are active, pending or scheduled. Future Appointments This section includes appointments that were scheduled to occur 6 months from the date of the Encounter, up to a maximum of 20 appointments. The data comes from all [place] treatment facilities. Appointment Date/Time Appointment Type Appointme nt Facility Name Jun 13, 2025 09:30 AM AMBULATORY - NONE [facility] Jun 13, 2025 10:30 AM AMBULATORY - MEDICINE [facility] Jul 20, 2025 10:30 AM AMBULATORY - SURGERY [facility] Vital Signs: All taken on the encounter date This section contains inpatient and outpatient Vital Signs collected on the date of the Encounter. Date/Time Temperature Pulse Blood Pressure Respiratory Rate SP02 Pain Height Weight Body Mass Index Source Jan 18, 2025 08:32 AM 97.3 84 152/84 20 94 0 67 [facility] Social History: Smoking Status (Most current) and Tobacco Use (All prior to encounter date) This section includes the most current, and the historical, smoking and tobacco- related health factors from the [place] facility where the Encounter took place. Current Smoking Status This section includes the most current smoking, or tobacco-related health factor, from the [place] facility where the Encounter took place. Date/Time Current Smoking Status Comment Teresita ity March 22, 2020 08:58 AM [place]-TOBACCO QUIT 15 YRS OR MORE [facility] Tobacco Use History This section includes a history of the smoking, or tobacco-related health factors, that were collected on or before the date of the Encounter. The data comes from the [place] facility where the Encounter took place. Date/Time Smoking Status/Tobacco Use Comment Hung frey March 22, 2020 08:58 AM [place]-TOBACCO QUIT 15 YRS OR MORE [facility] Encounter Notes: All associated encounter notes This section contains the clinical notes associated to the Encounter. Date/Time Encounter Note(s) Provider Source Jan 18, 2025 08:40 AM UROLOGY NOTE: LOCAL TITLE: UROLOGY NOTE STANDARD TITLE: UROLOGY NOTE DATE OF NOTE: JAN 18, 2025@08:40 ENTRY DATE: JAN 18, 2025@08:40:18 AUTHOR: SHELBY MORGAN COSIGNER: URGENCY: STATUS: COMPLETED CHIEF COMPLAINT, HPI, EXAM & DATA CC: LUTS COMPLAINTS: 79 y/o M here for f/u for LUTS, pt states he feels pretty good, pt states he does urinate about every 30 minutes in the morning, pt states he's taking water pills and know this is why he urinates a lot as well as drinking lots of fluids during the day, pt states he does wear depends, pt states symptoms are not bothersome overall, pt states he's able to sleep through the night, pt denies any c/o hematuria, dysuria or UTI since last visit Pt c/o: FREQUENCY URGENCY WEAK STREAM xxxx Duration: 1 yr Bother Level: mostly satisfied Previous treatments: terazosin HISTORY/TREATMENTS. none PMH listed below and reviewed? Yes; DM, anti-coagulants (warfarin) APPEARANCE / PERFORMANCE STATUS: Pt a/o x 3, slow steady gait w/ cane noted, robust, comfortable CREATININE 0.95 mg/dL 09/13/2024 11:05 No PSA [...] PROBLEMS) ---- 1-LUTS - 79 y/o M here for f/u for LUTS, pt mostly c/o urinary frequency 2/2 diuretics and fluid intake, pt states he's not bothered by urinary symptoms overall, pt will continue current regimen, pt instructed to f/u in 6 months to reassess LUTS, pt verbalized understanding and agreeable w/ plan. NERISSA NS FOLLOW-UP (when/why): in 6 months to reassess LUTS (MORE INFORMATION) * [...] (Benign) of Prostate without Urinary obstruction 7) Senior Care (current) use of Anticoagulants (ICD-9-CM V58.61) 8) Atrial Fibrillation 9) Encounter for Therapeutic Drug Monitoring (ICD-9-CM V58.83) 10) Atrial fibrillation 11) Hypertension 12) Hyperlipidemia 13) Benign prostatic hyperplasia 14) Mood disorder 15) Hearing loss 16) Medical examinations/reports status 17) TIA 18) Atrial fibrillation 19) Chronic instability of left knee joint 20) Obesity 21) Anxiety 22) Urine incontinence 23) Arthritis of left knee MEDICATIONS: Active Outpatient Medications (including Supplies): Active [...] ONCE A DAY ACTIVE 10 Total Medications /es/ SHERMAN ZIMMERMAN, MSN, RN Nurse Practitioner, Urology Signed: 01/18/2025 12:54 SHELBY MORGAN [facility]
--- OUTSIDE RECORDS SUMMARY | 2025-06-15 09:17 | XMS_ITS | Encounter Summary ---
Author Name [facility] [place] Address [address] [place] [address] Care Team Providers Care Cleaning Validation Consultant Name Role Phone HOMER VICENTE Primary Care [...] PART A Aug 02, 2009 PART A [id number] [phone] EMILIA,DA JASON PATIENT MEDICARE (WNR) MEDICARE (M) PART B Aug 02, 2009 PART B [id number] EMILIA,DA JASON PATIENT MEDICARE (WNR) MEDICARE (M) PART B Aug 02, 2009 PART B [id number] EMILIA,DA JASON PATIENT MEDICARE (WNR) MEDICARE (M) PART A Aug 02, 2009 PART A [id number] EMILIA,DA JASON PATIENT Selected Encounter This section includes the information on record at [place] for the Encounter. Date/Time Encounter Type Encounter Description Reason Pro vider Source Feb 01, 2025 03:45 PM Outpatient Encounter GENERAL INTERNAL MEDICINE IHE Encounter Template Text not used by [place] Plan of Treatment: Future Appointments (+ 6 months) and Future Tests (+/- 45 days) The Plan of Treatment section includes future care activities for the patient from all [place] [facility]. This section includes future appointments and future orders which are active, pending or scheduled. Future Appointments This section includes appointments that were scheduled to occur 6 months from the date of the Encounter, up to a maximum of 20 appointments. The data comes from all [place] treatment facilities. Appointment Date/Time Appointment Type Appointme nt Facility Name Jun 13, 2025 09:30 AM AMBULATORY - NONE [facility] Jun 13, 2025 10:30 AM AMBULATORY - MEDICINE [facility] Jul 20, 2025 10:30 AM AMBULATORY - SURGERY [facility] Social History: Smoking Status (Most current) and Tobacco Use (All prior to encounter date) This section includes the most current, and the historical, smoking and tobacco- related health factors from the [place] facility where the Encounter took place. Current Smoking Status This section includes the most current smoking, or tobacco-related health factor, from the [place] facility where the Encounter took place. Date/Time Current Smoking Status Comment Facil ity March 22, 2020 08:58 AM [place]-TOBACCO QUIT 15 YRS OR MORE [facility] Tobacco Use History This section includes a history of the smoking, or tobacco-related health factors, that were collected on or before the date of the Encounter. The data comes from the [place] facility where the Encounter took place. Date/Time Smoking Status/Tobacco Use Comment F acility March 22, 2020 08:58 AM [place]-TOBACCO QUIT 15 YRS OR MORE [facility] Encounter Notes: All associated encounter notes This section contains the clinical notes associated to the Encounter. Date/Time Encounter Note(s) Provider Source Dec 27, 2024 03:45 PM SCANNED NOTE: LOCAL TITLE: NON VA CARE ST STANDARD TITLE: SCANNED NOTE DATE OF NOTE: DEC 27, 2024@15:45 ENTRY DATE: FEB 01, 2025@15:46:13 AUTHOR: HERMELINDA MARS COSIGNER: URGENCY: STATUS: COMPLETED Attached to this note is a scanned copy of [place] medical record consisting of the following document(s): Progress Note DOS: 05/25/24 12/27/24 From: [employer] To view the scanned document: 1) You must be logged into [facility] 2) Click on Toolbar 3) Sign on to Jaren Zhang /alyssa/ HERMELINDA MARS Registered Nurse Signed: 02/01/2025 15:50 HERMELINDA MARS [facility]
--- OUTSIDE RECORDS SUMMARY | 2025-06-15 09:17 | XMS_ITS | Clinical Summary ---
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 Gender Identity Not on file Sexual Orientation [...] 08/04/2017, 09/08/2002 Zoster Vaccines Completed 07/28/2022, 04/25/2022 Pneumococcal Vaccine: 50+ Years Completed 08/31/2024, 08/29/2022, 08/04/2017, Additional history exists Meningococcal B Vaccine Aged Out No l onger eligible based on patient's age to complete this topic Meningococcal Vaccine Aged Out No twyla lidia eligible based on patient's age to complete this topic RSV Immunizations Under 20 Months Aged Out No longer eligible based on patient's age to complete this topic Insurance [facility] [employer] Advance Directives Healthcare Agents on File Name Relationship Healthcare [facility] Communication Emelia Mccann Daughter Health Care Agent Care Teams Electrogalvanizing Machine Operator Relationship Specialty Start Date End Date Zach Jaramillo MD [address] [facility] [address] [place] [address] PCP - General INTERNAL MEDICINE 09/20/24
--- OUTSIDE RECORDS SUMMARY | 2025-06-15 09:17 | XMS_ITS | Encounter Summary ---
Author Name [facility] [place] [facility] [place] Address [address] [place] [address] Care Team Providers Care Band Tumbler Name Role Phone HOMER VICENTE Primary Care [...] PART A Aug 02, 2009 PART A [id number] [phone] EMILIA,DA JASON PATIENT MEDICARE (WNR) MEDICARE (M) PART B Aug 02, 2009 PART B [id number] EMILIA,DA JASON PATIENT MEDICARE (WNR) MEDICARE (M) PART A Aug 02, 2009 PART A [id number] EMILIA,DA JASON PATIENT MEDICARE (WNR) MEDICARE (M) PART B Aug 02, 2009 PART B [id number] EMILIA,HERNESTO GOMEZ PATIENT Selected Encounter This section includes the information on record at [place] for the Encounter. Date/Time Encounter Type Encounter Description Reason Provider Source Jun 14, 2025 10:18 AM Outpatient Encounter ADMIN PAT ACTIVTIES (MASNONCT) HOMER VICENTE IHE Encounter Template Text not used by [place] Plan of Treatment: Future Appointments (+ 6 months) and Future Tests (+/- 45 days) The Plan of Treatment section includes future care activities for the patient from all [place] treatmentfacilities. This section includes future appointments and future orders which are active, pending or scheduled. Future Appointments This section includes appointments that were scheduled to occur 6 months from the date of the Encounter, up to a maximum of 20 appointments. The data comes from all [place] treatment facilities. Appointment Date/Time Appointment Type Appointme nt Facility Name Jul 20, 2025 10:30 AM AMBULATORY - SURGERY [facility] Dec 12, 2025 02:00 PM AMBULATORY - MEDICINE [facility] Lab Results: +/- 30 days of the encounter This section includes the Chemistry and Hematology Lab Results on record with [place] for the patient. Radiology Reports and Pathology Reports are provided separately, in subsequent sections. Lab Results This section contains the Chemistry/Hematology Results that were resulted 30 days before or 30 daysafter the date of the Encounter. Date/Time Source Result Type Result - Unit Interpretation Reference Range Specimen Type Comment Jun 05, 2025 10:00 AM [facility] VITAMIN D, 25-HYDROXY SERUM Specimen Type: SERUM No comment entered. Ordering Provider: HOMER VICENTE Report Released Date/Time: Jun 05, 2025 09:49 AM Reporting Lab: [facility] [address] [facility] [phone] Performing Lab: [facility] [address] [place] [phone] VITAMIN D, 25-HYDROXY 38.0 ng/mL 30-96 Jun 05, 2025 10:00 AM [facility] MICRAL/CREAT PROFILE (STL) URINE Specimen Typ e: URINE Comment: uALB/CREAT Ratio Unable to be calculated Unable to calculate due to Microalbumin < 5.0 mg/L Ordering Provider: HOMER VICENTE Report Released Date/Time: Jun 05, 2025 09:49 AM Reporting Lab: [facility] [address] [facility] [address] Performing Lab: [facility] [address] [facility] [address] URINE ALBUMIN (PB-STL) <5.0 mg/L uACR (STL) comment mg/g 0-29 CREATININE URINE/OTHERS 61.8 mg/dL L 63-16 6 Jun 05, 2025 10:00 AM [facility] HGA1C BLOOD Specimen Type: BLOOD No comment entered. Ordering Provider: HOMER VICENTE Report Released Date/Time: Jun 05, 2025 09:49 AM Reporting Lab: [facility] [address] [facility] [phone] Performing Lab: [address] [address] HGA1C 5.6 4.0-6.0 Jun 05, 2025 10:00 AM [facility] LIPID PANEL (STL) PLASMA Specimen Type: PLASM A Comment: No hemolysis noted. Ordering Provider: HOMER VICENTE Report Released Date/Time: Jun 05, 2025 09:49 AM Reporting Lab: [facility] [address] [facility] [phone] Performing Lab: [address] [phone] CHOLESTEROL 157 mg/dL 0-200 TRIGLYCERIDE 166 mg/dL H 0-150 CALCULATED LDL 84 mg/dL HDL(New) 40 mg/dL >40 Jun 05, 2025 10:00 AM [facility] TSH (MA-PB) SERUM Specimen Type: SERUM No comment entered. Ordering Provider: HOMER VICENTE Report Released Date/Time: Jun 05, 2025 09:49 AM Reporting Lab: [facility] [address] [facility] [address] Performing Lab: [facility] [address] [place] [phone] TSH 0.892 u[IU]/mL 0.47-5 Jun 05, 2025 10:00 AM [facility] CBC BLOOD Specimen Type: BLOOD No comment entered. Ordering Provider: HOMER VICENTE Report Released Date/Time: Jun 05, 2025 09:49 AM Reporting Lab: [facility] [address] [facility] [phone] Performing Lab: [facility] [address] [place] [phone] WBC 5.8 10*3/uL 3.6-11.2 RBC 4.22 10*6/uL [...] 0.60 BASOPHILS, ABSOLUTE 0.07 10*3/uL 0.00-0. 20 Jun 05, 2025 10:00 AM [facility] COMPREHENSIVE METABOLIC PANEL PLASMA Specimen Type: PLASMA Comment: No hemolysis noted. Ordering Provider: HOMER VICENTE Report Released Date/Time: Jun 05, 2025 09:49 AM Reporting Lab: [facility] [address] [place] [phone] Performing Lab: [address] [address] CREATININE 1.04 mg/dL 0.7-1.3 UREA NITROGEN 17.9 [...] U/L 8-40 EGFR (CKD-EPI 2020) 72.6 >60 Social History: Smoking Status (Most current) and Tobacco Use (All prior to encounter date) This section includes the most current, and the historical, smoking and tobacco- related health factors from the [place] facility where the Encounter took place. Current Smoking Status This section includes the most current smoking, or tobacco-related health factor, from the [place] facility where the Encounter took place. Date/Time Current Smoking Status Comment Facil ity Jun 08, 2025 09:30 AM VA-TOBACCO USE FOR NIDHI CIGARETTES [facility] Tobacco Use History This section includes a history of the smoking, or tobacco-related health factors, that were collected on or before the date of the Encounter. The data comes from the [place] facility where the Encounter took place. Date/Time Smoking Status/Tobacco Use Comment F acility Jun 08, 2025 09:30 AM VA-TOBACCO USE FOR NIDHI CIGARETTES [facility] Jun 08, 2025 09:30 AM VA-TOBACCO USE FOR NIDHI OTHER TYPE [facility] March 22, 2020 08:58 AM VA-TOBACCO FORMER USER [facility] March 22, 2020 08:58 AM VA-TOBACCO QUIT 15 YRS OR MORE [facility] Encounter Notes: All associated encounter notes This section contains the clinical notes associated to the Encounter. Date/Time Encounter Note(s) Provider Source Jun 14, 2025 10:19 AM PHYSICIAN LETTERS: LOCAL TITLE: NO CONTACT LETTER ST STANDARD TITLE: PHYSICIAN LETTERS DATE OF NOTE: JUN 14, 2025@10:19 ENTRY DATE: JUN 14, 2025@10:19:34 AUTHOR: KARMEN MORTENSEN COSIGNER: URGENCY: STATUS: COMPLETED [facility] [address] [place] [address] JUN 14, 2025 LALITO KIRBY [address] [facility] [place] [address] Dear Lalito Kirby, Thank you for choosing the [facility] as your primary choice for health care. As a partner in your health care, we are attempting to contact you because we have been unsuccessful in reaching you by phone to schedule your clinic appointment. Please call us at [phone], extension [phone] to speak to us regarding making an appointment in the [facility] VICENTE clinic. Your good health is important to us. Please contact us within 2 weeks from the date of this letter. If we do not hear from you, we will notify your referring provider and a new referral will be required to schedule an appointment. Sincerely, KARMEN MORTENSEN ADVANCED FLUORESCENT LAMP REPLACER LALITO KIRBY SR, SYBIL R [facility] Jun 14, 2025 10:18 AM ADMINISTRATIVE NOT E: LOCAL TITLE: SCHEDULING NOTE ST STANDARD TITLE: ADMINISTRATIVE NOTE DATE OF NOTE: JUN 14, 2025@10:18 ENTRY DATE: JUN 14, 2025@10:18:27 AUTHOR: KARMEN MORTENSEN EXP COSIGNER: URGENCY: STATUS: COMPLETED Minimum Scheduling attempts to contact the [facility] have been made. RTC/Appt/Consult request will be discontinued after 14 days. Clinic: [facility] PACT B4 PCP SYLWIA: Dec First Call to [facility] - unsuccessful scheduling: Jun Discontinue date (14 calendar days after letter is mailed): Jun ADDITIONAL RESULTS FROM SCHEDULING ATTEMPTS: /alyssa/ KARMEN MORTENSEN ADVANCED FLUORESCENT LAMP REPLACER Signed: 06/14/2025 10:19 KARMEN MORTENSEN [facility]
== END 2025-06-15 09:06 | disposition home or self-care (01) ==
PROVIDERS: PCP Internal Medicine; Visit Provider Internal Medicine
DX: I73.9 Peripheral vascular disease, unspecified (principal)
CPT/HCPCS: 36415; 85610; 93923

== ENCOUNTER 2025-08-21 11:22 | Outpatient (RCR) | payer MEDICARE, OTHER, SELFPAY ==
[2025-06-15 11:06] LABS: INR 2.3; Prothrombin Time 24.9 Seconds (11.1-14.7)
[2025-08-02 11:04] LABS: INR 3.1; Prothrombin Time 30.4 Seconds (11.1-14.7)
[2025-08-21 12:14] LABS: INR 1.8; Prothrombin Time 20.7 Seconds (11.1-14.7)
== END 2025-09-13 23:59 | disposition home or self-care (01) ==
LOC: ANHLAB 11:22
PROVIDERS: PCP Internal Medicine; Visit Provider Internal Medicine
DX: I48.91 Unspecified atrial fibrillation (principal)
CPT/HCPCS: 36415; 85610

== ENCOUNTER 2025-09-01 10:11 | Outpatient (CLI) | payer MEDICARE, OTHER, SELFPAY ==
--- OUTSIDE RECORDS SUMMARY | 2010-07-10 05:30 | XMS_ITS | Continuity of Care Document ---
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 [address] , [address], [place], [address], [place]. tel:[phone] Family History Family Member Type Diagnosis Age At Onset No Information Payers Payer name Insurance type Covered green party ID Authoriza tion(s) Medicare [facility] [id number] For Life Mdcr Supp CI [id number] Social History Type Description Quantity Date Captured [...]
--- OUTSIDE RECORDS SUMMARY | 2025-09-01 10:45 | XMS_ITS | Clinical Summary ---
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 Gender Identity Not on file Sexual Orientation Not on file Plan of Treatment Health Maintenance Due Date Last Done Comments ASCVD LDL 1944 ASCVD Statin 1945 Annual Medicare Wellness Visit 2009 RSV Immunization or 60+ Years (1 - 1-dose 75+ series) 2019 COVID-19 Vaccine ( season) 2025 12/15/2023, 07/28/2022, 06/09/2022, Additional history exists Influenza Adult (#1) 2025 08/31/2024, 09/16/2023, 08/02/2018, Additional history exists DTaP, Tdap and Td Vaccines (3 - Td or Tdap) 09/13/2034 09/13/2024, 08/04/2017, 09/08/2002 Zoster Vaccines Completed 07/28/2022, 04/25/2022 Pneumococcal Vaccine: 50+ Years Completed 08/31/2024, 08/29/2022, 08/04/2017, Additional history exists Hepatitis A Vaccines Aged Out No long er eligible based on patient's age to complete this topic Meningococcal B Vaccine Aged Out No l onger eligible based on patient's age to complete this topic Meningococcal Vaccine Aged Out No twyla lidia eligible based on patient's age to complete this topic RSV Immunizations Under 20 Months Aged Out No longer eligible based on patient's age to complete this topic Insurance [facility] MEDICARE [facility] Advance Directives Healthcare Agents on File Name Relationship Healthcare Agent Relationshi p Communication Emelia Mccann Daughter Health Care Agent Care Teams Shearer Operator Relationship Specialty Start Date End Date Zach Jaramillo MD [address] [facility] [address] [place] [phone] PCP - General INTERNAL MEDICINE 09/20/24
[2025-09-01 11:09] LABS: Hematocrit 40.7 % (42.0-52.0); Hemoglobin 14.0 g/dL (14.0-18.0); Immature Granulocyte Percent A 1.7 % (0-0.5); Lymphocytes Absolute Auto 1.41 K/mm3 (0.9-3.2); Mean Corpuscular HGB Conc 34.4 g/dl (32-36); Mean Corpuscular Hemoglobin 33.9 pg (26-34); Mean Corpuscular Volume 98.5 fl (80-100); Nucleated Red Blood Cells Absolute Auto 0.000 K/mm3 (0.0-0.012); Nucleated Red Blood Cells Perc 0.0 % (0.0-0.2); Platelet Count Result 187 k/mm3 (150-375); Red Blood Count 4.13 M/mm3 (4.6-6.20); White Blood Count 6.5 K/mm3 (4.5-10.0)
[2025-09-01 11:24] LABS: Alanine Aminotransferase 23 U/L (6-50); Albumin Level 4.2 g/dL (3.5-5.1); Alkaline Phosphatase 73 U/L (38-126); Anion Gap 7 mmol/L (4-12); Aspartate Amino Transferase 33 U/L (17-59); Bilirubin,Total 1.7 mg/dL (0.2-1.3); Blood Urea Nitrogen 20 mg/dL (9-20); Calcium 8.7 mg/dL (8.4-10.2); Carbon Dioxide 28 mmol/L (22-30); Chloride 102 mmol/L (98-107); Cholesterol 162 mg/dL (0-200); Estimated Glomerular Filt Rate > 60; Glucose 93 mg/dL (65-110); HDL Direct 36 mg/dL; Potassium 4.1 mmol/L (3.4-5.0); Sodium 137 mmol/L (137-145); Total Protein 7.2 g/dL (6.3-8.2); Triglycerides 197 mg/dL (<150)
[2025-09-01 12:02] LABS: Prostate Specific Antigen 0.8 ng/mL (< OR = 4.0)
== END 2025-09-01 10:12 | disposition home or self-care (01) ==
LOC: ANHLAB 10:14
PROVIDERS: PCP Internal Medicine; Visit Provider Internal Medicine
DX: E78.00 Pure hypercholesterolemia, unspecified (principal); N42.9 Disorder of prostate, unspecified
CPT/HCPCS: 36415; 80053; 80061; 84153; 85025

== ENCOUNTER 2025-09-05 09:36 | Outpatient (CLI) | payer MEDICARE, OTHER, SELFPAY ==
--- OUTSIDE RECORDS SUMMARY | 2010-07-10 04:30 | XMS_ITS | Continuity of Care Document ---
Author Organization [facility] Address [address] [place] [address] [address] [place] [address] Phone Care Team Providers Care Fire Control Technician Name Role Phone Griffin OD, Balbir Unavailable Unavailable Procedures Procedure Date Eye Exam, New Patient Refraction Advance Directives Directive Yes / No Effective Date File Name No Information Encounters Encounter Description Practice Location Reason(s) For Visit Diagnoses Date Provider Providers Copied on Encounter [facility], [address] [place] [address] [address], [place], [place], [id number], [place] tel:[phone] [facility] No Information Jul-0 8-201 0 Griffin OD Balbir. [address] , [address], [place], [address], [place]. tel:[phone] Family History Family Member Type Diagnosis Age At Onset No Information Payers Payer name Insurance type Covered green party ID Authoriza tion(s) Medicare [facility] [id number] For Life Mdcr Supp CI [id number] Social History Type Description Quantity Date Captured Comments Sex Male Smoking Status No Information Chief Complaint And Reason For Visit No Information Reason For Referral Reason For Referral No Information History Of Present Illness Encounter Date Complaint History Of Prese nt Illness No Information Functional Status Date Functional Assessmen t No Information Instructions Date Instruction Additional Infor mation No Information Assessments Type Assessment Date No Information Patient Care Teams Name Effective Dates (start - stop) Status Members No Information
--- OUTSIDE RECORDS SUMMARY | 2025-09-05 10:46 | XMS_ITS | Clinical Summary ---
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
--- NOTE | 2025-10-05 12:28 | WPDPFTINT ---
PFT Procedure Performed PFT Procedure Performed Plethysmography (Lung Vol) Diffusing Cap (DLCO) Flow Vol Loop Spirometry w/o Bronchodil PFT Interpretation DOS: 09/05/2025 REQUESTING: Zach Jaramillo MD REASON FOR TESTING: DYspnea PULMONARY FUNCTION TESTS Results are reliable and reproducible. Repeatability of spirometry FEV1 maneuver is Grade A. GLI 2012 reference equations were used. Spirometry: The FEV1 is 1.94 L, 72%, normal. The FVC is 2.79 L, 77%, normal. The FEV1/FVC ratio is 70%, normal. No bronchodilator was administered Lung volumes: The total lung capacity is 5.31 L, 79%, normal. The functional residual capacity is 2.93 L, 81%, normal. The residual volume is 2.09 L, 81%, normal. The RV/TLC is 39%. Airway resistance is increased. Diffusion: DLCO is 17.4, 76%, normal. The DLCO/VA is 3.91, 105%, normal. Flow volume loop: The flow volume loop shows mild coving of the expiratory limb. IMPRESSION: This study shows normal spirometry without airflow obstruction, normal lung volumes and normal diffusion. There are no prior studies for comparison. Suzette Jeong MD
== END 2025-09-05 09:37 | disposition home or self-care (01) ==
LOC: ANHPFT 09:38
PROVIDERS: PCP Internal Medicine; Visit Provider Internal Medicine
DX: R06.02 Shortness of breath (principal)
CPT/HCPCS: 94375; 94726; 94729